=== PATIENT | male | born 1950 | race Caucasian/White ===

== ENCOUNTER 2017-09-23 20:06 | Emergency (ER) | payer MEDICARE, OTHER ==
[2017-09-23 20:38] VITALS: RESP 18
[2017-09-23] MEDS ORDERED: LORazepam 2 MG/ML INJ IV STA (20:49)
--- NOTE | 2017-09-23 21:05 | XR ---
EXAMINATION TYPE: XR chest 2V DATE OF EXAM: 09/23/2017 COMPARISON: 10/26/2012 INDICATION: Difficulty breathing short of breath TECHNIQUE: Frontal and lateral views of the chest are obtained. FINDINGS: The heart size is normal. The pulmonary vasculature is normal. The lungs are clear. Previous left lower lobe infiltrate has resolved. IMPRESSION: 1. No acute pulmonary process.
[2017-09-23 21:10] LABS: Basophils # (A) 0.1 k/uL (0-0.2); Basophils % (A) 1 %; Eosinophils # (A) 0.3 k/uL (0-0.7); Eosinophils % (A) 3 %; HCT 40.2 % (39.0-53.0); HGB 14.2 gm/dL (13.0-17.5); Hyperchromasia Slight; Lymphocytes # (A) 1.9 k/uL (1.0-4.8); Lymphocytes % (A) 21 %; MCH 30.5 pg (25.0-35.0); MCHC 35.5 g/dL (31.0-37.0); Mean Platelet Volume 8.4; Monocytes # (A) 0.6 k/uL (0-1.0); Monocytes % (A) 6 %; Neutrophils # (A) 6.2 k/uL (1.3-7.7); Neutrophils % (A) 68 %; Platelet Count 152 k/uL (150-450); Poikilocytosis Slight; RBC 4.67 m/uL (4.30-5.90); RDW 14.9 % (11.5-15.5)
[2017-09-23 21:21] LABS: ALT 35 U/L (21-72); AST 27 U/L (17-59); Albumin 4.1 g/dL (3.5-5.0); Alkaline Phosphatase 85 U/L (38-126); Anion Gap 12 mmol/L; Blood Urea Nitrogen 18 mg/dL (9-20); Carbon Dioxide 27 mmol/L (22-30); Chloride 105 mmol/L (98-107); Glucose 119 mg/dL (74-99); Magnesium 1.7 mg/dL (1.6-2.3); Potassium 4.2 mmol/L (3.5-5.1); Sodium 144 mmol/L (137-145); Total Bilirubin 0.5 mg/dL (0.2-1.3); Total Protein 6.3 g/dL (6.3-8.2)
--- NOTE | 2017-09-23 21:24 | ED ---
General Adult HPI - General Chief complaint: Dizziness Stated complaint: Lightheaded Time Seen by Provider: 09/23/17 20:44 Source: patient, family, RN notes reviewed Mode of arrival: wheelchair Limitations: no limitations - History of Present Illness Initial comments: Patient is a pleasant 67-year-old male presenting to the emergency department for not feeling well. Onset of symptoms was around noon. Patient denies having any chest discomfort despite being asked 4 times. He was even brought up to him that nursing had documented concerns for chest discomfort and he still denies this. Son is present who also denies patient never complained of chest discomfort. Patient states both of his arms feel tingly. Patient feels lightheaded. Patient does feel somewhat short of breath. Symptoms have been waxing and waning since onset. Symptoms are somewhat mild at this time. Patient does have a history of similar symptoms in the distant past related to anxiety. - Related Data Home Medications Medication Instructions Recorded Confirmed Aspirin EC [Ecotrin Low Dose] 81 mg PO DAILY 09/23/17 09/23/17 Atenolol [Tenormin] 25 mg PO DAILY 09/23/17 09/23/17 Atorvastatin Calcium [Lipitor] 80 mg PO HS 09/23/17 09/23/17 Lisinopril [Prinivil] 10 mg PO DAILY 09/23/17 09/23/17 Multivitamins, Thera [Multivitamin 1 tab PO DAILY 09/23/17 09/23/17 (formulary)] Sertraline HCl [Zoloft] 100 mg PO DAILY 09/23/17 09/23/17 Allergies Allergy/AdvReac Type Severity Reaction Status Date / Time No Known Allergies Allergy Verified 09/23/17 20:56 Review of Systems ROS Statement: Those systems with pertinent positive or pertinent negative responses have been documented in the HPI. ROS Other: All systems not noted in ROS Statement are negative. Constitutional: Denies: fever Eyes: Denies: eye pain ENT: Denies: ear pain Respiratory: Reports: dyspnea Cardiovascular: Denies: chest pain Endocrine: Reports: fatigue Gastrointestinal: Denies: abdominal pain Genitourinary: Denies: dysuria Musculoskeletal: Denies: back pain Skin: Denies: rash Neurological: Reports: paresthesias. Denies: weakness Past Medical History Past Medical History: Coronary Artery Disease (CAD), Hyperlipidemia, Hypertension History of Any Multi-Drug Resistant Organisms: None Reported Past Surgical History: Coronary Bypass/CABG Additional Past Surgical History / Comment(s): skin cancers Past Psychological History: Anxiety Smoking Status: Current some day smoker Past Alcohol Use History: None Reported Past Drug Use History: None Reported General Exam Limitations: no limitations General appearance: alert, in no apparent distress Head exam: Present: atraumatic Eye exam: Present: normal appearance, PERRL, EOMI. Absent: nystagmus ENT exam: Present: normal oropharynx Neck exam: Present: normal inspection Respiratory exam: Present: normal lung sounds bilaterally Cardiovascular Exam: Present: regular rate, normal rhythm GI/Abdominal exam: Present: soft. Absent: tenderness Extremities exam: Present: normal inspection. Absent: pedal edema, calf tenderness Neurological exam: Present: alert, CN II-XII intact. Absent: motor sensory deficit Expanded Neurological exam: Present: protecting the airway Speech: Present: fluid speech Cranial nerves: EOM's Intact: Normal, Facial Sensation: Normal Sensory exam: Upper Extremity Light Touch: Normal, Lower Extremity Light Touch: Normal Motor strength exam: RUE: 5, LUE: 5, RLE: 5, LLE: 5 Eye Response: (4) open spontaneously Motor Response: (6) obeys commands Verbal Response: (5) oriented Psychiatric exam: Present: normal affect, normal mood Skin exam: Present: normal color Course Vital Signs 09/23/17 09/23/17 09/23/17 20:09 20:37 21:07 Temperature 97.8 F Pulse Rate 85 71 Respiratory 20 18 18 Rate Blood Pressure 191/85 124/66 O2 Sat by Pulse 95 96 Oximetry 09/23/17 21:41 Temperature Pulse Rate 74 Respiratory 18 Rate Blood Pressure 117/61 O2 Sat by Pulse 95 Oximetry EKG Findings - EKG Comments: EKG Findings:: Normal sinus rhythm 80. [place] 158. QRS 100. QT 398. QTC 459. Normal axis. Right ventricular conduction delay. Normal QRS. No acute ST change. Medical Decision Making - Medical Decision Making Patient reevaluated and symptom-free following Ativan. Patient and family are updated on results. Patient is comfortable with discharge home. - Lab Data Result diagrams: 09/23/17 21:05 09/23/17 21:05 Lab Results 09/23/17 09/23/17 09/23/17 Range/Units 21:05 21:05 21:05 WBC 9.0 (3.8-10.6) k/uL RBC 4.67 (4.30-5.90) m/uL Hgb 14.2 (13.0-17.5) gm/dL Hct 40.2 (39.0-53.0) % MCV 86.0 (80.0-100.0) fL MCH 30.5 (25.0-35.0) pg MCHC 35.5 (31.0-37.0) g/dL RDW 14.9 (11.5-15.5) % Plt Count 152 (150-450) k/uL Neutrophils % 68 % Lymphocytes % 21 % Monocytes % 6 % Eosinophils % 3 % Basophils % 1 % Neutrophils # 6.2 (1.3-7.7) k/uL Lymphocytes # 1.9 (1.0-4.8) k/uL Monocytes # 0.6 (0-1.0) k/uL Eosinophils # 0.3 (0-0.7) k/uL Basophils # 0.1 (0-0.2) k/uL Hyperchromasia Slight Poikilocytosis Slight PT (9.0-12.0) sec INR (<1.2) APTT (22.0-30.0) sec D-Dimer (<0.60) mg/L FEU Sodium 144 (137-145) mmol/L Potassium 4.2 (3.5-5.1) mmol/L Chloride 105 (98-107) mmol/L Carbon Dioxide 27 (22-30) mmol/L Anion Gap 12 mmol/L BUN 18 (9-20) mg/dL Creatinine 0.77 (0.66-1.25) mg/dL Est GFR (CKD-EPI)AfAm >90 (>60 ml/min/1.73 sqM) Est GFR (CKD-EPI)NonAf >90 (>60 ml/min/1.73 sqM) Glucose 119 H (74-99) mg/dL Calcium 9.0 (8.4-10.2) mg/dL Magnesium 1.7 (1.6-2.3) mg/dL Total Bilirubin 0.5 (0.2-1.3) mg/dL AST 27 (17-59) U/L ALT 35 (21-72) U/L Alkaline Phosphatase 85 (38-126) U/L Total Creatine Kinase 94 (55-170) U/L CK-MB (CK-2) 2.1 (0.0-2.4) ng/mL CK-MB (CK-2) Rel Index 2.2 Troponin I <0.012 (0.000-0.034) ng/mL NT-Pro-B Natriuret Pep pg/mL Total Protein 6.3 (6.3-8.2) g/dL Albumin 4.1 (3.5-5.0) g/dL 09/23/17 09/23/17 Range/Units 21:05 21:05 WBC (3.8-10.6) k/uL RBC (4.30-5.90) m/uL Hgb (13.0-17.5) gm/dL Hct (39.0-53.0) % MCV (80.0-100.0) fL MCH (25.0-35.0) pg MCHC (31.0-37.0) g/dL RDW (11.5-15.5) % Plt Count (150-450) k/uL Neutrophils % % Lymphocytes % % Monocytes % % Eosinophils % % Basophils % % Neutrophils # (1.3-7.7) k/uL Lymphocytes # (1.0-4.8) k/uL Monocytes # (0-1.0) k/uL Eosinophils # (0-0.7) k/uL Basophils # (0-0.2) k/uL Hyperchromasia Poikilocytosis PT 9.6 (9.0-12.0) sec INR 1.0 (<1.2) APTT 22.9 (22.0-30.0) sec D-Dimer 0.66 H (<0.60) mg/L FEU Sodium (137-145) mmol/L Potassium (3.5-5.1) mmol/L Chloride (98-107) mmol/L Carbon Dioxide (22-30) mmol/L Anion Gap mmol/L BUN (9-20) mg/dL Creatinine (0.66-1.25) mg/dL Est GFR (CKD-EPI)AfAm (>60 ml/min/1.73 sqM) Est GFR (CKD-EPI)NonAf (>60 ml/min/1.73 sqM) Glucose (74-99) mg/dL Calcium (8.4-10.2) mg/dL Magnesium (1.6-2.3) mg/dL Total Bilirubin (0.2-1.3) mg/dL AST (17-59) U/L ALT (21-72) U/L Alkaline Phosphatase (38-126) U/L Total Creatine Kinase (55-170) U/L CK-MB (CK-2) (0.0-2.4) ng/mL CK-MB (CK-2) Rel Index Troponin I (0.000-0.034) ng/mL NT-Pro-B Natriuret Pep 189 pg/mL Total Protein (6.3-8.2) g/dL Albumin (3.5-5.0) g/dL - Radiology Data Radiology results: report reviewed (Computed tomography scan shows no evidence of pulmonary embolism. Nonspecific lymph nodes.), image reviewed (Chest x-ray shows postoperative change. No acute pulmonary process.) Disposition Clinical Impression: Dyspnea Disposition: HOME SELF-CARE Condition: Stable Instructions: Dyspnea (ED), Anxiety (ED), Lightheadedness (ED) Additional Instructions: Please follow-up to primary care physician in the next day or 2 for recheck. Return for chest pain, difficulty breathing, weakness, worsening or changing symptoms or other concerns. Is patient prescribed a controlled substance at d/c from ED?: No Referrals: Toño Martin MD [Primary Care Provider] - 1-2 days Time of Disposition: 23:46
[2017-09-23 21:26] LABS: Creatine Kinase 94 U/L (55-170)
[2017-09-23 21:39] LABS: Creatine Kinase MB 2.1 ng/mL (0.0-2.4); Troponin I <0.012 ng/mL (0.000-0.034)
[2017-09-23 22:26] LABS: Partial Thromboplastin Time 22.9 sec (22.0-30.0); Prothrombin Time 9.6 sec (9.0-12.0)
[2017-09-23 22:35] LABS: D-Dimer 0.66 mg/L FEU (<0.60)
[2017-09-23] MEDS ORDERED: RX INFO: IV CONTRAST WAS GIVEN 1 EACH MISC MISCELLANE PRN (22:50)
--- NOTE | 2017-09-23 23:39 | CT ---
EXAMINATION TYPE: CT angio chest DATE OF EXAM: 09/23/2017 11:28 PM COMPARISON: NONE HISTORY: dizziness, lightheaded and elevated D-dimer CT DLP: 721.10 mGycm Automated exposure control for dose reduction was used. CONTRAST: CTA scan of the thorax is performed with IV Contrast, patient injected with 80 mL of Isovue 370, pulm onary embolism protocol. There are 3-D post processed images.. FINDINGS: Breast aorta is atheromatous. There is no evidence of aneurysm or dissection. Heart is probably enlarged. There is no pericardial effusion. There is no pleural effusion. There is minimal subsegmental atelectasis at the lung bases. There is no evidence of a pulmonary mass. I see no filling defects in the pulmonary arteries. There are no hilar masses. There are a few medias tinal lymph nodes that measure up to 2 cm. There is spurring in the thoracic spine. I see no bony victor m tructive process. There are sternal wires. IMPRESSION: NO EVIDENCE OF PULMONARY EMBOLISM. MILD ATHEROSCLEROTIC VASCULAR DISEASE. MILD SUBSEGMENTAL ATELECTASIS AT THE LUNG BASES. NONSPECIFIC SCATTERED MEDIASTINAL LYMPH NODES.
[2017-09-23 23:58] VITALS: BP 113/60; PULSE 66; TEMP 97.3
== END 2017-09-24 00:03 | disposition home or self-care (01) ==
LOC: EC 20:06
DX: R06.02 Shortness of breath (principal); R20.2 Paresthesia of skin; R42 Dizziness and giddiness; E78.5 Hyperlipidemia, unspecified; I10 Essential (primary) hypertension; I25.10 Atherosclerotic heart disease of native coronary artery without angina pectoris; F41.9 Anxiety disorder, unspecified; F17.200 Nicotine dependence, unspecified, uncomplicated; Z79.82 Long term (current) use of aspirin; Z79.899 Other long term (current) drug therapy; Z95.1 Presence of aortocoronary bypass graft
CPT/HCPCS: 36415; 93005; 85379; 83880; 80053; 82550; 82553; 83735; 84484; 85025; 85610; 85730; 71046; 71275; 99284; 96374; J2060; Q9967

== ENCOUNTER → 2017-11-08 | Outpatient (CLI) | payer MEDICARE, OTHER ==
[2017-11-08 08:54] LABS: ALT 41 U/L (21-72); AST 29 U/L (17-59); Cholesterol 119 mg/dL (<200); HDL Cholesterol 30 mg/dL (40-60); LDL Cholesterol,Calculated 59 mg/dL (0-99); Triglycerides 149 mg/dL (<150)
== END | disposition home or self-care (01) ==
LOC: LABWHC1 07:07
PROVIDERS: ATTEND Internal Medicine Interventional Cardiology
DX: E78.2 Mixed hyperlipidemia (principal)
CPT/HCPCS: 80061; 84450; 84460

== ENCOUNTER → 2017-11-08 | Outpatient (CLI) | payer MEDICARE, OTHER ==
[2017-11-08 07:30] LABS: Anisocytosis Slight; HGB 13.9 gm/dL (13.0-17.5); Hyperchromasia Slight; MCHC 34.8 g/dL (31.0-37.0); MCV 89.1 fL (80.0-100.0); Mean Platelet Volume 7.9; Platelet Count 145 k/uL (150-450); Poikilocytosis Slight; RBC 4.49 m/uL (4.30-5.90); RDW 16.5 % (11.5-15.5); WBC 6.3 k/uL (3.8-10.6)
[2017-11-08 07:41] LABS: Anion Gap 13 mmol/L; Blood Urea Nitrogen 17 mg/dL (9-20); Carbon Dioxide 26 mmol/L (22-30); Chloride 106 mmol/L (98-107); Potassium 4.3 mmol/L (3.5-5.1); Sodium 145 mmol/L (137-145)
== END ==
LOC: LABPAT 07:04
PROVIDERS: ATTEND Internal Medicine Interventional Cardiology
DX: Z01.812 Encounter for preprocedural laboratory examination (principal); R07.9 Chest pain, unspecified
CPT/HCPCS: 36415; 80051; 82565; 84520; 85027

== ENCOUNTER 2017-11-11 06:16 | Day surgery (SDC) | payer MEDICARE, OTHER ==
[2017-11-04 12:01] VITALS: BMI 36.2
[~2017-11-11 06:16] MED LIST: ALPRAZolam 0.25 MG TAB PO PRN; ALPRAZolam 0.5 MG TAB PO PRN; ASPIRIN 325 MG TAB PO STA; ATORVASTATIN 80 MG TAB PO STA; NITROGLYCERIN SL TABS 0.4 MG TAB SUBLINGUAL PRN; SODIUM CHLORIDE 0.9% 1,000 ML in EMPTY BAG 1 BAG IV ONE
[2017-11-11 06:50] VITALS: TEMP 98.1
[2017-11-11] MEDS ORDERED: fentaNYL (PF) 50 MCG/ML 2 ML AMP IV ONE (07:35)
[2017-11-11] MEDS ORDERED: diphenhydrAMINE 50 MG/ML 1 ML VIAL IVP ONE (07:35)
[2017-11-11] MEDS ORDERED: LIDOCAINE 2% INJ 20 MG/ML SQ ONE (07:41)
[2017-11-11] MEDS ORDERED: IOPAMIDOL-370 125ML BTL INJ ONE ×2 (07:53→08:07)
[2017-11-11] MEDS ORDERED: IOPAMIDOL-370 50ML BTL INJ ONE (08:12)
[2017-11-11] MEDS ORDERED: RX INFO: IV CONTRAST WAS GIVEN 1 EACH MISC MISCELLANE PRN (08:31)
[2017-11-11 08:33] VITALS: RESP 16
[2017-11-11] MEDS ORDERED: SODIUM CHLORIDE 0.9% 1,000 ML IV SCH (08:45)
[2017-11-11] MEDS ORDERED: MULTIVITAMINS, THERA 1 EACH TAB PO SCH (09:00)
[2017-11-11] MEDS ORDERED: SERTRALINE 100 MG TAB PO SCH (09:00)
[2017-11-11] MEDS ORDERED: ATENOLOL 25 MG TAB PO SCH (09:00)
[2017-11-11] MEDS ORDERED: LISINOPRIL 10 MG TAB PO SCH (09:00)
[2017-11-11] MEDS ORDERED: NON-FORMULARY DRUG (Aspirin Ec 81 MG) PO SCH (09:00)
--- NOTE | 2017-11-11 09:41 | CC ---
CARDIAC CATHETERIZATION REPORT Mr. Shelley is a 67-year-old male with known history of coronary artery disease, status post coronary artery bypass grafting who has been complaining of episode of chest discomfort. He underwent a stress test that revealed evidence of lateral wall ischemia. In view of that, recommendation was made regarding cardiac catheterization. The procedure as well as the risks and complications were discussed with the patient who is in full understanding and agreement. PROCEDURE: Patient was brought to the clinical lab specialist in the fasting semi-sedated state after receiving fentanyl and Benadryl and achieving moderate conscious sedated state. Using Xylocaine anesthesia in the Seldinger technique, a 6-Sammarinese sheath was introduced in the right femoral artery. Selective right and left angiography performed with 6-Sammarinese 4 bend right and left Shavon catheter. Multiple views of the coronary artery including hemiaxial views obtained. Following that, the 6-Sammarinese FR4 catheter was used to cannulate the saphenous vein graft to the diagonal branch, saphenous vein graft to the right coronary artery as well as HERRERA to LAD. Images of the grafts were obtained. Following that, a 6-Sammarinese tight pigtail catheter was introduced in the left ventricle and a 30-degree CHAN view of the left ventricle was obtained. Following that, an [place] view of the ascending aorta was performed. Following that, the 6-Sammarinese left coronary bypass catheter was introduced and images of the grafts were obtained. Following that, catheter and sheaths were removed. Hemostasis was obtained with deployment of an Angio- Seal. There was no immediate complication. Patient is returned to his room in stable condition. FINDINGS: LEFT MAIN: This is a short size vessel bifurcating immediately to left anterior descending artery and left circumflex. The left main coronary artery has no evidence of obstructive coronary artery disease. LEFT ANTERIOR DESCENDING ARTERY: This vessel has an 80% stenosis proximally. Subsequently, it is totally occluded with no significant antegrade flow. LEFT CIRCUMFLEX: This vessel is totally occluded proximally with minimal antegrade flow. There is retrograde filling in the distal circumflex through the ipsilateral collaterals, they appear to be small in caliber. RIGHT CORONARY ARTERY: This vessel gives rise to a large acute marginal branch proximally. Beyond that, the vessel is totally occluded. SAPHENOUS VEIN GRAFT TO THE DIAGONAL BRANCH: The proximal and distal anastomotic sites are patent. The flow into the diagonal branch is brisk. The diagonal branch caliber is small. There is retrograde filling into obtuse marginal branch. SAPHENOUS VEIN GRAFT TO THE RIGHT CORONARY ARTERY: The proximal and distal anastomotic sites are patent. The saphenous vein graft in the body of the graft is diffusely diseased and ectatic. The PDA is small in caliber. HERRERA to LAD: The distal anastomotic site is patent. The flow into the LAD is brisk. There is retrograde filling into what appears to be a proximal diagonal branch. LEFT VENTRICULOGRAM: The left ventriculogram was performed 30-degree CHAN view and revealed normal left ventricular size and systolic function. There was arrhythmia induced mitral regurgitation. AORTOGRAM: Aortogram was performed in the [place] view and revealed a normal appearance of the right cuspid aortic valve with normal appearance of the ascending aorta. HEMODYNAMICS: There was no gradient across the aortic valve. The left ventricular end- diastolic pressure was 20 to 24 mmHg. CONCLUSION: 1. Severe triple-vessel coronary artery disease. 2. Patent HERRERA to LAD. 3. Patent saphenous vein graft to diagonal branch. 4. Patent saphenous vein graft to the right coronary artery. 5. Totally occluded saphenous vein graft to the OM. 6. Normal left ventricular size and systolic function. 7. Normal appearance of the ascending aorta. RECOMMENDATION: At this time, I will maximize his medical therapy and depending on his progress, attempt to proceed with angioplasty and stenting of a chronic total occlusion of the circumflex can be taken. Those findings and recommendation were discussed with the patient and his family and they are in full understanding and agreement. Duration of the procedure is 35 minutes. MMODL / IJN: [id number] /
--- NOTE | 2017-11-11 09:47 | LTR ---
November 11, 2017 Re: Felipe Shelley Dear Dr. Martin: I had the opportunity to perform cardiac catheterization on Mr. Shelley at [facility] on the 11 of November and a full copy of the procedure note will be forwarded to you. In brief, he was found to have severe triple-vessel coronary artery disease with patent saphenous vein graft to the diagonal branch, right coronary artery and patent HERRERA to LAD with chronic occluded left circumflex and occluded saphenous vein graft to the obtuse marginal branch. At this time, I will maximize his medical therapy and depending on his progress, further recommendation will be made. I will keep you updated on his progress and thank you again for allowing me the opportunity to participate in his care. Please feel free to call for any questions. Sincerely yours, MD PATEL Will / BOBBI: [id number] /
[2017-11-11 11:19] VITALS: BP 132/78; PULSE 75
[2017-11-11] MEDS ORDERED: ATORVASTATIN 80 MG TAB PO SCH (21:00)
== END 2017-11-11 14:53 | disposition home or self-care (01) ==
LOC: CATHCVL 06:16
PROVIDERS: ATTEND Internal Medicine Interventional Cardiology
DX: I25.10 Atherosclerotic heart disease of native coronary artery without angina pectoris (principal); I25.810 Atherosclerosis of coronary artery bypass graft(s) without angina pectoris; I10 Essential (primary) hypertension; E78.2 Mixed hyperlipidemia; E66.9 Obesity, unspecified; Z95.1 Presence of aortocoronary bypass graft; I25.82 Chronic total occlusion of coronary artery; Z79.899 Other long term (current) drug therapy; Z68.36 Body mass index [BMI] 36.0-36.9, adult; Z79.82 Long term (current) use of aspirin
CPT/HCPCS: 93459; C1760; C1894; C1769; J2001; J1200; J3010; Q9967 ×2

== ENCOUNTER 2019-05-19 18:08 | Emergency (ER) | payer MEDICARE, OTHER ==
[2019-05-19 18:16] VITALS: TEMP 97.7
--- NOTE | 2019-05-19 18:27 | ED ---
Abdominal Pain HPI - General Chief Complaint: Abdominal Pain Stated Complaint: Abd Pain Time Seen by Provider: 05/19/19 18:21 Source: patient, RN notes reviewed, old records reviewed Mode of arrival: ambulatory Limitations: no limitations - History of Present Illness Initial Comments: this is a 68-year-old male presented for evaluation regards to the bowel pain, suprapubic pain and periumbilical pain in nature. No prior history of similar complaints. No nausea no vomiting no diarrhea no fevers. No traumatic injury or known history patient is a colonoscopy which is normal.History of abdominal surgery. Symptoms for a few days now progressively worsening with decreased appetite. MD Complaint: abdominal pain -: days(s) Location: periumbilical, suprapubic Radiation: suprapubic Severity: moderate Severity scale (1-10): 6 Quality: cramping, aching Consistency: constant Improves With: nothing Worsens With: nothing Associated Symptoms: nausea - Related Data Home Medications Medication Instructions Recorded Confirmed Aspirin EC [Ecotrin Low Dose] 81 mg PO BID 09/23/17 11/11/17 Atenolol [Tenormin] 25 mg PO DAILY 09/23/17 11/11/17 Atorvastatin Calcium [Lipitor] 80 mg PO HS 09/23/17 11/11/17 Lisinopril [Prinivil] 10 mg PO DAILY 09/23/17 11/11/17 Multivitamins, Thera [Multivitamin 1 tab PO DAILY 09/23/17 11/11/17 (formulary)] Sertraline HCl [Zoloft] 150 mg PO DAILY 09/23/17 11/11/17 Allergies Allergy/AdvReac Type Severity Reaction Status Date / Time No Known Allergies Allergy Verified 05/19/19 18:13 Review of Systems ROS Statement: Those systems with pertinent positive or pertinent negative responses have been documented in the HPI. ROS Other: All systems not noted in ROS Statement are negative. Past Medical History Past Medical History: Coronary Artery Disease (CAD), Cancer, Hyperlipidemia, Hypertension, Sleep Apnea/CPAP/BIPAP Additional Past Medical History / Comment(s): hx:basal cell skin cancer, recent sleep apnea testing waiting for bipap machine History of Any Multi-Drug Resistant Organisms: None Reported Past Surgical History: Coronary Bypass/CABG, Heart Catheterization, Orthopedic Surgery Additional Past Surgical History / Comment(s): basal cell skin cancer removed, left wrist fx with repair Past Anesthesia/Blood Transfusion Reactions: No Reported Reaction Past Psychological History: Anxiety Smoking Status: Current every day smoker Past Alcohol Use History: None Reported Past Drug Use History: None Reported - Past Family History Sister(s) Family Medical History: Blood Disorder, Deep Vein Thrombosis (DVT) General Exam Limitations: no limitations General appearance: alert, in no apparent distress, obese Head exam: Present: atraumatic, normocephalic, normal inspection Eye exam: Present: normal appearance, PERRL, EOMI. Absent: scleral icterus, conjunctival injection, periorbital swelling ENT exam: Present: normal exam, mucous membranes moist Neck exam: Present: normal inspection. Absent: tenderness, meningismus, lymphadenopathy Respiratory exam: Present: normal lung sounds bilaterally. Absent: respiratory distress, wheezes, rales, rhonchi, stridor Cardiovascular Exam: Present: normal rhythm, tachycardia, normal heart sounds. Absent: systolic murmur, diastolic murmur, rubs, gallop, clicks GI/Abdominal exam: Present: soft, tenderness (periumbilical), normal bowel sounds. Absent: distended, guarding, rebound, rigid Extremities exam: Present: normal inspection, full ROM, normal capillary refill. Absent: tenderness, pedal edema, joint swelling, calf tenderness Back exam: Present: normal inspection Neurological exam: Present: alert, oriented X3, CN II-XII intact Psychiatric exam: Present: normal affect, normal mood Skin exam: Present: warm, dry, intact, normal color. Absent: rash Course Vital Signs 05/19/19 05/19/19 18:11 18:43 Temperature 97.7 F Pulse Rate 116 H 104 H Respiratory 18 16 Rate Blood Pressure 128/80 108/71 O2 Sat by Pulse 95 93 L Oximetry - Reevaluation(s) Reevaluation #1: 05/19/19 20:45 medical records reviewed in patient's pain is controlled Medical Decision Making - Lab Data Result diagrams: 05/19/19 18:39 05/19/19 18:39 Lab Results 05/19/19 05/19/19 05/19/19 Range/Units 18:39 18:39 18:39 WBC 11.1 H (3.8-10.6) k/uL RBC 4.68 (4.30-5.90) m/uL Hgb 14.5 (13.0-17.5) gm/dL Hct 41.0 (39.0-53.0) % MCV 87.5 (80.0-100.0) fL MCH 30.9 (25.0-35.0) pg MCHC 35.3 (31.0-37.0) g/dL RDW 15.1 (11.5-15.5) % Plt Count 164 (150-450) k/uL Neutrophils % 81 % Lymphocytes % 12 % Monocytes % 5 % Eosinophils % 1 % Basophils % 0 % Neutrophils # 8.9 H (1.3-7.7) k/uL Lymphocytes # 1.3 (1.0-4.8) k/uL Monocytes # 0.5 (0-1.0) k/uL Eosinophils # 0.1 (0-0.7) k/uL Basophils # 0.0 (0-0.2) k/uL Hyperchromasia Slight Poikilocytosis Slight Sodium 138 (137-145) mmol/L Potassium 4.2 (3.5-5.1) mmol/L Chloride 102 (98-107) mmol/L Carbon Dioxide 27 (22-30) mmol/L Anion Gap 9 mmol/L BUN 13 (9-20) mg/dL Creatinine 0.87 (0.66-1.25) mg/dL Est GFR (CKD-EPI)AfAm >90 (>60 ml/min/1.73 sqM) Est GFR (CKD-EPI)NonAf 88 (>60 ml/min/1.73 sqM) Glucose 115 H (74-99) mg/dL Plasma Lactic Acid Nicholas 1.4 (0.7-2.0) mmol/L Calcium 9.1 (8.4-10.2) mg/dL Total Bilirubin 1.6 H (0.2-1.3) mg/dL AST 21 (17-59) U/L ALT 17 (4-49) U/L Alkaline Phosphatase 80 (38-126) U/L Creatine Kinase 56 (55-170) U/L Troponin I (0.000-0.034) ng/mL Total Protein 6.9 (6.3-8.2) g/dL Albumin 4.2 (3.5-5.0) g/dL Amylase 39 (30-110) U/L Lipase 30 (23-300) U/L Urine Color Urine Appearance (Clear) Urine pH (5.0-8.0) Ur Specific [place] (1.001-1.035) Urine Protein (Negative) Urine Glucose (UA) (Negative) Urine Ketones (Negative) Urine Blood (Negative) Urine Nitrite (Negative) Urine Bilirubin (Negative) Urine Urobilinogen (<2.0) mg/dL Ur Leukocyte Esterase (Negative) Urine RBC (0-5) /hpf Urine WBC (0-5) /hpf Ur Squamous Epith Cells (0-4) /hpf Urine Bacteria (None) /hpf Urine Mucus (None) /hpf 05/19/19 05/19/19 Range/Units 18:39 19:00 WBC (3.8-10.6) k/uL RBC (4.30-5.90) m/uL Hgb (13.0-17.5) gm/dL Hct (39.0-53.0) % MCV (80.0-100.0) fL MCH (25.0-35.0) pg MCHC (31.0-37.0) g/dL RDW (11.5-15.5) % Plt Count (150-450) k/uL Neutrophils % % Lymphocytes % % Monocytes % % Eosinophils % % Basophils % % Neutrophils # (1.3-7.7) k/uL Lymphocytes # (1.0-4.8) k/uL Monocytes # (0-1.0) k/uL Eosinophils # (0-0.7) k/uL Basophils # (0-0.2) k/uL Hyperchromasia Poikilocytosis Sodium (137-145) mmol/L Potassium (3.5-5.1) mmol/L Chloride (98-107) mmol/L Carbon Dioxide (22-30) mmol/L Anion Gap mmol/L BUN (9-20) mg/dL Creatinine (0.66-1.25) mg/dL Est GFR (CKD-EPI)AfAm (>60 ml/min/1.73 sqM) Est GFR (CKD-EPI)NonAf (>60 ml/min/1.73 sqM) Glucose (74-99) mg/dL Plasma Lactic Acid Nicholas (0.7-2.0) mmol/L Calcium (8.4-10.2) mg/dL Total Bilirubin (0.2-1.3) mg/dL AST (17-59) U/L ALT (4-49) U/L Alkaline Phosphatase (38-126) U/L Creatine Kinase (55-170) U/L Troponin I 0.013 (0.000-0.034) ng/mL Total Protein (6.3-8.2) g/dL Albumin (3.5-5.0) g/dL Amylase (30-110) U/L Lipase (23-300) U/L Urine Color Yellow Urine Appearance Clear (Clear) Urine pH 5.5 (5.0-8.0) Ur Specific [place] 1.026 (1.001-1.035) Urine Protein Trace H (Negative) Urine Glucose (UA) Negative (Negative) Urine Ketones Negative (Negative) Urine Blood Small H (Negative) Urine Nitrite Negative (Negative) Urine Bilirubin Negative (Negative) Urine Urobilinogen 2.0 (<2.0) mg/dL Ur Leukocyte Esterase Negative (Negative) Urine RBC <1 (0-5) /hpf Urine WBC 1 (0-5) /hpf Ur Squamous Epith Cells <1 (0-4) /hpf Urine Bacteria Rare H (None) /hpf Urine Mucus Moderate H (None) /hpf Disposition Clinical Impression: Abdominal pain Disposition: HOME SELF-CARE Condition: Good Instructions (If sedation given, give patient instructions): Abdominal Pain ( ED) Is patient prescribed a controlled substance at d/c from ED?: No Referrals: Toño Martin MD [Primary Care Provider] - 1-2 days
[2019-05-19] MEDS ORDERED: ONDANSETRON 4 MG/2 ML VIAL IVP STA (18:45)
[2019-05-19] MEDS ORDERED: SODIUM CHLORIDE 0.9% 1,000 ML IV STA (18:45)
[2019-05-19] MEDS ORDERED: MORPHINE SULFATE 4 MG/ML SYRINGE IV STA (18:45)
[2019-05-19 19:35] LABS: Basophils % (A) 0 %; Eosinophils # (A) 0.1 k/uL (0-0.7); Eosinophils % (A) 1 %; HGB 14.5 gm/dL (13.0-17.5); Hyperchromasia Slight; Lymphocytes # (A) 1.3 k/uL (1.0-4.8); Lymphocytes % (A) 12 %; MCH 30.9 pg (25.0-35.0); MCHC 35.3 g/dL (31.0-37.0); MCV 87.5 fL (80.0-100.0); Mean Platelet Volume 8.6; Monocytes # (A) 0.5 k/uL (0-1.0); Monocytes % (A) 5 %; Neutrophils # (A) 8.9 k/uL (1.3-7.7); Neutrophils % (A) 81 %; Platelet Count 164 k/uL (150-450); Poikilocytosis Slight; RBC 4.68 m/uL (4.30-5.90); RDW 15.1 % (11.5-15.5); WBC 11.1 k/uL (3.8-10.6)
[2019-05-19 19:37] LABS: ALT 17 U/L (4-49); AST 21 U/L (17-59); African American GFR (CKD) >90 (>60 ml/min/1.73 sqM); Albumin 4.2 g/dL (3.5-5.0); Alkaline Phosphatase 80 U/L (38-126); Amylase 39 U/L (30-110); Anion Gap 9 mmol/L; Blood Urea Nitrogen 13 mg/dL (9-20); Calcium 9.1 mg/dL (8.4-10.2); Carbon Dioxide 27 mmol/L (22-30); Chloride 102 mmol/L (98-107); Creatine Kinase 56 U/L (55-170); Glucose 115 mg/dL (74-99); Non-African American GFR(CKD) 88 (>60 ml/min/1.73 sqM); Potassium 4.2 mmol/L (3.5-5.1); Sodium 138 mmol/L (137-145); Total Bilirubin 1.6 mg/dL (0.2-1.3); Total Protein 6.9 g/dL (6.3-8.2)
[2019-05-19 19:56] LABS: Appearance,Urine Clear (Clear); Bacteria,Urine Rare /hpf; Bilirubin,Urine Negative (Negative); Blood,Urine Small (Negative); Color,Urine Yellow; Glucose,Urine (UA) Negative (Negative); Ketones,Urine Negative (Negative); Leukocyte Esterase,Urine Negative (Negative); Mucus,Urine Moderate /hpf; Nitrite,Urine Negative (Negative); PH, Urine 5.5 (5.0-8.0); Protein,Urine Trace (Negative); RBC,Urine <1 /hpf (0-5); Specific Gravity,Urine 1.026 (1.001-1.035); Squamous Epithelial Cell,Urine <1 /hpf (0-4)
--- NOTE | 2019-05-19 20:49 | CT ---
EXAMINATION TYPE: CT abdomen pelvis w con DATE OF EXAM: 05/19/2019 COMPARISON: None HISTORY: lower anterior abdominal pain CT DLP: 2000.2 mGycm Automated exposure control for dose reduction was used. CONTRAST: Performed with IV Contrast, patient injected with 100 mL of Isovue 300. There is subsegmental atelectasis at the lung bases. Heart size is normal. There is no pericardial ef fusion. Liver and spleen appear normal. Bile ducts are not dilated. There is no pancreatic mass. Gall bladder appears normal. Stomach appears normal. There is no adrenal mass. Kidneys show satisfactory contrast opacification. There is no hydronephrosi s. There is no evidence of a renal mass. Ureters are not dilated. There is no retroperitoneal adenopa thy. There is mild free fluid in the pelvis. Bladder distends smoothly. There is 1 cm cortical cyst lateral right kidney. There is no inguinal hernia. There are multiple sigmoid diverticula. There is no sign of diverticulit is. There is anterior appendix which is thickened and fluid-filled. There is surrounding mild fat str anding. Appendix measures up to 12 mm. There is narrowing at L3-4 disc space. There is no lumbar compression fracture. I see no focal bone d estruction. Bony pelvis is intact. IMPRESSION: Thickened appendix with surrounding fat stranding consistent with acute appendicitis. No abscess. Mild sigmoid diverticulosis. Patchy atelectasis at the lung bases.
[2019-05-19 21:22] VITALS: BP 105/65; PULSE 105; RESP 18
== END 2019-05-19 21:21 | disposition home or self-care (01) ==
LOC: EC 18:08
DX: R10.33 Periumbilical pain (principal); R10.30 Lower abdominal pain, unspecified; R11.0 Nausea; I25.10 Atherosclerotic heart disease of native coronary artery without angina pectoris; I10 Essential (primary) hypertension; E78.5 Hyperlipidemia, unspecified; G47.30 Sleep apnea, unspecified; F41.9 Anxiety disorder, unspecified; F17.200 Nicotine dependence, unspecified, uncomplicated; Z79.82 Long term (current) use of aspirin; Z79.899 Other long term (current) drug therapy; Z95.1 Presence of aortocoronary bypass graft; Z99.89 Dependence on other enabling machines and devices; Z85.828 Personal history of other malignant neoplasm of skin
CPT/HCPCS: 36415; 80053; 82150; 82550; 83605; 83690; 84484; 85025; 81001; 74177; 99284; 96374; 96375; 96361; J2270; J2405; Q9967

== ENCOUNTER 2019-05-22 10:20 | Observation (INO) | payer OTHER, MEDICARE ==
[2019-05-22] MEDS ORDERED: SODIUM CHLORIDE 0.9% 1,000 ML IV STA (11:04)
--- NOTE | 2019-05-22 11:10 | ED ---
General Adult HPI - General Chief complaint: Abdominal Pain Stated complaint: Abdominal pain Time Seen by Provider: 05/22/19 10:24 Source: patient, RN notes reviewed Mode of arrival: ambulatory Limitations: no limitations - History of Present Illness Initial comments: patient is a pleasant 68-year-old male presenting to the emergency department with complaints of abdominal discomfort. Onset of symptoms was 5 days ago. Patient was in the emergency department 2-3 days ago. Patient did have computed tomography scan done. Patient states his discomfort is starting to improve however still has some mild symptoms. Patient has decreased appetite and slightly loose stools. No vomiting. No fevers. Discomfort is mild at the lower abdomen. Patient received a call from follow-up nurse who recommended patient come back to the emergency department. - Related Data Home Medications Medication Instructions Recorded Confirmed Aspirin EC [Ecotrin Low Dose] 81 mg PO DAILY 09/23/17 05/22/19 Atenolol [Tenormin] 25 mg PO DAILY 09/23/17 05/22/19 Atorvastatin Calcium [Lipitor] 80 mg PO HS 09/23/17 05/22/19 Lisinopril [Prinivil] 10 mg PO DAILY 09/23/17 05/22/19 Sertraline HCl [Zoloft] 150 mg PO DAILY 09/23/17 05/22/19 Allergies Allergy/AdvReac Type Severity Reaction Status Date / Time No Known Allergies Allergy Verified 05/22/19 11:33 Review of Systems ROS Statement: Those systems with pertinent positive or pertinent negative responses have been documented in the HPI. ROS Other: All systems not noted in ROS Statement are negative. Constitutional: Denies: fever Eyes: Denies: eye pain ENT: Denies: ear pain Respiratory: Denies: cough Cardiovascular: Denies: chest pain Endocrine: Denies: fatigue Gastrointestinal: Reports: abdominal pain. Denies: vomiting Genitourinary: Denies: dysuria, hematuria Musculoskeletal: Denies: back pain Skin: Denies: rash Neurological: Denies: weakness Past Medical History Past Medical History: Coronary Artery Disease (CAD), Cancer, Hyperlipidemia, H ypertension, Sleep Apnea/CPAP/BIPAP Additional Past Medical History / Comment(s): hx:basal cell skin cancer, recent sleep apnea testing waiting for bipap machine History of Any Multi-Drug Resistant Organisms: None Reported Past Surgical History: Coronary Bypass/CABG, Heart Catheterization, Orthopedic Surgery Additional Past Surgical History / Comment(s): basal cell skin cancer removed, left wrist fx with repair Past Anesthesia/Blood Transfusion Reactions: No Reported Reaction Past Psychological History: Anxiety Smoking Status: Current every day smoker Past Alcohol Use History: None Reported Past Drug Use History: None Reported - Past Family History Sister(s) Family Medical History: Blood Disorder, Deep Vein Thrombosis (DVT) General Exam Limitations: no limitations General appearance: alert, in no apparent distress Head exam: Present: normocephalic Eye exam: Present: normal appearance Neck exam: Present: normal inspection Respiratory exam: Present: normal lung sounds bilaterally Cardiovascular Exam: Present: regular rate, normal rhythm Expanded Peripheral pulses: 2+: Posterior Tibialis (R), Posterior Tibialis (L), Dorsalis Pedis (R), Dorsalis Pedis (L) GI/Abdominal exam: Present: soft, tenderness (mild tenderness lower abdomen), normal bowel sounds. Absent: distended, guarding, rebound, rigid, pulsatile mass Extremities exam: Present: normal inspection. Absent: calf tenderness Neurological exam: Present: alert Psychiatric exam: Present: normal affect, normal mood Skin exam: Present: normal color Course Vital Signs 05/22/19 10:24 Temperature 97.9 F Pulse Rate 56 L Respiratory 19 Rate Blood Pressure 118/73 O2 Sat by Pulse 99 Oximetry - Reevaluation(s) Reevaluation #1: 05/22/19 11:14 Case was discussed with Dr. Hughes who does recommend repeat computed tomography scan with 30 minute oral contrast. Medical Decision Making - Medical Decision Making patient reevaluated and updated. Case was again discussed with Dr. Hughes who will admit and requests IV antibiotics. - Lab Data Result diagrams: 05/22/19 11:23 05/22/19 11:23 Lab Results 05/22/19 05/22/19 05/22/19 Range/Units 11:23 11:23 11:23 WBC 5.5 (3.8-10.6) k/uL RBC 4.18 L (4.30-5.90) m/uL Hgb 13.2 (13.0-17.5) gm/dL Hct 36.6 L (39.0-53.0) % MCV 87.5 (80.0-100.0) fL MCH 31.5 (25.0-35.0) pg MCHC 36.0 (31.0-37.0) g/dL RDW 14.9 (11.5-15.5) % Plt Count 196 (150-450) k/uL Neutrophils % 67 % Lymphocytes % 21 % Monocytes % 5 % Eosinophils % 5 % Basophils % 0 % Neutrophils # 3.7 (1.3-7.7) k/uL Lymphocytes # 1.1 (1.0-4.8) k/uL Monocytes # 0.3 (0-1.0) k/uL Eosinophils # 0.3 (0-0.7) k/uL Basophils # 0.0 (0-0.2) k/uL Poikilocytosis Slight PT 10.0 (9.0-12.0) sec INR 0.9 (<1.2) APTT 23.7 (22.0-30.0) sec Sodium 142 (137-145) mmol/L Potassium 4.6 (3.5-5.1) mmol/L Chloride 109 H (98-107) mmol/L Carbon Dioxide 25 (22-30) mmol/L Anion Gap 8 mmol/L BUN 15 (9-20) mg/dL Creatinine 0.86 (0.66-1.25) mg/dL Est GFR (CKD-EPI)AfAm >90 (>60 ml/min/1.73 sqM) Est GFR (CKD-EPI)NonAf 89 (>60 ml/min/1.73 sqM) Glucose 110 H (74-99) mg/dL Calcium 8.9 (8.4-10.2) mg/dL Total Bilirubin 0.9 (0.2-1.3) mg/dL AST 27 (17-59) U/L ALT 26 (4-49) U/L Alkaline Phosphatase 72 (38-126) U/L Total Protein 6.4 (6.3-8.2) g/dL Albumin 3.8 (3.5-5.0) g/dL Amylase 41 (30-110) U/L Lipase 76 (23-300) U/L Urine Color Urine Appearance (Clear) Urine pH (5.0-8.0) Ur Specific [place] (1.001-1.035) Urine Protein (Negative) Urine Glucose (UA) (Negative) Urine Ketones (Negative) Urine Blood (Negative) Urine Nitrite (Negative) Urine Bilirubin (Negative) Urine Urobilinogen (<2.0) mg/dL Ur Leukocyte Esterase (Negative) 05/22/19 Range/Units 12:30 WBC (3.8-10.6) k/uL RBC (4.30-5.90) m/uL Hgb (13.0-17.5) gm/dL Hct (39.0-53.0) % MCV (80.0-100.0) fL MCH (25.0-35.0) pg MCHC (31.0-37.0) g/dL RDW (11.5-15.5) % Plt Count (150-450) k/uL Neutrophils % % Lymphocytes % % Monocytes % % Eosinophils % % Basophils % % Neutrophils # (1.3-7.7) k/uL Lymphocytes # (1.0-4.8) k/uL Monocytes # (0-1.0) k/uL Eosinophils # (0-0.7) k/uL Basophils # (0-0.2) k/uL Poikilocytosis PT (9.0-12.0) sec INR (<1.2) APTT (22.0-30.0) sec Sodium (137-145) mmol/L Potassium (3.5-5.1) mmol/L Chloride (98-107) mmol/L Carbon Dioxide (22-30) mmol/L Anion Gap mmol/L BUN (9-20) mg/dL Creatinine (0.66-1.25) mg/dL Est GFR (CKD-EPI)AfAm (>60 ml/min/1.73 sqM) Est GFR (CKD-EPI)NonAf (>60 ml/min/1.73 sqM) Glucose (74-99) mg/dL Calcium (8.4-10.2) mg/dL Total Bilirubin (0.2-1.3) mg/dL AST (17-59) U/L ALT (4-49) U/L Alkaline Phosphatase (38-126) U/L Total Protein (6.3-8.2) g/dL Albumin (3.5-5.0) g/dL Amylase (30-110) U/L Lipase (23-300) U/L Urine Color Yellow Urine Appearance Clear (Clear) Urine pH 5.5 (5.0-8.0) Ur Specific [place] 1.028 (1.001-1.035) Urine Protein Negative (Negative) Urine Glucose (UA) Negative (Negative) Urine Ketones Negative (Negative) Urine Blood Negative (Negative) Urine Nitrite Negative (Negative) Urine Bilirubin Negative (Negative) Urine Urobilinogen <2.0 (<2.0) mg/dL Ur Leukocyte Esterase Negative (Negative) - Radiology Data Radiology results: report reviewed (Computed tomography scan of the abdomen pelvis shows dilated appendix at 10 mm with some inflammation, improved from aaliyah or exam.) Disposition Clinical Impression: Acute appendicitis Disposition: ADMITTED IP TO THIS HOSP Is patient prescribed a controlled substance at d/c from ED?: No Referrals: Toño Martin MD [Primary Care Provider] - 1-2 days Decision Time: 14:22
[2019-05-22] MEDS ORDERED: IOPAMIDOL CONTRAST (ORAL USE) VIAL PO PRN (11:11)
[2019-05-22 11:45] LABS: Basophils % (A) 0 %; Eosinophils # (A) 0.3 k/uL (0-0.7); Eosinophils % (A) 5 %; HCT 36.6 % (39.0-53.0); HGB 13.2 gm/dL (13.0-17.5); Lymphocytes # (A) 1.1 k/uL (1.0-4.8); Lymphocytes % (A) 21 %; MCH 31.5 pg (25.0-35.0); MCV 87.5 fL (80.0-100.0); Mean Platelet Volume 9.6; Monocytes # (A) 0.3 k/uL (0-1.0); Monocytes % (A) 5 %; Neutrophils # (A) 3.7 k/uL (1.3-7.7); Neutrophils % (A) 67 %; Platelet Count 196 k/uL (150-450); Poikilocytosis Slight; RBC 4.18 m/uL (4.30-5.90); RDW 14.9 % (11.5-15.5); WBC 5.5 k/uL (3.8-10.6)
[2019-05-22 11:52] LABS: INR 0.9 (<1.2); Partial Thromboplastin Time 23.7 sec (22.0-30.0)
[2019-05-22 11:53] LABS: ALT 26 U/L (4-49); AST 27 U/L (17-59); African American GFR (CKD) >90 (>60 ml/min/1.73 sqM); Albumin 3.8 g/dL (3.5-5.0); Alkaline Phosphatase 72 U/L (38-126); Amylase 41 U/L (30-110); Anion Gap 8 mmol/L; Blood Urea Nitrogen 15 mg/dL (9-20); Calcium 8.9 mg/dL (8.4-10.2); Carbon Dioxide 25 mmol/L (22-30); Chloride 109 mmol/L (98-107); Glucose 110 mg/dL (74-99); Non-African American GFR(CKD) 89 (>60 ml/min/1.73 sqM); Potassium 4.6 mmol/L (3.5-5.1); Sodium 142 mmol/L (137-145); Total Bilirubin 0.9 mg/dL (0.2-1.3); Total Protein 6.4 g/dL (6.3-8.2)
[2019-05-22 12:51] LABS: Appearance,Urine Clear (Clear); Bilirubin,Urine Negative (Negative); Blood,Urine Negative (Negative); Color,Urine Yellow; Glucose,Urine (UA) Negative (Negative); Ketones,Urine Negative (Negative); Leukocyte Esterase,Urine Negative (Negative); Nitrite,Urine Negative (Negative); PH, Urine 5.5 (5.0-8.0); Protein,Urine Negative (Negative); Specific Gravity,Urine 1.028 (1.001-1.035); Urobilinogen,Urine <2.0 mg/dL (<2.0)
--- NOTE | 2019-05-22 12:51 | CT ---
EXAMINATION TYPE: CT abdomen pelvis w con DATE OF EXAM: 05/22/2019 COMPARISON: 05/19/2019 HISTORY: Abdominal pain, evaluate the appendix CT DLP: 1929.1 mGycm CONTRAST: CT scan of the abdomen and pelvis is performed with Oral Contrast and with IV Contrast, patient injec edna with 100 ml mL of Isovue 300. FINDINGS: LUNG BASES-: No visible nodule. No infiltrate. LIVER/GB: No calcified gallstones. No space occupying hepatic lesion. Biliary tree is of normal ca liber. PANCREAS: No inflammation. No distinct mass. SPLEEN: No splenic enlargement. No lesion seen. ADRENALS: No nodule. No thickening. KIDNEYS/BLADDER: No hydronephrosis. No nephrolithiasis simple cyst upper pole right kidneyUrinary b ladder grossly unremarkable. BOWEL: The appendix remains thickened at 10 mm versus 12 mm previously. Again the appendix is located anteriorly with only mild surrounding inflammatory change identified at this time which is improved relative to the prior study. There is evidence of perforation or abscess. Small and large bowel are o therwise unremarkable.. Sigmoid diverticulosis without diverticulitis. GENITAL ORGANS: No gross abnormality. LYMPH NODES: No greater than 1cm abdominal or pelvic lymph nodes are appreciated. AORTA: No significant abnormality. OSSEOUS STRUCTURES: No significant abnormality is seen. OTHER: No significant additional abnormality is seen. IMPRESSION: 1. Persistent but improved features of appendicitis. As noted there is continued thickening of the ap pendix at 10 mm versus 12 mm previously. In addition the amount of periappendiceal stranding noted pr eviously has improved as well. Again there is no evidence of perforation.
--- NOTE | 2019-05-22 13:25 | XR ---
KUB HISTORY: Abdomen pain Frontal KUB submitted on [address] to CT scan 05/22/2019 There is retained contrast material within the small and large bowel. Contrast is being excreted from the kidneys. Lung bases are clear. There is a spinal curvature. Patient is post median sternotomy. C ontrast present within the urinary bladder. Osteoarthritic change present within the right hip. No ev ident pneumoperitoneum or bowel obstruction. The spleen is enlarged. Probable phleboliths within the pelvis. IMPRESSION: Post CT findings. Splenomegaly. Additional findings above.
[2019-05-22] MEDS ORDERED: AMPICILLIN-SULBACTAM 3 GM in SODIUM CHLORIDE 0.9% 100 ML IVPB STA (14:21)
[2019-05-22] MEDS ORDERED: ONDANSETRON 4 MG/2 ML VIAL IVP PRN (14:44)
[2019-05-22] MEDS ORDERED: MORPHINE SULFATE 4 MG/ML SYRINGE IV PRN (14:44)
[2019-05-22] MEDS ORDERED: NALOXONE 0.4 MG/ML 1 ML VIAL IV PRN (14:44)
[2019-05-22] MEDS: SODIUM CHLORIDE 0.9% 1,000 ML IV SCH ×2 (15:03→21:08)
[2019-05-22 20:13] VITALS: RESP 18
[2019-05-22] MEDS ORDERED: ATORVASTATIN 80 MG TAB PO SCH (21:00)
--- NOTE | 2019-05-22 22:44 | CONS ---
CONSULTATION DATE OF SERVICE: 05/22/2019 REASON FOR CONSULTATION: Advice regarding history of coronary artery disease and other medical issues requested by Dr. Hughes. HISTORY OF PRESENT ILLNESS: This 68-year-old gentleman with past medical history of CAD, hypertension, hyperlipidemia, sleep apnea, history of basal cell skin cancer, CAD, CABG being followed by Dr. Martin in the outpatient setting is complaining of lower abdominal pain. The patient had abdominal pain since , which was initially located in the lower part of the abdomen which radiated into either side. Patient also had some diarrhea. The patient presented to the ER 2-[address] scan was done. Because of increased symptoms, patient came back and repeat CAT scan was done which showed persistent but some features of appendicitis. There was continued thickening of the appendix 10 mm versus 12 mm previously and the patient admitted to the hospital for further evaluation and treatment. There is no history of fever, rigors or chills. No history of headache, loss of consciousness, seizures at this time. PAST MEDICAL HISTORY: History of CAD, hypertension, hyperlipidemia, sleep apnea, history of CAD/CABG. MEDICATIONS: Prior to admission include: 1. Lipitor 80 mg q.h.s. 2. Zoloft 150 mg. 3. Prinivil 10 mg p.o. daily. 4. Tenormin 25 mg p.o. daily. 5. Ecotrin 81 mg p.o. daily. ALLERGIES: None. FAMILY HISTORY: History of blood disorder and DVT. SOCIAL HISTORY: History of smoking, continued ongoing. No history of alcohol intake. REVIEW OF SYSTEMS: ENT: No diminished vision. No diminished hearing. CARDIOVASCULAR: No angina or palpitations. RESPIRATION: As mentioned earlier. GASTROINTESTINAL: As mentioned earlier. no dysuria or hematuria. Nervous system: No numbness or weakness. ALLERGY/IMMUNOLOGY: No asthma or hay fever. MUSCULOSKELETAL as mentioned earlier. HEMATOLOGY/ONCOLOGY: No history of anemia. ENDOCRINE: No history of diabetes or hypothyroidism. CONSTITUTIONAL: As mentioned earlier. DERMATOLOGY: Negative. RHEUMATOLOGY: Negative. PSYCHIATRY: As mentioned earlier. PHYSICAL EXAMINATION: Alert and oriented times three. Pulse 55, blood pressure 102/58. Respirations 16, temperature 97.7, pulse ox 98% on room air. HEENT: Conjunctivae normal. Oral mucosa moist. NECK is no jugular venous distention. No carotid bruit. No lymph node enlargement. CARDIOVASCULAR system: S1, S2 muffled. No S3, no S4. RESPIRATORY: Breath sounds diminished in the bases. No rhonchi. No crackles. ABDOMEN: Soft, obese. Mild diffuse discomfort. No guarding. No rigidity. No mass palpable. Bowel sounds diminished. LEGS: No edema. No swelling. NERVOUS SYSTEM: Higher functions as mentioned earlier. Moves all 4 limbs. No focal motor or sensory deficits. LYMPHATICS: No lymph nodes palpable in the neck, axillae or groin. SKIN: No ulcer, no rashes and no bleeding. JOINTS: No active deforming arthropathy. LABS: Abdominal and pelvis scan reviewed which showed persistent but improved features of appendicitis as above with thickening of the appendix 10 mm versus 12 mm. ASSESSMENT: 1. Possible acute appendicitis. 2. Diarrhea possibly acute diarrheal disease. 3. Increased random blood sugar. 4. History of coronary artery disease, coronary artery bypass grafting. 5. Hypertension. 6. Hyperlipidemia. 7. History of sleep apnea. 8. History of basal cell carcinoma. 9. History of cardiac catheterization. 10.History of anxiety. 11.History of continued ongoing nicotine dependence. RECOMMENDATIONS AND DISCUSSION: This 68-year-old gentleman with a past medical history of multiple medical problems, at this time, I recommend to continue the current medications. Continue symptomatic treatment. Otherwise, the patient had a cardiac catheterization in 2018 just prior to the surgery apparently. Otherwise I would recommend resume the home medications and closely follow with empiric antibiotics and closely follow with surgery. Further recommendations to follow. See orders for details. The patient may be asked to follow with Dr. Martin closely after discharge. Discussed with the patient. Discussed with family. A copy of this dictation being forwarded to Dr. Martin who is the primary physician. MMODL / IJN: [id number] /
[2019-05-23] MEDS: AMPICILLIN-SULBACTAM 3 GM in SODIUM CHLORIDE 0.9% 100 ML IVPB SCH ×2 (00:13→09:18)
[2019-05-23 05:07] VITALS: BP 107/62; PULSE 79; TEMP 97.6
[2019-05-23 07:59] LABS: Basophils # (A) 0.1 k/uL (0-0.2); Basophils % (A) 1 %; Eosinophils # (A) 0.3 k/uL (0-0.7); Eosinophils % (A) 5 %; HCT 37.7 % (39.0-53.0); HGB 13.1 gm/dL (13.0-17.5); Lymphocytes % (A) 18 %; MCHC 34.7 g/dL (31.0-37.0); MCV 89.1 fL (80.0-100.0); Mean Platelet Volume 8.4; Monocytes # (A) 0.3 k/uL (0-1.0); Monocytes % (A) 5 %; Neutrophils # (A) 3.7 k/uL (1.3-7.7); Neutrophils % (A) 70 %; Platelet Count 193 k/uL (150-450); Poikilocytosis Slight; RBC 4.23 m/uL (4.30-5.90); WBC 5.3 k/uL (3.8-10.6)
[2019-05-23 08:13] LABS: African American GFR (CKD) >90 (>60 ml/min/1.73 sqM); Anion Gap 7 mmol/L; Blood Urea Nitrogen 13 mg/dL (9-20); Calcium 8.4 mg/dL (8.4-10.2); Carbon Dioxide 24 mmol/L (22-30); Chloride 111 mmol/L (98-107); Glucose 113 mg/dL (74-99); Non-African American GFR(CKD) >90 (>60 ml/min/1.73 sqM); Potassium 4.6 mmol/L (3.5-5.1); Sodium 142 mmol/L (137-145)
[2019-05-23] MEDS ORDERED: PANTOPRAZOLE 40 MG/10 ML VIAL IV SCH (09:00)
[2019-05-23] MEDS ORDERED: ATENOLOL 25 MG TAB PO SCH (09:00)
[2019-05-23] MEDS ORDERED: ASPIRIN 81 MG PO SCH (09:00)
[2019-05-23] MEDS ORDERED: SERTRALINE 100 MG TAB PO SCH (09:00)
[2019-05-23] MEDS ORDERED: LISINOPRIL 10 MG TAB PO SCH (09:00)
[2019-05-23] MEDS: SODIUM CHLORIDE 0.9% 1,000 ML IV SCH (09:18)
--- NOTE | 2019-05-23 13:26 | P.GSHP ---
History of Present Illness H&P Date: 05/23/19 This document serves as history and physical and also discharge summary CHIEF COMPLAINT: Abdominal pain HISTORY OF PRESENT ILLNESS: 68-year-old male who originally presented to the emergency room a chief complaint of abdominal pain. Patient was discharged home. Patient states he received a phone call from a hospital staff member directing him to come back to the emergency room due to an abnormal computed tomography scan. patient was found to have acute appendicitis. Thickening of the appendix is currently measuring 10 mm which is improved from 12 mm on previous scan. The amount of periappendiceal stranding noted previously has improved as well. No evidence of perforation. Patient was examined at the bedside Dr. Hughes. Patient denies any abdominal pain. Denies nausea or vomiting. He is tolerating diet. vital signs are stable. He is afebrile. WBC normal on admission at 5.5. PAST MEDICAL HISTORY: See list. PAST SURGICAL HISTORY: See list. SOCIAL HISTORY: No illicit drug use. REVIEW OF SYSTEMS: CONSTITUTIONAL: Denies fever or chills. HEENT: Denies blurred vision, vision changes, or eye pain. Denies hemoptysis CARDIOVASCULAR: Denies chest pain or pressure. RESPIRATORY: No shortness of breath. GASTROINTESTINAL: Refer to HPI for pertinent findings HEMATOLOGIC: Denies bleeding disorders. GENITOURINARY: Denies any blood in urine. SKIN: Denies pruitis. Denies rash. PHYSICAL EXAM: VITAL SIGNS: Reviewed. GENERAL: Well-developed in no acute distress. HEENT: No sclera icterus. Extraocular movements grossly intact. Moist buccal mucosa. Head is atraumatic, normocephalic. ABDOMEN: Soft. Nondistended. Nontender. NEUROLOGIC: Alert and oriented. Cranial nerves II through XII grossly intact. ASSESSMENT: 1. acute appendicitis, improving PLAN: Patient is stable for discharge home today per Dr. Hughes. Patient is to be discharged home on 7 days of oral Levaquin. Patient will follow-up with Dr. Hughes outpatient and will undergo interval appendectomy in the near future. Nurse practitioner note has been reviewed by physician. Signing provider agrees with the documented findings, assessment, and plan of care. Past Medical History Past Medical History: Coronary Artery Disease (CAD), Cancer, Hyperlipidemia, Hypertension, Sleep Apnea/CPAP/BIPAP Additional Past Medical History / Comment(s): hx:basal cell skin cancer, recent sleep apnea testing has bipap machine History of Any Multi-Drug Resistant Organisms: None Reported Past Surgical History: Coronary Bypass/CABG, Heart Catheterization, Orthopedic Surgery Additional Past Surgical History / Comment(s): basal cell skin cancer removed, left wrist fx with repair Past Anesthesia/Blood Transfusion Reactions: No Reported Reaction Past Psychological History: Anxiety Smoking Status: Current every day smoker Past Alcohol Use History: None Reported Additional Past Alcohol Use History / Comment(s): had smoked 40 years <1ppd quit for 3 years now smokes approx 10 cigaretts per day. Past Drug Use History: None Reported - Past Family History Sister(s) Family Medical History: Blood Disorder, Deep Vein Thrombosis (DVT) Medications and Allergies Home Medications Medication Instructions Recorded Confirmed Type Aspirin EC [Ecotrin Low Dose] 81 mg PO DAILY 09/23/17 05/22/19 History Atenolol [Tenormin] 25 mg PO DAILY 09/23/17 05/22/19 History Atorvastatin Calcium [Lipitor] 80 mg PO HS 09/23/17 05/22/19 History Lisinopril [Prinivil] 10 mg PO DAILY 09/23/17 05/22/19 History Sertraline HCl [Zoloft] 150 mg PO DAILY 09/23/17 05/22/19 History Levofloxacin [Levaquin] 750 mg PO DAILY #7 tab 05/23/19 Rx Allergies Allergy/AdvReac Type Severity Reaction Status Date / Time No Known Allergies Allergy Verified 05/22/19 11:33 Surgical - Exam Vital Signs Temp Pulse Resp BP Pulse Ox 97.9 F 56 L 19 118/73 99 05/22/19 10:24 05/22/19 10:24 05/22/19 10:24 05/22/19 10:24 05/22/19 10:24 Results - Labs 05/23/19 07:44 05/23/19 07:44 Abnormal Lab Results - Last 24 Hours (Table) 05/23/19 05/23/19 Range/Units 07:44 07:44 RBC 4.23 L (4.30-5.90) m/uL Hct 37.7 L (39.0-53.0) % Chloride 111 H (98-107) mmol/L Glucose 113 H (74-99) mg/dL Diabetes panel 05/23/19 Range/Units 07:44 Sodium 142 (137-145) mmol/L Potassium 4.6 (3.5-5.1) mmol/L Chloride 111 H (98-107) mmol/L Carbon Dioxide 24 (22-30) mmol/L BUN 13 (9-20) mg/dL Creatinine 0.77 (0.66-1.25) mg/dL Glucose 113 H (74-99) mg/dL Calcium 8.4 (8.4-10.2) mg/dL Calcium panel 05/23/19 Range/Units 07:44 Calcium 8.4 (8.4-10.2) mg/dL Pituitary panel 05/23/19 Range/Units 07:44 Sodium 142 (137-145) mmol/L Potassium 4.6 (3.5-5.1) mmol/L Chloride 111 H (98-107) mmol/L Carbon Dioxide 24 (22-30) mmol/L BUN 13 (9-20) mg/dL Creatinine 0.77 (0.66-1.25) mg/dL Glucose 113 H (74-99) mg/dL Calcium 8.4 (8.4-10.2) mg/dL Adrenal panel 05/23/19 Range/Units 07:44 Sodium 142 (137-145) mmol/L Potassium 4.6 (3.5-5.1) mmol/L Chloride 111 H (98-107) mmol/L Carbon Dioxide 24 (22-30) mmol/L BUN 13 (9-20) mg/dL Creatinine 0.77 (0.66-1.25) mg/dL Glucose 113 H (74-99) mg/dL Calcium 8.4 (8.4-10.2) mg/dL
--- NOTE | 2019-05-23 18:10 | PN ---
PROGRESS NOTE DATE OF SERVICE: 05/23/2019 This 68-year-old gentleman who was admitted with features of appendicitis is being closely monitored. Dr. Hughes has seen the patient and recommended a course of antibiotic treatment and possible surgery as an outpatient. No chest pain. No palpitations. No fever. PHYSICAL EXAMINATION: Alert and oriented x3. Pulse 79, blood pressure 101/62, respiration 18, temperature 97.6, pulse ox 96% on room air. HEENT: Conjunctivae normal. NECK: No jugular venous distention. CARDIOVASCULAR SYSTEM: S1, S2 muffled. RESPIRATORY SYSTEM: Breath sounds diminished at the bases. No rhonchi. No crackles. ABDOMEN: Soft, non-tender. No mass palpable. LEGS: No edema. No swelling. NERVOUS SYSTEM: No focal deficit. LABS: WBC 5.3, hemoglobin 13.1. ASSESSMENT: 1. Possible acute appendicitis. 2. Diarrhea, possibly secondary to appendicitis or diarrheal disease. 3. Increased random blood sugar. 4. History of coronary artery disease, coronary artery bypass grafting. 5. Hypertension. 6. Hyperlipidemia. 7. Sleep apnea. 8. History of basal cell carcinoma. 9. History of cardiac catheterization. 10.History of anxiety. 11.History of continued ongoing nicotine dependence. RECOMMENDATIONS AND DISCUSSION: I recommend to continue current medications, continue with the monitoring, symptomatic treatment. Otherwise, antibiotics. Closely follow. Rest of the recommendations per Surgery. Further recommendations to follow. Recommend close followup with primary physician in the outpatient setting, also. MMODL / IJN: [id number] /
== END 2019-05-23 12:45 | disposition home or self-care (01) ==
LOC: EC 10:20 → 5NMEDONC 14:44
PROVIDERS: ADMIT Surgery; ATTEND Surgery
DX: R10.9 Unspecified abdominal pain (principal); R19.7 Diarrhea, unspecified; R73.09 Other abnormal glucose; E78.5 Hyperlipidemia, unspecified; F17.200 Nicotine dependence, unspecified, uncomplicated; F41.9 Anxiety disorder, unspecified; G47.30 Sleep apnea, unspecified; Z99.89 Dependence on other enabling machines and devices; I10 Essential (primary) hypertension; I25.10 Atherosclerotic heart disease of native coronary artery without angina pectoris; Z79.82 Long term (current) use of aspirin; Z79.899 Other long term (current) drug therapy; Z85.828 Personal history of other malignant neoplasm of skin; Z95.1 Presence of aortocoronary bypass graft; Z87.81 Personal history of (healed) traumatic fracture; Z84.89 Family history of other specified conditions
CPT/HCPCS: 96361 ×3; 96366; 96375; 96365; 99285; 36415; 80053; 80048; 82150; 83690; 85025 ×2; 85610; 85730; 81003; 87040; 74018; 74177; G0378 ×2; J0295 ×2; C9113; Q9967

== ENCOUNTER 2019-06-12 11:01 | Day surgery (SDC) | payer MEDICARE, OTHER ==
[2019-06-02 10:45] VITALS: BMI 34.8
[~2019-06-12 11:01] MED LIST changes: -ALPRAZolam 0.25 MG TAB PO PRN; -ALPRAZolam 0.5 MG TAB PO PRN; -ASPIRIN 325 MG TAB PO STA; -ATORVASTATIN 80 MG TAB PO STA; +DEXAMETHASONE SOD PHOSPHATE 10 MG/ML 1 ML VIAL IV ONE; +HEPARIN SODIUM,PORCINE 5,000 UNIT/ML 1 ML VIAL SQ ONE; +LACTATED RINGERS 1,000 ML IV SCH; +LIDOCAINE 1% 20 ML VIAL (10MG/ML) FOR IV START INTRADERMA PRN; +MIDAZOLAM 2 MG/2 ML VIAL IV PRN; -NITROGLYCERIN SL TABS 0.4 MG TAB SUBLINGUAL PRN; -SODIUM CHLORIDE 0.9% 1,000 ML in EMPTY BAG 1 BAG IV ONE; +fentaNYL (PF) 50 MCG/ML 2 ML AMP IV PRN
[2019-06-12] MEDS ORDERED: DEXAMETHASONE SOD PHOSPHATE 10 MG/ML 1 ML VIAL IV ONE (12:02)
[2019-06-12] MEDS ORDERED: ONDANSETRON 4 MG/2 ML VIAL IVP ONE (12:13)
--- NOTE | 2019-06-12 12:13 | P.GSHP ---
History of Present Illness H&P Date: 06/12/19 Chief Complaint: Chronic Appendicitis This a 69-year-old male who was diagnosed with appendicitis approximately 1 month ago. Patient presents today for interval appendectomy. Patient aware the risks of surgery including conversion to the open procedure Past Medical History Past Medical History: Coronary Artery Disease (CAD), Cancer, Hyperlipidemia, Hypertension, Sleep Apnea/CPAP/BIPAP Additional Past Medical History / Comment(s): basal cell skin cancer, History of Any Multi-Drug Resistant Organisms: None Reported Past Surgical History: Coronary Bypass/CABG, Heart Catheterization, Orthopedic Surgery Additional Past Surgical History / Comment(s): basal cell skin cancer removed, left wrist fx with repair Past Anesthesia/Blood Transfusion Reactions: No Reported Reaction Smoking Status: Current every day smoker - Past Family History Sister(s) Family Medical History: Blood Disorder, Deep Vein Thrombosis (DVT) Medications and Allergies Home Medications Medication Instructions Recorded Confirmed Type Aspirin EC [Ecotrin Low Dose] 81 mg PO DAILY 09/23/17 06/12/19 History Atenolol [Tenormin] 25 mg PO QAM 09/23/17 06/02/19 History Atorvastatin Calcium [Lipitor] 80 mg PO HS 09/23/17 06/12/19 History Lisinopril [Prinivil] 10 mg PO QAM 09/23/17 06/02/19 History Sertraline HCl [Zoloft] 150 mg PO QAM 09/23/17 06/12/19 History Allergies Allergy/AdvReac Type Severity Reaction Status Date / Time No Known Allergies Allergy Verified 06/02/19 10:37 Surgical - Exam Vital Signs Temp Pulse Resp BP Pulse Ox 97.2 F L 71 16 136/74 94 L 06/12/19 11:29 06/12/19 11:29 06/12/19 11:29 06/12/19 11:29 06/12/19 11:29 - General well developed, well nourished, no distress - Eyes PERRL - ENT normal pinna - Neck no masses - Respiratory normal expansion - Cardiovascular Rhythm: regular - Abdomen Abdomen: soft, non tender Assessment and Plan Assessment: History of appendicitis. We'll perform laparoscopic appendectomy
[2019-06-12] MEDS ORDERED: NEOSTIGMINE 1 MG/ML 10 ML VIAL ONE (12:31)
[2019-06-12] MEDS ORDERED: GLYCOPYRROLATE 0.2 MG/ML 2 ML VIAL ONE (12:31)
[2019-06-12] MEDS ORDERED: ePHEDrine SULFATE/0.9% NACL/PF 50 MG/5 ML SYRINGE IV ONE (12:31)
[2019-06-12] MEDS ORDERED: fentaNYL (PF) 50 MCG/ML 2 ML AMP ONE (12:31)
[2019-06-12] MEDS ORDERED: PROPOFOL 10 MG/ML 20 ML VIAL IV ONE (12:31)
[2019-06-12] MEDS ORDERED: ROCURONIUM BROMIDE 10 MG/ML 10 ML VIAL IV ONE (12:31)
[2019-06-12] MEDS ORDERED: MIDAZOLAM 2 MG/2 ML VIAL ONE (12:31)
[2019-06-12] MEDS ORDERED: SUCCINYLCHOLINE CHLORIDE 100 MG/5 ML SYR IV ONE (12:31)
[2019-06-12] MEDS ORDERED: LIDOCAINE 1% INJ 10MG/ML (20 ML MDV) ONE (12:31)
[2019-06-12] MEDS: metroNIDAZOLE-NS PMX 500 MG in SALINE 1 100ML.BAG IVPB ONE ×2 (12:39→12:56)
[2019-06-12] MEDS ORDERED: BUPIVACAIN-EPI 0.25%-1:200,000 30 ML VIAL SQ ONE (12:55)
--- NOTE | 2019-06-12 13:08 | P.OP ---
Date of Procedure: 06/12/19 Preoperative Diagnosis: Chronic appendicitis Postoperative Diagnosis: Chronic appendicitis Procedure(s) Performed: Laparoscopic appendectomy Anesthesia: CESARA Surgeon: Virgilio Hughes Estimated Blood Loss (ml): 5 Pathology: other (Appendix) Condition: stable Disposition: PACU Description of Procedure: Harmonic appendectomy
[2019-06-12 13:29] VITALS: TEMP 96.9
[2019-06-12] MEDS ORDERED: LACTATED RINGERS 1,000 ML IV ONE ×2 (13:44)
[2019-06-12 14:42] VITALS: BP 110/64; PULSE 63; RESP 19
== END 2019-06-12 15:11 | disposition home or self-care (01) ==
LOC: OR 11:01
PROVIDERS: ATTEND Surgery
DX: K36 Other appendicitis (principal); I10 Essential (primary) hypertension; I25.10 Atherosclerotic heart disease of native coronary artery without angina pectoris; E78.5 Hyperlipidemia, unspecified; G47.30 Sleep apnea, unspecified; F17.210 Nicotine dependence, cigarettes, uncomplicated; Z99.89 Dependence on other enabling machines and devices; Z85.828 Personal history of other malignant neoplasm of skin; Z95.1 Presence of aortocoronary bypass graft; Z98.890 Other specified postprocedural states; Z82.49 Family history of ischemic heart disease and other diseases of the circulatory system; Z79.82 Long term (current) use of aspirin; Z79.899 Other long term (current) drug therapy
CPT/HCPCS: 88304; 44970; J2250; J1644; J1100; J2710; J0690; J2405; J2001; J3010; J0330; J2704

== ENCOUNTER 2020-09-10 08:44 | Inpatient (IN) | payer MEDICARE, OTHER ==
--- NOTE | 2020-09-10 10:25 | ED ---
General Adult HPI - General Chief complaint: Shortness of Breath Stated complaint: Covid+, worsening symptoms Time Seen by Provider: 09/10/20 09:50 Source: patient Mode of arrival: wheelchair Limitations: no limitations - History of Present Illness Initial comments: Dictation was produced using [employer] dictation software. please excuse any grammatical, word or spelling errors. This patient was cared for during a federal and state declared state of emergency secondary to Covid 19 Chief Complaint: 70-year-old male with past medical history of sleep apnea, coronary artery disease, dyslipidemia hypertension presents today with worsening shortness of breath. He has been Covid 19 positive for approximately 8 days History of Present Illness: She is a 70-year-old male presents to the emergency department for worsening shortness of breath. Patient tested positive for Covid 19 6 or 7 days ago. He states he got it from a friend who he normally brought to [facility]. Patient states that he has multiple comorbidities. States that his dyspnea is worsening. Does complain of some chills, fever and diarrhea. The ROS documented in this emergency department record has been reviewed and confirmed by me. Those systems with pertinent positive or negative responses have been documented in the HPI. All other systems are other negative and/or noncontributory. PHYSICAL EXAM: General Impression: Alert and oriented x3, not in acute distress HEENT: Normocephalic atraumatic, extra-ocular movements intact, pupils equal and reactive to light bilaterally, mucous membranes moist. Cardiovascular: Heart regular rate and rhythm Chest: Able to complete full sentences, no retractions, no tachypnea Abdomen: abdomen soft, non-tender, non-distended, no organomegaly Musculoskeletal: Pulses present and equal in all extremities, no peripheral edema Motor: no focal deficits noted Neurological: CN II-XII grossly intact, no focal motor or sensory deficits noted Skin: Intact with no visualized rashes Psych: Normal affect and mood ED course: 70-year-old male presents to the emergency department for worsening dyspnea. Patient has been Covid positive for approximately 8 days. Vital signs upon arrival are within acceptable limits. Ambulatory pulse ox was obtained. Patient oxygen saturation dropped to 84% after walking approximately 50 yards. Laboratory evaluation obtained. CBC unremarkable. Coag panel is unremarkable. D-dimer is slightly elevated 0.97. Metabolic panel is unremarkable. Patient does however have elevated inflammatory markers. Chest x-ray shows interstitial pneumonitis and patchy left infiltrate. Case is discussed with [facility] Dr. Shelley. There is concern of superimposed bacterial pneumonia. Patient given ceftriaxone and azithromycin along with Decadron. Patient's d-dimer is slightly elevated. Patient symptoms likely secondary covid 19 he is requiring supplemental oxygen. Patient given Tylenol. PE is unlikely given patient's clinical features and more likely diagnosis. Patient be admitted. - Related Data Home Medications Medication Instructions Recorded Confirmed Aspirin EC [Ecotrin Low Dose] 81 mg PO DAILY 09/23/17 09/10/20 Atorvastatin Calcium [Lipitor] 80 mg PO HS 09/23/17 09/10/20 Lisinopril [Prinivil] 10 mg PO DAILY 09/23/17 09/10/20 Sertraline HCl [Zoloft] 150 mg PO DAILY 09/23/17 09/10/20 atenoloL [Tenormin] 25 mg PO DAILY 09/23/17 09/10/20 Allergies Allergy/AdvReac Type Severity Reaction Status Date / Time No Known Allergies Allergy Verified 09/10/20 10:52 Review of Systems ROS Statement: Those systems with pertinent positive or pertinent negative responses have been documented in the HPI. ROS Other: All systems not noted in ROS Statement are negative. Past Medical History Past Medical History: Coronary Artery Disease (CAD), Cancer, Hyperlipidemia, Hypertension, Sleep Apnea/CPAP/BIPAP Additional Past Medical History / Comment(s): basal cell skin cancer, History of Any Multi-Drug Resistant Organisms: None Reported Past Surgical History: Coronary Bypass/CABG, Heart Catheterization, Orthopedic Surgery Additional Past Surgical History / Comment(s): basal cell skin cancer removed, left wrist fx with repair Past Anesthesia/Blood Transfusion Reactions: No Reported Reaction Past Psychological History: Anxiety Smoking Status: Never smoker Past Alcohol Use History: Rare Past Drug Use History: None Reported - Past Family History Sister(s) Family Medical History: Blood Disorder, Deep Vein Thrombosis (DVT) General Exam Limitations: no limitations Course Vital Signs 09/10/20 09/10/20 09/10/20 09:01 10:09 10:10 Temperature 100.8 F H Pulse Rate 91 Respiratory 18 Rate Blood Pressure 104/66 O2 Sat by Pulse 93 L 85 L 98 Oximetry 09/10/20 10:32 Temperature 103.1 F H Pulse Rate 87 Respiratory 20 Rate Blood Pressure 136/70 O2 Sat by Pulse 95 Oximetry Medical Decision Making - Lab Data Result diagrams: 09/10/20 10:23 09/10/20 10:23 Lab Results 09/10/20 09/10/20 09/10/20 Range/Units 10:23 10:23 10:23 WBC 6.7 (3.8-10.6) k/uL RBC 4.29 L (4.30-5.90) m/uL Hgb 12.9 L (13.0-17.5) gm/dL Hct 35.6 L (39.0-53.0) % MCV 82.9 (80.0-100.0) fL MCH 30.2 (25.0-35.0) pg MCHC 36.4 (31.0-37.0) g/dL RDW 16.1 H (11.5-15.5) % Plt Count 134 L (150-450) k/uL MPV 9.0 Neutrophils % 83 % Lymphocytes % 11 % Monocytes % 4 % Eosinophils % 1 % Basophils % 0 % Neutrophils # 5.6 (1.3-7.7) k/uL Lymphocytes # 0.7 L (1.0-4.8) k/uL Monocytes # 0.3 (0-1.0) k/uL Eosinophils # 0.1 (0-0.7) k/uL Basophils # 0.0 (0-0.2) k/uL Hyperchromasia Marked Poikilocytosis Moderate Anisocytosis Slight PT 10.2 (9.0-12.0) sec INR 0.9 (<1.2) APTT 25.3 (22.0-30.0) sec D-Dimer 0.97 H (<0.60) mg/L FEU Sodium 138 (137-145) mmol/L Potassium 4.4 (3.5-5.1) mmol/L Chloride 105 (98-107) mmol/L Carbon Dioxide 26 (22-30) mmol/L Anion Gap 7 mmol/L BUN 20 (9-20) mg/dL Creatinine 0.94 (0.66-1.25) mg/dL Est GFR (CKD-EPI)AfAm >90 (>60 ml/min/1.73 sqM) Est GFR (CKD-EPI)NonAf 82 (>60 ml/min/1.73 sqM) Glucose 120 H (74-99) mg/dL Plasma Lactic Acid Nicholas (0.7-2.0) mmol/L Calcium 8.2 L (8.4-10.2) mg/dL C-Reactive Protein 66.9 H (<10.0) mg/L 09/10/20 Range/Units 10:23 WBC (3.8-10.6) k/uL RBC (4.30-5.90) m/uL Hgb (13.0-17.5) gm/dL Hct (39.0-53.0) % MCV (80.0-100.0) fL MCH (25.0-35.0) pg MCHC (31.0-37.0) g/dL RDW (11.5-15.5) % Plt Count (150-450) k/uL MPV Neutrophils % % Lymphocytes % % Monocytes % % Eosinophils % % Basophils % % Neutrophils # (1.3-7.7) k/uL Lymphocytes # (1.0-4.8) k/uL Monocytes # (0-1.0) k/uL Eosinophils # (0-0.7) k/uL Basophils # (0-0.2) k/uL Hyperchromasia Poikilocytosis Anisocytosis PT (9.0-12.0) sec INR (<1.2) APTT (22.0-30.0) sec D-Dimer (<0.60) mg/L FEU Sodium (137-145) mmol/L Potassium (3.5-5.1) mmol/L Chloride (98-107) mmol/L Carbon Dioxide (22-30) mmol/L Anion Gap mmol/L BUN (9-20) mg/dL Creatinine (0.66-1.25) mg/dL Est GFR (CKD-EPI)AfAm (>60 ml/min/1.73 sqM) Est GFR (CKD-EPI)NonAf (>60 ml/min/1.73 sqM) Glucose (74-99) mg/dL Plasma Lactic Acid Nicholas 1.1 (0.7-2.0) mmol/L Calcium (8.4-10.2) mg/dL C-Reactive Protein (<10.0) mg/L Disposition Clinical Impression: COVID-19 Disposition: ADMITTED IP TO THIS HOSP Condition: Serious Referrals: Toño Martin MD [Primary Care Provider] - 1-2 days Decision Time: 11:28
[2020-09-10] MEDS ORDERED: DEXAMETHASONE SOD PHOSPHATE 10 MG/ML 1 ML VIAL IV STA (10:26)
[2020-09-10] MEDS ORDERED: ACETAMINOPHEN TAB 500 MG TAB PO STA (10:33)
[2020-09-10 10:36] LABS: Anisocytosis Slight; Basophils % (A) 0 %; Eosinophils # (A) 0.1 k/uL (0-0.7); Eosinophils % (A) 1 %; HCT 35.6 % (39.0-53.0); HGB 12.9 gm/dL (13.0-17.5); Hyperchromasia Marked; Lymphocytes # (A) 0.7 k/uL (1.0-4.8); Lymphocytes % (A) 11 %; MCH 30.2 pg (25.0-35.0); MCHC 36.4 g/dL (31.0-37.0); MCV 82.9 fL (80.0-100.0); Monocytes # (A) 0.3 k/uL (0-1.0); Monocytes % (A) 4 %; Neutrophils # (A) 5.6 k/uL (1.3-7.7); Neutrophils % (A) 83 %; Platelet Count 134 k/uL (150-450); Poikilocytosis Moderate; RBC 4.29 m/uL (4.30-5.90); RDW 16.1 % (11.5-15.5); WBC 6.7 k/uL (3.8-10.6)
--- NOTE | 2020-09-10 10:50 | XR ---
EXAMINATION TYPE: XR chest 1V portable DATE OF EXAM: 09/10/2020 COMPARISON: 09/23/2017 HISTORY: Cough TECHNIQUE: Single frontal view of the chest is obtained. FINDINGS: A coarsened interstitium with patchy left perihilar infiltrate. There is enlarged. Postope rative changes with no pneumothorax or pleural effusion. Biapical pleural thickening. Hyperinflation suggests COPD. IMPRESSION: Coarse coarsened interstitium correlate for interstitial pneumonitis chronic interstitia l lung disease. Patchy left perihilar infiltrate also noted.
[2020-09-10 10:55] LABS: African American GFR (CKD) >90 (>60 ml/min/1.73 sqM); Anion Gap 7 mmol/L; Blood Urea Nitrogen 20 mg/dL (9-20); C Reactive Protein 66.9 mg/L (<10.0); Calcium 8.2 mg/dL (8.4-10.2); Carbon Dioxide 26 mmol/L (22-30); Chloride 105 mmol/L (98-107); Glucose 120 mg/dL (74-99); Non-African American GFR(CKD) 82 (>60 ml/min/1.73 sqM); Potassium 4.4 mmol/L (3.5-5.1); Sodium 138 mmol/L (137-145)
[2020-09-10 11:00] LABS: INR 0.9 (<1.2); Partial Thromboplastin Time 25.3 sec (22.0-30.0); Prothrombin Time 10.2 sec (9.0-12.0)
[2020-09-10] MEDS ORDERED: AZITHROMYCIN 500 MG in SODIUM CHLORIDE 0.9% 250 ML IVPB STA (11:26)
[2020-09-10] MEDS ORDERED: cefTRIAXone IN SWFI 1,000 MG/10 ML SYRINGE IVP STA (11:26)
[2020-09-10] MEDS ORDERED: NALOXONE 0.4 MG/ML 1 ML VIAL IV PRN (11:28)
[2020-09-10] MEDS ORDERED: ONDANSETRON 4 MG/2 ML VIAL IVP PRN (11:28)
[2020-09-10] MEDS ORDERED: SODIUM CHLORIDE 0.9% 1,000 ML IV SCH (11:30)
[2020-09-10] MEDS ORDERED: ASPIRIN 81 MG PO STA (11:50)
[2020-09-10] MEDS ORDERED: ALBUTEROL HFA INHALER INHALATION PRN (12:43)
--- NOTE | 2020-09-10 12:45 | CT ---
EXAMINATION TYPE: CT angio chest DATE OF EXAM: 09/10/2020 COMPARISON: 09/23/2017 HISTORY: elevated d dimer, positive covid CT DLP: 563.8 mGycm CONTRAST: CT chest with contrast and 3D reconstruction with MIP imaging is performed with IV Contrast, patient injected with 100 mL of Isovue 370. Contrast-enhanced CT of the chest was performed through the course of the pulmonary arteries with chema g and mediastinal window settings submitted. 3D reconstruction with MIP imaging was also performed. PULMONARY ARTERIES: There is poor timing of the contrast bolus resulting in exam limitation. While I do not see a large central embolus I cannot exclude a smaller more distal emboli. LUNGS: Scattered groundglass infiltrates seen throughout both lung johnson. Correlate for pneumonia. N o evidence for atelectasis. No pulmonary nodule or mass is detected. No pleural effusion. MEDIASTINUM: Thoracic aorta is of normal caliber,however, evaluation is limited given timing of the contrast bolus. If there is concern for thoracic aortic pathology consider CATHERINE. Correlate clinicall y . The heart is enlarged. No evidence for mediastinal mass. No mediastinal lymph nodes greater peyton n 1cm. HILAR STRUCTURES: No evidence for mass. No hilar lymph nodes greater than 1 cm. UPPER ABDOMEN: No significant abnormality is seen. IMPRESSION: 1. There is poor timing of the contrast bolus resulting in exam limitation. While I do not see a lar ge central embolus I cannot exclude a smaller more distal emboli. 2. Correlate for Covid 19 pneumonia.
--- NOTE | 2020-09-10 12:58 | P.HPIM ---
History of Present Illness 70-year-old male was diagnosed with covid 19 on 04 of September as per the patient patient didn't have symptoms at that time patient progressively got short of breath with a few episodes of diarrhea body aches. Patient is Tested for Covid because he goes to [employer] and most of the denominational members have awaited. Patient is bit hypoxic and requiring oxygen because of which the was asked to admit the patient to care. Patient height is high risk for worsening symptoms because of which patient is being admitted at this time. CT of the chest was done because of mildly elevated d-dimer of around 0.9. Patient doesn't have any PE but did show some scattered groundglass opacities. Patient does have a high-grade fever Review of Systems PHYSICAL EXAMINATION: GENERAL: The patient is alert and oriented x3, not in any acute distress. Well developed, well nourished. HEENT: Pupils are round and equally reacting to light. EOMI. No scleral icterus. No conjunctival pallor. Normocephalic, atraumatic. No pharyngeal erythema. No thyromegaly. CARDIOVASCULAR: S1 and S2 present. No murmurs, rubs, or gallops. PULMONARY: Chest is clear to auscultation, no wheezing or crackles. ABDOMEN: Soft, nontender, nondistended, normoactive bowel sounds. No palpable organomegaly. MUSCULOSKELETAL: No joint swelling or deformity. EXTREMITIES: No cyanosis, clubbing, or pedal edema. NEUROLOGICAL: Gross neurological examination did not reveal any focal deficits. SKIN: No rashes. Past Medical History Past Medical History: Coronary Artery Disease (CAD), Cancer, Hyperlipidemia, Hypertension, Sleep Apnea/CPAP/BIPAP Additional Past Medical History / Comment(s): basal cell skin cancer, History of Any Multi-Drug Resistant Organisms: None Reported Past Surgical History: Coronary Bypass/CABG, Heart Catheterization, Orthopedic Surgery Additional Past Surgical History / Comment(s): basal cell skin cancer removed, left wrist fx with repair Past Anesthesia/Blood Transfusion Reactions: No Reported Reaction Past Psychological History: Anxiety Smoking Status: Never smoker Past Alcohol Use History: Rare Past Drug Use History: None Reported - Past Family History Sister(s) Family Medical History: Blood Disorder, Deep Vein Thrombosis (DVT) Medications and Allergies Home Medications Medication Instructions Recorded Confirmed Type Aspirin EC [Ecotrin Low Dose] 81 mg PO DAILY 09/23/17 09/10/20 History Atorvastatin Calcium [Lipitor] 80 mg PO HS 09/23/17 09/10/20 History Lisinopril [Prinivil] 10 mg PO DAILY 09/23/17 09/10/20 History Sertraline HCl [Zoloft] 150 mg PO DAILY 09/23/17 09/10/20 History atenoloL [Tenormin] 25 mg PO DAILY 09/23/17 09/10/20 History Allergies Allergy/AdvReac Type Severity Reaction Status Date / Time No Known Allergies Allergy Verified 09/10/20 10:52 Physical Exam Vitals: Vital Signs Temp Pulse Resp BP Pulse Ox 09/10/20 11:27 81 20 129/67 96 09/10/20 10:32 103.1 F H 87 20 136/70 95 09/10/20 10:10 98 09/10/20 10:09 85 L 09/10/20 09:01 100.8 F H 91 18 104/66 93 L Intake and Output 09/09/20 09/10/20 09/10/20 22:59 06:59 14:59 Other: Weight 117.934 kg PHYSICAL EXAMINATION: GENERAL: The patient is alert and oriented x3, not in any acute distress. Well developed, well nourished. HEENT: Pupils are round and equally reacting to light. EOMI. No scleral icterus. No conjunctival pallor. Normocephalic, atraumatic. No pharyngeal erythema. No thyromegaly. CARDIOVASCULAR: S1 and S2 present. No murmurs, rubs, or gallops. PULMONARY: Chest is clear to auscultation, no wheezing or crackles. ABDOMEN: Soft, nontender, nondistended, normoactive bowel sounds. No palpable organomegaly. MUSCULOSKELETAL: No joint swelling or deformity. EXTREMITIES: No cyanosis, clubbing, or pedal edema. NEUROLOGICAL: Gross neurological examination did not reveal any focal deficits. SKIN: No rashes. Results CBC & Chem 7: 09/10/20 10:23 09/10/20 10:23 Labs: Abnormal Lab Results - Last 24 Hours (Table) 09/10/20 09/10/20 09/10/20 Range/Units 10:23 10:23 10:23 RBC 4.29 L (4.30-5.90) m/uL Hgb 12.9 L (13.0-17.5) gm/dL Hct 35.6 L (39.0-53.0) % RDW 16.1 H (11.5-15.5) % Plt Count 134 L (150-450) k/uL Lymphocytes # 0.7 L (1.0-4.8) k/uL D-Dimer 0.97 H (<0.60) mg/L FEU Glucose 120 H (74-99) mg/dL Calcium 8.2 L (8.4-10.2) mg/dL Troponin I (0.000-0.034) ng/mL C-Reactive Protein 66.9 H (<10.0) mg/L 09/10/20 Range/Units 10:23 RBC (4.30-5.90) m/uL Hgb (13.0-17.5) gm/dL Hct (39.0-53.0) % RDW (11.5-15.5) % Plt Count (150-450) k/uL Lymphocytes # (1.0-4.8) k/uL D-Dimer (<0.60) mg/L FEU Glucose (74-99) mg/dL Calcium (8.4-10.2) mg/dL Troponin I 0.041 H* (0.000-0.034) ng/mL C-Reactive Protein (<10.0) mg/L Assessment and Plan Plan: -Acute hypoxic respiratory failure secondary to Covid 19. Patient will be started on steroids Covid vitamins. -Mild elevation of troponin secondary to hypoxemia we'll repeat the tumor sets of troponins -Hypertension and patient will be resumed on atenolol hold off on the lisinopril will be started pending on the blood pressure during this hospitalization -Depression -Hyperlipidemia DVT prophylaxis Lovenox, GI prophylaxis Protonix
--- NOTE | 2020-09-10 20:14 | P.CNPUL ---
History of Present Illness Consult date: 09/10/20 Reason for consult: dyspnea, cough, hypoxemia, pneumonia Chief complaint: Progressive increased shortness of breath cough History of present illness: This is a pleasant 77-year-old morbidly obese male with prior medical history of ongoing significant smoking patient has history of hypertension and hypertensive cardiovascular disease obstructive sleep apnea, patient has multiple family members tested positive however initially he was asymptomatic but in the last 4 days and let increase cough shortness of breath and breathing difficulty came into the hospital for further evaluation, patient currently on 2 L nasal cannula oxygen saturation are in low to mid 90s, get short of breath cannot complete sentences, chest x-ray significant for bilateral coarse interstitial infiltrate, computed tomography scan of the chest is suboptimal however no large pulmonary embolism is seen bilateral groundglass attenuation interstitial infiltrate however identified, patient also have elevated d-dimer with elevated LDH consistent with ongoing inflammatory response Review of Systems All systems: negative Past Medical History Past Medical History: Coronary Artery Disease (CAD), Cancer, Hyperlipidemia, Hypertension, Sleep Apnea/CPAP/BIPAP Additional Past Medical History / Comment(s): basal cell skin cancer cpap at night History of Any Multi-Drug Resistant Organisms: None Reported Past Surgical History: Coronary Bypass/CABG, Heart Catheterization, Orthopedic Surgery Additional Past Surgical History / Comment(s): basal cell skin cancer removed, left wrist fx with repair Past Anesthesia/Blood Transfusion Reactions: No Reported Reaction Past Psychological History: Anxiety Smoking Status: Former smoker Past Alcohol Use History: Rare Additional Past Alcohol Use History / Comment(s): had smoked 40 years <1ppd quit for 3 years now smokes approx 10 cigaretts per day. Past Drug Use History: None Reported - Past Family History Sister(s) Family Medical History: Blood Disorder, Deep Vein Thrombosis (DVT) Medications and Allergies Home Medications Medication Instructions Recorded Confirmed Type Aspirin EC [Ecotrin Low Dose] 81 mg PO DAILY 09/23/17 09/10/20 History Atorvastatin Calcium [Lipitor] 80 mg PO HS 09/23/17 09/10/20 History Lisinopril [Prinivil] 10 mg PO DAILY 09/23/17 09/10/20 History Sertraline HCl [Zoloft] 150 mg PO DAILY 09/23/17 09/10/20 History atenoloL [Tenormin] 25 mg PO DAILY 09/23/17 09/10/20 History Allergies Allergy/AdvReac Type Severity Reaction Status Date / Time No Known Allergies Allergy Verified 09/10/20 10:52 Physical Exam Vitals: Vital Signs Temp Pulse Pulse Resp BP BP Pulse Ox 09/10/20 17:48 97.6 F 53 L 18 107/68 98 09/10/20 15:13 78 20 112/61 97 09/10/20 14:33 73 18 116/64 96 09/10/20 13:38 98.2 F 69 18 127/66 96 09/10/20 11:27 81 20 129/67 96 09/10/20 10:32 103.1 F H 87 20 136/70 95 09/10/20 10:10 98 09/10/20 10:09 85 L 09/10/20 09:01 100.8 F H 91 18 104/66 93 L Intake and Output 09/10/20 09/10/20 09/10/20 06:59 14:59 22:59 Other: Weight 117.934 kg 117.934 kg - Constitutional General appearance: disheveled, mild distress, morbidly obese - EENT Eyes: EOMI, PERRLA Ears: bilateral: normal - Neck Neck: normal ROM Carotids: bilateral: upstroke normal Thyroid: bilateral: normal size - Respiratory Respiratory: bilateral: diminished - Cardiovascular Rhythm: regular Heart sounds: normal: S1, S2 - Gastrointestinal General gastrointestinal: distended, normal bowel sounds - Integumentary Integumentary: normal turgor - Neurologic Neurologic: CNII-XII intact - Musculoskeletal Musculoskeletal: gait normal, generalized weakness, strength equal bilaterally - Psychiatric Psychiatric: A&O x's 3, appropriate affect, intact judgment & insight Results - Laboratory Findings CBC and BMP: 09/10/20 10:23 09/10/20 10:23 PT/INR, D-dimer PT 10.2 sec (9.0-12.0) 09/10/20 10:23 INR 0.9 (<1.2) 09/10/20 10:23 D-Dimer 0.97 mg/L FEU (<0.60) H 09/10/20 10:23 Abnormal lab findings: Abnormal Labs 09/10/20 09/10/20 09/10/20 10:23 10:23 10:23 RBC 4.29 L Hgb 12.9 L Hct 35.6 L RDW 16.1 H Plt Count 134 L Lymphocytes # 0.7 L D-Dimer 0.97 H Glucose 120 H Calcium 8.2 L Lactate Dehydrogenase Troponin I C-Reactive Protein 66.9 H 09/10/20 09/10/20 09/10/20 10:23 10:23 13:35 RBC Hgb Hct RDW Plt Count Lymphocytes # D-Dimer Glucose Calcium Lactate Dehydrogenase 1048 H Troponin I 0.041 H* 0.045 H* C-Reactive Protein - Diagnostic Findings Chest x-ray: report reviewed, image reviewed CT scan - chest: report reviewed, image reviewed (Finding as noted above) Assessment and Plan Assessment: Acute hypoxic respiratory failure Bilateral acute covid 19 pneumonia Obstructive sleep apnea Hypertension hypertensive cardiovascular disease Depression Dyslipidemia Morbid obesity Plan: IV REMdesivir Steroids in the form of Decadron Deep breathing exercise incentive spirometry Supplemental oxygen Monitor clinical course closely further recommendations pending plan of care as per clinical response of the patient Time with Patient: Greater than 30
[2020-09-10] MEDS: ASCORBIC ACID 500 MG TAB PO SCH (20:54)
[2020-09-10] MEDS ORDERED: ATORVASTATIN 80 MG TAB PO SCH (21:00)
[2020-09-10] MEDS ORDERED: REMDESIVIR 200 MG in SODIUM CHLORIDE 0.9% 250 ML IVPB ONE (21:00)
[2020-09-11 01:35] LABS: Ferritin 513.9 ng/mL (22.0-322.0)
[2020-09-11] MEDS ORDERED: atenoloL 25 MG TAB PO SCH (09:00)
[2020-09-11] MEDS ORDERED: ENOXAPARIN 40 MG/0.4 ML SYRINGE SQ SCH (09:00)
[2020-09-11] MEDS ORDERED: PANTOPRAZOLE 40 MG/10 ML VIAL IV SCH (09:00)
[2020-09-11] MEDS ORDERED: ZINC SULFATE 220 MG CAP PO SCH (09:00)
[2020-09-11] MEDS ORDERED: dexAMETHasone 2 MG TAB PO SCH (09:00)
[2020-09-11] MEDS ORDERED: ASPIRIN 81 MG PO SCH (09:00)
[2020-09-11] MEDS ORDERED: SERTRALINE 50 MG TAB PO SCH (09:00)
[2020-09-11] MEDS: ASCORBIC ACID 500 MG TAB PO SCH (09:06)
[2020-09-11 09:14] VITALS: RESP 16; TEMP 97.8
[2020-09-11 12:08] VITALS: BP 94/56; PULSE 75
--- NOTE | 2020-09-11 14:23 | P.DS ---
Providers Date of admission: 09/10/20 11:28 Attending physician: Alma Shelley Consults: 09/10/20 12:45 Consult Physician Routine Consulting Provider: Trever Johnston Consult Reason/Comments: Hypoxia and covid Do you want consulting provider notified?: Yes Primary care physician: Mario Schmitz [facility] Course: 70-year-old male was diagnosed with covid 19 on 04 of September as per the patient patient didn't have symptoms at that time patient progressively got short of breath with a few episodes of diarrhea body aches. Patient is Tested for Covid because he goes to [employer] and most of the [employer] members have awaited. Patient is bit hypoxic and requiring oxygen because of which the was asked to admit the patient to care. Patient height is high risk for worsening symptoms because of which patient is being admitted at this time. CT of the chest was done because of mildly elevated d-dimer of around 0.9. Patient doesn't have any PE but did show some scattered groundglass opacities. Patient does have a high-grade fever. 09/11/2020 Patient did receive Remdesivir, clinically doing well still be tired not requiring any oxygen. Although there is a chance it can get worse because of which I instructed the patient to come back to the hospital if needed if he gets short of breath. Patient is being discharged today. Patient doesn't have any fever since yesterday afternoon. Patient will be discharged on Decadron, multivitamins. PHYSICAL EXAMINATION: GENERAL: The patient is alert and oriented x3, not in any acute distress. Well developed, well nourished. HEENT: Pupils are round and equally reacting to light. EOMI. No scleral icterus. No conjunctival pallor. Normocephalic, atraumatic. No pharyngeal erythema. No thyromegaly. CARDIOVASCULAR: S1 and S2 present. No murmurs, rubs, or gallops. PULMONARY: Chest is clear to auscultation, no wheezing or crackles. ABDOMEN: Soft, nontender, nondistended, normoactive bowel sounds. No palpable organomegaly. MUSCULOSKELETAL: No joint swelling or deformity. EXTREMITIES: No cyanosis, clubbing, or pedal edema. NEUROLOGICAL: Gross neurological examination did not reveal any focal deficits. SKIN: No rashes. Assessment and Plan Plan: -Acute hypoxic respiratory failure secondary to Covid 19, improved not requiring oxygen today. Patient will be discharged on steroids Covid vitamins. -Mild elevation of troponin secondary to hypoxemia repeat troponins are stable at 100 down the troponins are 0.04, followed by 0.045 followed by 0.020 and is not consistent with acute myocardial infarction -Hypertension and patient will be resumed on atenolol hold off on the lisinopril will be started pending on the blood pressure during this hospitalization -Depression -Hyperlipidemia DVT prophylaxis Lovenox, GI prophylaxis Protonix Patient Condition at Discharge: Serious Plan - Discharge Summary Discharge Rx Participant: Yes New Discharge Prescriptions: New dexAMETHasone [Hexadrol] 6 mg PO DAILY #7 tab Zinc Sulfate [Orazinc] 220 mg PO DAILY #20 cap Albuterol Inhaler [Ventolin Hfa Inhaler] 2 puff INHALATION RT-Q6H PRN #1 inhaler PRN Reason: Shortness Of Breath Or Wheezing Ascorbic Acid [Vitamin C] 500 mg PO BID #30 tab Continue Atorvastatin Calcium [Lipitor] 80 mg PO HS Sertraline HCl [Zoloft] 150 mg PO DAILY atenoloL [Tenormin] 25 mg PO DAILY Aspirin EC [Ecotrin Low Dose] 81 mg PO DAILY Discontinued Lisinopril [Prinivil] 10 mg PO DAILY Discharge Medication List Aspirin EC [Ecotrin Low Dose] 81 mg PO DAILY 09/23/17 [History] Atorvastatin Calcium [Lipitor] 80 mg PO HS 09/23/17 [History] Sertraline HCl [Zoloft] 150 mg PO DAILY 09/23/17 [History] atenoloL [Tenormin] 25 mg PO DAILY 09/23/17 [History] Albuterol Inhaler [Ventolin Hfa Inhaler] 2 puff INHALATION RT-Q6H PRN #1 inhaler 09/11/20 [Rx] Ascorbic Acid [Vitamin C] 500 mg PO BID #30 tab 09/11/20 [Rx] Zinc Sulfate [Orazinc] 220 mg PO DAILY #20 cap 09/11/20 [Rx] dexAMETHasone [Hexadrol] 6 mg PO DAILY #7 tab 09/11/20 [Rx] Follow up Appointment(s)/Referral(s): Toño Martin MD [Primary Care Provider] - 3 Days (pt to call office ) Discharge Disposition: HOME SELF-CARE
--- NOTE | 2020-09-11 17:06 | P.PN ---
Subjective Progress Note Date: 09/11/20 Principal diagnosis: Acute hypoxic respiratory failure Bilateral acute covid 19 pneumonia Obstructive sleep apnea Hypertension hypertensive cardiovascular disease Depression Dyslipidemia Morbid obesity 09/11/2020, patient seen eval examined sitting upright in chair patient has been dressed up and ready to go home, patient has been discharged by the primary service, remains afebrile symptomatically slightly improved now Ammann cultures are negative, oxygen saturation 91% on room air, patient has received 2 doses of IV REMdesivir, will follow-up in next 24-48 hours on telemetry medicine This is a pleasant 77-year-old morbidly obese male with prior medical history of ongoing significant smoking patient has history of hypertension and hypertensive cardiovascular disease obstructive sleep apnea, patient has multiple family members tested positive however initially he was asymptomatic but in the last 4 days and let increase cough shortness of breath and breathing difficulty came into the hospital for further evaluation, patient currently on 2 L nasal cannula oxygen saturation are in low to mid 90s, get short of breath cannot complete sentences, chest x-ray significant for bilateral coarse interstitial infiltrate, computed tomography scan of the chest is suboptimal however no large pulmonary embolism is seen bilateral groundglass attenuation interstitial infiltrate however identified, patient also have elevated d-dimer with elevated LDH consistent with ongoing inflammatory response Objective - Vital Signs Vital signs: Vital Signs Temp 97.8 F 09/11/20 08:00 Pulse 75 09/11/20 12:00 Resp 16 09/11/20 12:00 BP 94/56 09/11/20 12:00 Pulse Ox 91 L 09/11/20 12:00 Intake & Output 09/10/20 09/11/20 09/11/20 18:59 06:59 18:59 Intake Total 250 418 Output Total 250 300 Balance 0 118 Weight 117.934 kg 118.2 kg Intake: Intake, IV Titration 250 Amount Remdesivir 200 mg In 250 Sodium Chloride 0.9% 250 ml @ 250 mls/hr IVPB ONCE ONE Rx#:[id number] Oral 418 Output: Urine 250 300 Other: Voiding Method Urinal Urinal # Voids 2 - Exam - Constitutional General appearance: disheveled, mild distress, morbidly obese - EENT Eyes: EOMI, PERRLA Ears: bilateral: normal - Neck Neck: normal ROM Carotids: bilateral: upstroke normal Thyroid: bilateral: normal size - Respiratory Respiratory: bilateral: diminished - Cardiovascular Rhythm: regular Heart sounds: normal: S1, S2 - Gastrointestinal General gastrointestinal: distended, normal bowel sounds - Integumentary Integumentary: normal turgor - Neurologic Neurologic: CNII-XII intact - Musculoskeletal Musculoskeletal: gait normal, generalized weakness, strength equal bilaterally - Psychiatric Psychiatric: A&O x's 3, appropriate affect, intact judgment & insight - Labs CBC & Chem 7: 09/10/20 10:23 09/10/20 10:23 Labs: Abnormal Lab Results - Last 24 Hours (Table) 09/10/20 Range/Units 10:23 Ferritin 513.9 H (22.0-322.0) ng/mL Microbiology - Last 24 Hours (Table) 09/10/20 13:05 Blood Culture - Preliminary Blood No Growth after 24 hours 09/10/20 13:05 Blood Culture - Preliminary Blood No Growth after 24 hours Assessment and Plan Assessment: Acute hypoxic respiratory failure Bilateral acute covid 19 pneumonia Obstructive sleep apnea Hypertension hypertensive cardiovascular disease Depression Dyslipidemia Morbid obesity Plan: Follow-up wire telemetry medicine in office Continue Steroids in the form of oral Decadron Deep breathing exercise incentive spirometry Monitor clinical course closely further recommendations pending plan of care as per clinical response of the patient Time with Patient: Greater than 30
[2020-09-11] MEDS ORDERED: REMDESIVIR 100 MG in SODIUM CHLORIDE 0.9% 250 ML IVPB SCH (21:00)
--- NOTE | 2020-09-24 08:54 | CDI ---
Documentation Clarification Form Date: 09/24/20 From: Traci Jacob Phone: Admit Date: 09/10/20 Discharge Date: 09/11/20 Patient Name: Felipe Shelley Visit Number: [id number] ATTENTION: The Clinical Documentation Specialists (CDI) and [facility] Coding Staff appreciate your assistance in clarifying documentation. Please respond to the clarification below the line at the bottom and electronically sign. The CDI & [facility] Coding staff will review the response and follow-up if needed. Please note: Queries are made part of the Legal Health Record. If you have any questions, please contact the author of this message via ITS. Dear Signs and symptoms of, as documented in: ___ Cough ___ Respiratory distress X Diarrhea ___ Respiratory failure ___ Fever ___ Sore throat ___ Lethargy ___ Vomiting ___ Loss of taste ___ Weight loss ___ Loss of smell ___ Other: Clinical findings and/or treatments: Risk factors as documented in: ___ Asthma ___ Immunocompromised due to: ___ COPD ___ Recent travel to: ___ Diabetes ___ Tobacco use X Hypertension ___ Other: COVID-19 is documented in the medical record. Can this diagnosis be further specified and/or can any associated diagnosis(es) be documented, such as COVID- 19 with: ___ GI manifestations (please specify): ___ Other (please specify) ___ Unable to determine Diarrhea is due to coivd 19 and this query is not necessary MTDD
== END 2020-09-11 16:55 | disposition home or self-care (01) | DRG 177 ==
LOC: EC 08:44 → 4SSUR 11:28 → 3SCARD 12:50
PROVIDERS: ADMIT Internal Medicine; ATTEND Internal Medicine
PROC: XW033E5 Introduction of Remdesivir Anti-infective into Peripheral Vein, Percutaneous Approach, New Technology Group 5 (ICD-10-PCS; principal; 2020-09-10)
DX: U07.1 COVID-19 (principal); J12.82 Pneumonia due to coronavirus disease 2019; J96.01 Acute respiratory failure with hypoxia; A08.39 Other viral enteritis; E66.01 Morbid (severe) obesity due to excess calories; I11.9 Hypertensive heart disease without heart failure; I25.10 Atherosclerotic heart disease of native coronary artery without angina pectoris; G47.33 Obstructive sleep apnea (adult) (pediatric); Z68.36 Body mass index [BMI] 36.0-36.9, adult; E78.5 Hyperlipidemia, unspecified; F41.9 Anxiety disorder, unspecified; F32.9 Major depressive disorder, single episode, unspecified; R77.8 Other specified abnormalities of plasma proteins; Z79.82 Long term (current) use of aspirin; Z79.899 Other long term (current) drug therapy; Z85.828 Personal history of other malignant neoplasm of skin; Z98.890 Other specified postprocedural states; Z95.1 Presence of aortocoronary bypass graft; Z87.81 Personal history of (healed) traumatic fracture; Z87.891 Personal history of nicotine dependence; Z83.2 Family history of diseases of the blood and blood-forming organs and certain disorders involving the immune mechanism
CPT/HCPCS: 36415; 71045; 71275; 80048; 82728; 83605; 83615; 84145; 84484; 85025; 85379; 85610; 85730; 86140; 87040; 93005; 96365; 99285

== ENCOUNTER 2020-09-17 07:33 | Inpatient (IN) | payer MEDICARE, OTHER ==
[2020-09-17] MEDS ORDERED: IPRATROPIUM 0.5 MG/2.5 ML NEBU INHALATION STA (07:39)
[2020-09-17] MEDS ORDERED: ALBUTEROL NEBULIZED 2.5 MG/3 ML INHALATION STA (07:39)
[2020-09-17 07:52] LABS: Glucose,Whole Blood 322 mg/dL (75-99)
[2020-09-17] MEDS ORDERED: TIOTROPIUM 2.5 MCG INHALER INHALATION ONE (08:00)
[2020-09-17] MEDS ORDERED: ALBUTEROL HFA INHALER INHALATION ONE (08:00)
--- NOTE | 2020-09-17 08:07 | XR ---
EXAMINATION TYPE: XR chest 1V portable DATE OF EXAM: 09/17/2020 Comparison: 09/10/2020 Clinical History: 70-year-old male Short of breath Findings: Median sternotomy wires are present. Heart borderline enlarged. Aeration of the right base is improve d. Some patchy density remains at the left midlung. No pleural effusion. Impression: Aeration is improved on the right. Some mild patchy infiltrate remains at the left midlung.
--- NOTE | 2020-09-17 08:11 | ED ---
General Adult HPI - General Chief complaint: Shortness of Breath Stated complaint: respiratory distress Time Seen by Provider: 09/17/20 07:33 Source: patient, EMS, RN notes reviewed, old records reviewed Mode of arrival: EMS Limitations: no limitations - History of Present Illness Initial comments: This is a 70-year-old male with past medical history significant for cardiac disease but specifically what was not indicated by EMS. Patient was recently admitted for the COVID 19 infection and released. Patient this morning call the [place] room and told the hospital because he couldn't breathe. When paramedics arrived they eventually placed him on CPAP and his oxygenation was still in the low 80s. Patient was breathing some 35 times a minute. Patient is unable to give any further history at this time because he is having such a hard time breathing. - Related Data Home Medications Medication Instructions Recorded Confirmed Aspirin EC [Ecotrin Low Dose] 81 mg PO DAILY 09/23/17 09/17/20 Atorvastatin Calcium [Lipitor] 80 mg PO HS 09/23/17 09/17/20 Sertraline HCl [Zoloft] 150 mg PO DAILY 09/23/17 09/17/20 atenoloL [Tenormin] 25 mg PO DAILY 09/23/17 09/17/20 Previous Rx's Medication Instructions Recorded Albuterol Inhaler [Ventolin Hfa 2 puff INHALATION RT-Q6H PRN #1 09/11/20 Inhaler] inhaler Ascorbic Acid [Vitamin C] 500 mg PO BID #30 tab 09/11/20 Zinc Sulfate [Orazinc] 220 mg PO DAILY #20 cap 09/11/20 dexAMETHasone ORAL [Hexadrol] 6 mg PO DAILY #7 tab 09/11/20 Allergies Allergy/AdvReac Type Severity Reaction Status Date / Time No Known Allergies Allergy Verified 09/17/20 08:53 Review of Systems ROS Statement: Those systems with pertinent positive or pertinent negative responses have been documented in the HPI. ROS Other: All systems not noted in ROS Statement are negative. Past Medical History Past Medical History: Coronary Artery Disease (CAD), Cancer, Hyperlipidemia, Hypertension, Sleep Apnea/CPAP/BIPAP Additional Past Medical History / Comment(s): basal cell skin cancer cpap at night History of Any Multi-Drug Resistant Organisms: None Reported Past Surgical History: Coronary Bypass/CABG, Heart Catheterization, Orthopedic Surgery Additional Past Surgical History / Comment(s): basal cell skin cancer removed, left wrist fx with repair Past Anesthesia/Blood Transfusion Reactions: No Reported Reaction Past Psychological History: Anxiety Smoking Status: Former smoker Past Alcohol Use History: Rare Past Drug Use History: None Reported - Past Family History Sister(s) Family Medical History: Blood Disorder, Deep Vein Thrombosis (DVT) General Exam - General Exam Comments Initial Comments: GENERAL: Patient is well-developed and well-nourished. Patient is nontoxic and well- hydrated and is in severe distress. ENT: Neck is soft and supple. No significant lymphadenopathy is noted. Oropharynx is clear. Moist mucous membranes. Neck has full range of motion without eliciting any pain. EYES: The sclera were anicteric and conjunctiva were pink and moist. Extraocular movements were intact and pupils were equal round and reactive to light. Eyelids were unremarkable. PULMONARY: Patient is moving good air however he has a respiratory rate of 36. CARDIOVASCULAR: Patient is tachycardic at 130 beats a minute. ABDOMEN: Soft and nontender with normal bowel sounds. SKIN: Skin is clear with no lesions or rashes and otherwise unremarkable. NEUROLOGIC: Patient is alert and oriented x3. Cranial nerves II through XII are grossly intact. Motor and sensory are also intact. Normal speech, volume and content. Symmetrical smile. MUSCULOSKELETAL: Normal extremities with adequate strength and full range of motion. No lower extremity swelling or edema. No calf tenderness. LYMPHATICS: No significant lymphadenopathy is noted PSYCHIATRIC: Normal psychiatric evaluation. Limitations: no limitations Course Vital Signs 09/17/20 09/17/20 09/17/20 07:35 07:43 07:50 Temperature 97.4 F L Pulse Rate 125 H 110 H Respiratory 30 H 32 H 30 H Rate Blood Pressure 113/85 O2 Sat by Pulse 99 Oximetry 09/17/20 09/17/20 09/17/20 07:55 08:23 09:21 Temperature Pulse Rate 105 H 89 90 Respiratory 18 27 H 25 H Rate Blood Pressure 111/83 111/71 105/69 O2 Sat by Pulse 100 100 100 Oximetry 09/17/20 09/17/20 09/17/20 10:03 11:00 12:00 Temperature Pulse Rate 89 73 77 Respiratory 24 23 21 Rate Blood Pressure 99/72 99/72 88/67 O2 Sat by Pulse 100 100 100 Oximetry 09/17/20 12:22 Temperature Pulse Rate 74 Respiratory 24 Rate Blood Pressure 102/64 O2 Sat by Pulse 99 Oximetry Medical Decision Making - Medical Decision Making EKG shows sinus tachycardia at 130 bpm NC interval is 142 QRS is 148 QTC is 348 QTC is 512 per patient has a right bundle rik block. Patient's EKG shows significant ST segment depression in precordial leads V4 through V6 and T-wave inversion in inferior leads. Once the patient was placed on BiPAP and his oxygenation was 100% was feeling considerably better. A repeat EKG was done at this time. EKG showed normal sinus rhythm at 97 bpm NC interval 158 QRSs on a 42 QT intervals 406 QTC is 5:15. Patient has a right bundle branch block the ST segment depression in precordial leads V3 through V6 is improved but still apparent Chest x-ray shows an infiltrate but much improved from the previous chest x-ray. Patient on BiPAP remains of 100% oxygenation. Patient's lactic is elevated secondary to hypoxia CAT scan shows bilateral pulmonary embolisms with some slight right heart strain I started the patient on high-dose heparin and I continued on the floor. [facility] I admitted the patient I wrote admitting orders I consult the pulmonary and consulted vascular. - Lab Data Result diagrams: 09/17/20 09:50 09/17/20 07:45 Lab Results 09/17/20 09/17/20 09/17/20 Range/Units 07:45 07:45 07:45 WBC (3.8-10.6) k/uL RBC (4.30-5.90) m/uL Hgb (13.0-17.5) gm/dL Hct (39.0-53.0) % MCV (80.0-100.0) fL MCH (25.0-35.0) pg MCHC (31.0-37.0) g/dL RDW (11.5-15.5) % Plt Count (150-450) k/uL MPV Neutrophils % (Manual) % Band Neuts % (Manual) % Lymphocytes % (Manual) % Monocytes % (Manual) % Eosinophils % (Manual) % Metamyelocytes % % Myelocytes % % Neutrophils # (Manual) (1.3-7.7) k/uL Lymphocytes # (Manual) (1.0-4.8) k/uL Monocytes # (Manual) (0-1.0) k/uL Eosinophils # (Manual) (0-0.7) k/uL Metamyelocytes # (Man) (0) k/uL Myelocytes # (Manual) (0) k/uL Nucleated RBCs (0-0) /100 WBC Manual Slide Review Hyperchromasia Poikilocytosis Anisocytosis Spherocytes PT (9.0-12.0) sec INR (<1.2) APTT (22.0-30.0) sec D-Dimer (<0.60) mg/L FEU Sodium 137 (137-145) mmol/L Potassium 4.9 (3.5-5.1) mmol/L Chloride 107 (98-107) mmol/L Carbon Dioxide 14 L (22-30) mmol/L Anion Gap 16 mmol/L BUN 24 H (9-20) mg/dL Creatinine 1.10 (0.66-1.25) mg/dL Est GFR (CKD-EPI)AfAm 78 (>60 ml/min/1.73 sqM) Est GFR (CKD-EPI)NonAf 67 (>60 ml/min/1.73 sqM) Glucose 292 H (74-99) mg/dL POC Glucose (mg/dL) (75-99) mg/dL POC Glu Photo Studio Assistant ID Lactic Ac Sepsis Rflx Plasma Lactic Acid Nicholas 8.6 H* (0.7-2.0) mmol/L Calcium 8.1 L (8.4-10.2) mg/dL Magnesium 2.4 H (1.6-2.3) mg/dL Total Bilirubin 1.2 (0.2-1.3) mg/dL AST 49 (17-59) U/L ALT 54 H (4-49) U/L Alkaline Phosphatase 82 (38-126) U/L Troponin I <0.012 (0.000-0.034) ng/mL Total Protein 5.8 L (6.3-8.2) g/dL Albumin 3.2 L (3.5-5.0) g/dL 09/17/20 09/17/20 09/17/20 Range/Units 07:51 08:52 09:50 WBC 20.9 H (3.8-10.6) k/uL RBC 4.96 (4.30-5.90) m/uL Hgb 14.4 (13.0-17.5) gm/dL Hct 41.4 (39.0-53.0) % MCV 83.3 (80.0-100.0) fL MCH 28.9 (25.0-35.0) pg MCHC 34.7 (31.0-37.0) g/dL RDW 17.3 H (11.5-15.5) % Plt Count 253 (150-450) k/uL MPV 8.7 Neutrophils % (Manual) 83 % Band Neuts % (Manual) 2 % Lymphocytes % (Manual) 6 % Monocytes % (Manual) 7 % Eosinophils % (Manual) 1 % Metamyelocytes % 2 % Myelocytes % 1 % Neutrophils # (Manual) 17.70 H (1.3-7.7) k/uL Lymphocytes # (Manual) 1.25 (1.0-4.8) k/uL Monocytes # (Manual) 1.46 H (0-1.0) k/uL Eosinophils # (Manual) 0.21 (0-0.7) k/uL Metamyelocytes # (Man) 0.42 H (0) k/uL Myelocytes # (Manual) 0.21 H (0) k/uL Nucleated RBCs 0 (0-0) /100 WBC Manual Slide Review Performed Hyperchromasia Slight Poikilocytosis Moderate Anisocytosis Slight Spherocytes Present PT (9.0-12.0) sec INR (<1.2) APTT (22.0-30.0) sec D-Dimer (<0.60) mg/L FEU Sodium (137-145) mmol/L Potassium (3.5-5.1) mmol/L Chloride (98-107) mmol/L Carbon Dioxide (22-30) mmol/L Anion Gap mmol/L BUN (9-20) mg/dL Creatinine (0.66-1.25) mg/dL Est GFR (CKD-EPI)AfAm (>60 ml/min/1.73 sqM) Est GFR (CKD-EPI)NonAf (>60 ml/min/1.73 sqM) Glucose (74-99) mg/dL POC Glucose (mg/dL) 322 H (75-99) mg/dL POC Glu Photo Studio Assistant ID Paige Chou Lactic Ac Sepsis Rflx Y Plasma Lactic Acid Nicholas (0.7-2.0) mmol/L Calcium (8.4-10.2) mg/dL Magnesium (1.6-2.3) mg/dL Total Bilirubin (0.2-1.3) mg/dL AST (17-59) U/L ALT (4-49) U/L Alkaline Phosphatase (38-126) U/L Troponin I (0.000-0.034) ng/mL Total Protein (6.3-8.2) g/dL Albumin (3.5-5.0) g/dL 09/17/20 Range/Units 09:50 WBC (3.8-10.6) k/uL RBC (4.30-5.90) m/uL Hgb (13.0-17.5) gm/dL Hct (39.0-53.0) % MCV (80.0-100.0) fL MCH (25.0-35.0) pg MCHC (31.0-37.0) g/dL RDW (11.5-15.5) % Plt Count (150-450) k/uL MPV Neutrophils % (Manual) % Band Neuts % (Manual) % Lymphocytes % (Manual) % Monocytes % (Manual) % Eosinophils % (Manual) % Metamyelocytes % % Myelocytes % % Neutrophils # (Manual) (1.3-7.7) k/uL Lymphocytes # (Manual) (1.0-4.8) k/uL Monocytes # (Manual) (0-1.0) k/uL Eosinophils # (Manual) (0-0.7) k/uL Metamyelocytes # (Man) (0) k/uL Myelocytes # (Manual) (0) k/uL Nucleated RBCs (0-0) /100 WBC Manual Slide Review Hyperchromasia Poikilocytosis Anisocytosis Spherocytes PT 10.7 (9.0-12.0) sec INR 1.0 (<1.2) APTT 22.6 (22.0-30.0) sec D-Dimer 23.28 H (<0.60) mg/L FEU Sodium (137-145) mmol/L Potassium (3.5-5.1) mmol/L Chloride (98-107) mmol/L Carbon Dioxide (22-30) mmol/L Anion Gap mmol/L BUN (9-20) mg/dL Creatinine (0.66-1.25) mg/dL Est GFR (CKD-EPI)AfAm (>60 ml/min/1.73 sqM) Est GFR (CKD-EPI)NonAf (>60 ml/min/1.73 sqM) Glucose (74-99) mg/dL POC Glucose (mg/dL) (75-99) mg/dL POC Glu Photo Studio Assistant ID Lactic Ac Sepsis Rflx Plasma Lactic Acid Nicholas (0.7-2.0) mmol/L Calcium (8.4-10.2) mg/dL Magnesium (1.6-2.3) mg/dL Total Bilirubin (0.2-1.3) mg/dL AST (17-59) U/L ALT (4-49) U/L Alkaline Phosphatase (38-126) U/L Troponin I (0.000-0.034) ng/mL Total Protein (6.3-8.2) g/dL Albumin (3.5-5.0) g/dL Critical Care Time Critical Care Time: Yes Total Critical Care Time: 35 Disposition Clinical Impression: Pneumonia due to COVID-19 virus, Hypoxia, Pulmonary embolism Disposition: ADMITTED IP TO THIS HOSP Referrals: Toño Martin MD [Primary Care Provider] - 1-2 days Time of Disposition: 12:33
[2020-09-17 08:41] LABS: Albumin 3.2 g/dL (3.5-5.0); Calcium 8.1 mg/dL (8.4-10.2); Magnesium 2.4 mg/dL (1.6-2.3); Potassium 4.9 mmol/L (3.5-5.1); Total Bilirubin 1.2 mg/dL (0.2-1.3); Total Protein 5.8 g/dL (6.3-8.2)
[2020-09-17 10:11] LABS: Anisocytosis Slight; HCT 41.4 % (39.0-53.0); HGB 14.4 gm/dL (13.0-17.5); Hyperchromasia Slight; MCH 28.9 pg (25.0-35.0); MCHC 34.7 g/dL (31.0-37.0); MCV 83.3 fL (80.0-100.0); Mean Platelet Volume 8.7; Platelet Count 253 k/uL (150-450); Poikilocytosis Moderate; RBC 4.96 m/uL (4.30-5.90); RDW 17.3 % (11.5-15.5); WBC 20.9 k/uL (3.8-10.6)
[2020-09-17 10:33] LABS: Partial Thromboplastin Time 22.6 sec (22.0-30.0); Prothrombin Time 10.7 sec (9.0-12.0)
[2020-09-17 10:53] LABS: D-Dimer 23.28 mg/L FEU (<0.60)
[2020-09-17 11:04] LABS: Band Neutrophils % 2 %; Eosinophils # (M) 0.21 k/uL (0-0.7); Lymphocytes # (M) 1.25 k/uL (1.0-4.8); Metamyelocytes # (M) 0.42 k/uL (0); Metamyelocytes % 2 %; Monocytes # (M) 1.46 k/uL (0-1.0); Myelocytes # (M) 0.21 k/uL (0); Myelocytes % 1 %; Neutrophils % (M) 83 %; Nucleated Red Blood Cells 0 /100 WBC (0-0); Total Cells Counted 200
[2020-09-17 11:07] LABS: Spherocytes Present
[2020-09-17] MEDS ORDERED: HEPARIN SODIUM 1,000 UN/ML (10ML VL) IV STA (12:29)
--- NOTE | 2020-09-17 12:34 | CT ---
EXAMINATION TYPE: CT chest angio for PE DATE OF EXAM: 09/17/2020 COMPARISON: 09/10/2020 HISTORY: Increase SOB, JAIRO CT DLP: 868.8 mGycm Automated exposure control for dose reduction was used. CONTRAST: CT Chest for pulmonary embolism performed with with IV Contrast, patient injected with 100 mL of Isov ue 370. FINDINGS: LUNGS: Scattered areas of groundglass consolidation changes are seen bilaterally correlate for a pneu monitis or developing pneumonia. More localized subsegmental consolidation in the left lower lobe. No sizable pneumothorax. Correlate for underlying COPD. MEDIASTINUM: There is extensive bilateral acute pulmonary emboli originating in the right and left ma in pulmonary arteries extending into the secondary and distal branches bilaterally comparable widespr ead acute pulmonary embolism. Report called to the ER physician 12:27 PM 09/17/2020. The right ventric ular to left ventricular mag ratio measures 1.1 compatible with mild RV strain. OTHER: Hypertrophic and degenerative changes of the spine. Sternotomy wires are seen. Indeterminate exophytic upper pole right renal lesion measuring 1.2 cm but finding was noted on the CT scan dating back to 09/23/2017. IMPRESSION: 1. Bilateral diffuse pulmonary acute embolism beginning at the level of the main pulmonary artery robert aterally and extending into the secondary and distal branches. Slightly elevated right ventricular le ft ventricular ratio suggest mild RV strain correlate clinically. 2. Widespread scattered groundglass changes bilaterally correlate for pneumonitis including viral pne umonitis.
[2020-09-17] MEDS ORDERED: SODIUM CHLORIDE 0.9% 1,000 ML IV ONE (12:37)
[2020-09-17] MEDS: HEPARIN SOD,PORK IN 0.45% NACL 25,000 UNIT in 0.45% NACL 1 250ML.BAG IV SCH (13:03)
--- NOTE | 2020-09-17 13:41 | P.GSCN ---
History of Present Illness Consult date: 09/17/20 Reason for Consult: Bilateral pulmonary emboli Requesting physician: Handy Maldonado History of present illness: This is a pleasant 70-year-old white male patient with past medical history significant for cardiac disease status post CABG, basal cell skin cancer, hyperlipidemia, hypertension, sleep apnea on CPAP, and obesity who presented to emergency department for increased shortness of breath. The patient was re cently admitted for a Cobra 19 infection and discharged home. This morning he he had increased shortness of breath and called paramedics, who placed him on CPAP and still was in the low 80s. Part of this workup is in the emergency department he had a CTA of the chest that showed bilateral diffuse pulmonary acute embolism beginning at the level of the main pulmonary artery bilaterally and extending into the secondary and distal branches. Slightly elevated right ventricular left ventricular ratio suggests mild RV strain correlate clinically. There is widespread scattered groundglass changes bilaterally correlate for pneumonitis including viral pneumonitis. The patient is seen and evaluated lying in bed with BiPAP, he states that shortness of breath seems to be better. He denies any acute chest pain. He denies any pain in bilateral lower extremities. His oxygen saturation is 100 sent on BiPAP with a respiratory rate between 20 and 24, FiO2 70. Review of Systems A 14 point review of systems was completed, all pertinent positives and negatives per HPI Past Medical History Past Medical History: Coronary Artery Disease (CAD), Cancer, Hyperlipidemia, Hypertension, Sleep Apnea/CPAP/BIPAP Additional Past Medical History / Comment(s): basal cell skin cancer cpap at night History of Any Multi-Drug Resistant Organisms: None Reported Past Surgical History: Coronary Bypass/CABG, Heart Catheterization, Orthopedic Surgery Additional Past Surgical History / Comment(s): basal cell skin cancer removed, left wrist fx with repair Past Anesthesia/Blood Transfusion Reactions: No Reported Reaction Past Psychological History: Anxiety Smoking Status: Former smoker Past Alcohol Use History: Rare Past Drug Use History: None Reported - Past Family History Sister(s) Family Medical History: Blood Disorder, Deep Vein Thrombosis (DVT) Medications and Allergies Home Medications Medication Instructions Recorded Confirmed Type Aspirin EC [Ecotrin Low Dose] 81 mg PO DAILY 09/23/17 09/17/20 History Atorvastatin Calcium [Lipitor] 80 mg PO HS 09/23/17 09/17/20 History Sertraline HCl [Zoloft] 150 mg PO DAILY 09/23/17 09/17/20 History atenoloL [Tenormin] 25 mg PO DAILY 09/23/17 09/17/20 History Albuterol Inhaler [Ventolin Hfa 2 puff INHALATION RT-Q6H PRN #1 09/11/20 09/17/20 Rx Inhaler] inhaler Ascorbic Acid [Vitamin C] 500 mg PO BID #30 tab 09/11/20 09/17/20 Rx Zinc Sulfate [Orazinc] 220 mg PO DAILY #20 cap 09/11/20 09/17/20 Rx dexAMETHasone ORAL [Hexadrol] 6 mg PO DAILY #7 tab 09/11/20 09/17/20 Rx Allergies Allergy/AdvReac Type Severity Reaction Status Date / Time No Known Allergies Allergy Verified 09/17/20 08:53 Surgical - Exam Vital Signs Temp Pulse Resp BP Pulse Ox 97.4 F L 125 H 30 H 113/85 99 09/17/20 07:35 09/17/20 07:35 09/17/20 07:35 09/17/20 07:35 09/17/20 07:35 General appearance: The patient is alert, oriented, appears in no acute distress at this time, on BiPaP. Obese. HET: Head is normocephalic and atraumatic. Neck: Supple without lymphadenopathy. Trachea midline. Heart: S1 S2. Regular rate and rhythm. Lungs: Normal expansion with equal air entry. Clear to auscultation Abdomen: Soft, obese, nontender, nondistended. Extremities: Normal skin color and turgor. No cyanosis, rash, ulceration, clubbing, or edema. Radial and pedal pulses are 2/4 bilaterally. Neurological: No focal deficits. Alert and oriented 3. Results - Labs 09/17/20 09:50 09/17/20 07:45 Abnormal Lab Results - Last 24 Hours (Table) 09/17/20 09/17/20 09/17/20 Range/Units 07:45 07:45 07:51 WBC (3.8-10.6) k/uL RDW (11.5-15.5) % Neutrophils # (Manual) (1.3-7.7) k/uL Monocytes # (Manual) (0-1.0) k/uL Metamyelocytes # (Man) (0) k/uL Myelocytes # (Manual) (0) k/uL D-Dimer (<0.60) mg/L FEU Carbon Dioxide 14 L (22-30) mmol/L BUN 24 H (9-20) mg/dL Glucose 292 H (74-99) mg/dL POC Glucose (mg/dL) 322 H (75-99) mg/dL Plasma Lactic Acid Nicholas 8.6 H* (0.7-2.0) mmol/L Calcium 8.1 L (8.4-10.2) mg/dL Magnesium 2.4 H (1.6-2.3) mg/dL ALT 54 H (4-49) U/L Total Protein 5.8 L (6.3-8.2) g/dL Albumin 3.2 L (3.5-5.0) g/dL 09/17/20 09/17/20 09/17/20 Range/Units 09:50 09:50 11:38 WBC 20.9 H (3.8-10.6) k/uL RDW 17.3 H (11.5-15.5) % Neutrophils # (Manual) 17.70 H (1.3-7.7) k/uL Monocytes # (Manual) 1.46 H (0-1.0) k/uL Metamyelocytes # (Man) 0.42 H (0) k/uL Myelocytes # (Manual) 0.21 H (0) k/uL D-Dimer 23.28 H (<0.60) mg/L FEU Carbon Dioxide (22-30) mmol/L BUN (9-20) mg/dL Glucose (74-99) mg/dL POC Glucose (mg/dL) (75-99) mg/dL Plasma Lactic Acid Nicholas 2.4 H* (0.7-2.0) mmol/L Calcium (8.4-10.2) mg/dL Magnesium (1.6-2.3) mg/dL ALT (4-49) U/L Total Protein (6.3-8.2) g/dL Albumin (3.5-5.0) g/dL Diabetes panel 09/17/20 Range/Units 07:45 Sodium 137 (137-145) mmol/L Potassium 4.9 (3.5-5.1) mmol/L Chloride 107 (98-107) mmol/L Carbon Dioxide 14 L (22-30) mmol/L BUN 24 H (9-20) mg/dL Creatinine 1.10 (0.66-1.25) mg/dL Glucose 292 H (74-99) mg/dL Calcium 8.1 L (8.4-10.2) mg/dL AST 49 (17-59) U/L ALT 54 H (4-49) U/L Alkaline Phosphatase 82 (38-126) U/L Total Protein 5.8 L (6.3-8.2) g/dL Albumin 3.2 L (3.5-5.0) g/dL Calcium panel 09/17/20 Range/Units 07:45 Calcium 8.1 L (8.4-10.2) mg/dL Albumin 3.2 L (3.5-5.0) g/dL Pituitary panel 09/17/20 Range/Units 07:45 Sodium 137 (137-145) mmol/L Potassium 4.9 (3.5-5.1) mmol/L Chloride 107 (98-107) mmol/L Carbon Dioxide 14 L (22-30) mmol/L BUN 24 H (9-20) mg/dL Creatinine 1.10 (0.66-1.25) mg/dL Glucose 292 H (74-99) mg/dL Calcium 8.1 L (8.4-10.2) mg/dL Adrenal panel 09/17/20 Range/Units 07:45 Sodium 137 (137-145) mmol/L Potassium 4.9 (3.5-5.1) mmol/L Chloride 107 (98-107) mmol/L Carbon Dioxide 14 L (22-30) mmol/L BUN 24 H (9-20) mg/dL Creatinine 1.10 (0.66-1.25) mg/dL Glucose 292 H (74-99) mg/dL Calcium 8.1 L (8.4-10.2) mg/dL Total Bilirubin 1.2 (0.2-1.3) mg/dL AST 49 (17-59) U/L ALT 54 H (4-49) U/L Alkaline Phosphatase 82 (38-126) U/L Total Protein 5.8 L (6.3-8.2) g/dL Albumin 3.2 L (3.5-5.0) g/dL - Imaging CT scan - chest: report reviewed (CTA of the chest that showed bilateral diffuse pulmonary acute embolism beginning at the level of the main pulmonary artery bilaterally and extending into the secondary and distal branches. Slightly elevated right ventricular left ventricular ratio suggests mild RV strain correlate clinically. The) Assessment and Plan Assessment: 1. Bilateral pulmonary embolism 2. Covid-19 pneumonitis 3. Obesity 4. History hypertension 5. History hyperlipidemia 6. History of coronary artery disease, status post CABG Plan: 1. Symptomatic and supportive care 2. Start heparin drip 3. Stat Echocardiogram ordered 4. Venous Doppler ultrasound bilateral lower extremities ordered 5. Pulmonology on consultation, appreciate their recommendations Thank you for this consultation, further recommendations to follow The impression and plan of care has been dictated as directed. Dr. Alan I performed a history and examination of this patient, discussed the same with the dictator. I agree with the dictator's note ,documented as a scribe. Any additional findings or plans will be noted.
--- NOTE | 2020-09-17 14:06 | US ---
EXAMINATION TYPE: US venous doppler duplex LE DATE OF EXAM: 09/17/2020 12:54 PM COMPARISON: NONE CLINICAL HISTORY: bilateral pulmonary emboli. PE, Covid SIDE PERFORMED: Bilateral TECHNIQUE: The lower extremity deep venous system is examined utilizing real time linear array sonog karma with graded compression, doppler sonography and color-flow sonography. VESSELS IMAGED: Common Femoral Vein Deep Femoral Vein Greater Saphenous Vein * Femoral Vein Popliteal Vein Small Saphenous Vein * Proximal Calf Veins (* superficial vessels) Right Leg: Negative for DVT Left Leg: Negative for DVT IMPRESSION: 1. No diagnostic evidence of DVT as visualized.
--- NOTE | 2020-09-17 15:49 | P.CNPUL ---
History of Present Illness Consult date: 09/17/20 Reason for consult: dyspnea, pneumonia, pulmonary embolism History of present illness: 70-year-old male patient, presented to the hospital because of shortness of breath. The patient was recently admitted for COVID 19 related pneumonia/infection and the patient was discharged home. The patient was hospitalized between 09/10/2020 and 09/11/2020 and the patient was not requiring oxygen and the patient was discharged home on Decadron. The patient this morning had some increased shortness of breath. He was found to be hypoxic by the EMS. He was brought into the emergency room with a CT angios gram of the chest was done and it shows diffuse bilateral pulmonary embolism with clots beginning at the level of the main pulmonary artery bilaterally and extending into the secondary and distal branches. The patient also had elevated RV/LV ratio consistent with right ventricular strain pattern. There was also bilateral ground glass pulmonary infiltrates consistent with Covid 19 related pneumonia. The patient also had a Doppler of the lower extremity that showed no evidence of any DVT. The patient is currently on IV heparin. The patient's d- dimer was at 23.2. Initial lactic acid level was 8.6 and subsequently dropped down to 2.4, and the patient a component of anion gap metabolic acidosis with a serum bicarb of 14 and a gap of 16. Creatinine is at 1.1, liver function tests were normal, troponin was less than 0.01, and the white cell count was 20.9 with a hemoglobin of 14.4 and a platelet count of 253. Was found to be quite short of breath and patient was placed on a BiPAP at a pressure of 14/7 cm of water with an FiO2 of 70%. His heart rate is around mid 70s in the most recent BP is 98/68. EKG showing a right bundle branch block pattern. Patient is currently on IV heparin. Review of Systems Constitutional: Denies chills, Denies fever Eyes: denies as per HPI, denies blurred vision, denies bulging eye, denies decreased vision, denies diplopia, denies discharge, denies dry eye, denies irritation, denies itching, denies pain, denies photophobia, denies loss of peripheral vision, denies loss of vision, denies tunnel vision/blind spots Ears: deny: decreased hearing, ear discharge, earache, tinnitus Ears, nose, mouth and throat: Reports as per HPI Breasts: absent: as per HPI, gynecomastia Cardiovascular: Reports decreased exercise tolerance, Reports dyspnea on exertion Respiratory: Reports dyspnea Gastrointestinal: Reports as per HPI Genitourinary: Reports as per HPI Musculoskeletal: Reports as per HPI Musculoskeletal: absent: ankle pain, ankle stiffness, ankle swelling Integumentary: Reports as per HPI Neurological: Reports as per HPI Psychiatric: Reports as per HPI Endocrine: Reports as per HPI Hematologic/Lymphatic: Reports as per HPI Allergic/Immunologic: Reports as per HPI Past Medical History Past Medical History: Coronary Artery Disease (CAD), Cancer, Hearing Disorder / Deafness, Hyperlipidemia, Hypertension, Sleep Apnea/CPAP/BIPAP Additional Past Medical History / Comment(s): Pt tested covid + on 09/04/20 at [facility] in [place]. [facility] with acute hypoxic respiratory failuer 2ndary to covid 19. Other hx: Basal cell skin cancer removald, SHEYLA with Cpap use, MAKAH bilaterally with L ear worse, occasional bilateral knee and low back pain. History of Any Multi-Drug Resistant Organisms: None Reported Past Surgical History: Appendectomy, Coronary Bypass/CABG, Heart Catheterization, Orthopedic Surgery Additional Past Surgical History / Comment(s): Basal cell skin cancer removals, left wrist fx with repair, 2012 CABG 4 vessel, lipoma removed r side neck, colonoscopies. Past Anesthesia/Blood Transfusion Reactions: No Reported Reaction Smoking Status: Former smoker - Past Family History Sister(s) Family Medical History: Blood Disorder, Deep Vein Thrombosis (DVT) Mother Family Medical History: Dementia Father History Unknown: Yes Medications and Allergies Home Medications Medication Instructions Recorded Confirmed Type Aspirin EC [Ecotrin Low Dose] 81 mg PO DAILY 09/23/17 09/17/20 History Atorvastatin Calcium [Lipitor] 80 mg PO HS 09/23/17 09/17/20 History Sertraline HCl [Zoloft] 150 mg PO DAILY 09/23/17 09/17/20 History atenoloL [Tenormin] 25 mg PO DAILY 09/23/17 09/17/20 History Albuterol Inhaler [Ventolin Hfa 2 puff INHALATION RT-Q6H PRN #1 09/11/20 09/17/20 Rx Inhaler] inhaler Ascorbic Acid [Vitamin C] 500 mg PO BID #30 tab 09/11/20 09/17/20 Rx Zinc Sulfate [Orazinc] 220 mg PO DAILY #20 cap 09/11/20 09/17/20 Rx dexAMETHasone ORAL [Hexadrol] 6 mg PO DAILY #7 tab 09/11/20 09/17/20 Rx Allergies Allergy/AdvReac Type Severity Reaction Status Date / Time No Known Allergies Allergy Verified 09/17/20 08:53 Physical Exam Vitals: Vital Signs Temp Pulse Resp BP Pulse Ox 09/17/20 14:00 79 21 98/68 97 09/17/20 13:06 75 20 98/68 100 09/17/20 13:00 72 20 102/64 98 09/17/20 12:22 74 24 102/64 99 09/17/20 12:00 77 21 88/67 100 09/17/20 11:00 73 23 99/72 100 09/17/20 10:03 89 24 99/72 100 09/17/20 09:21 90 25 H 105/69 100 09/17/20 08:23 89 27 H 111/71 100 09/17/20 07:55 105 H 18 111/83 100 09/17/20 07:50 110 H 30 H 09/17/20 07:43 32 H 09/17/20 07:35 97.4 F L 125 H 30 H 113/85 99 Intake and Output 09/17/20 09/17/20 09/17/20 06:59 14:59 22:59 Other: Weight 108 kg General appearance: The patient is alert, oriented, appears in no acute distress at this time, on BiPaP. Obese. And the patient carries a BMI of 34.2 Head exam was generally normal. There was no scleral icterus or corneal arcus. Mucous membranes were moist. Neck was supple and without jugular venous distension, thyromegaly, or carotid bruits. Carotids were easily palpable bilaterally. There was no adenopathy. Cardiac exam revealed the PMI to be normally situated and sized. The rhythm was regular and no extrasystoles were noted during several minutes of auscultation. The first and second heart sounds were normal and physiologic splitting of the second heart sound was noted. There were no murmurs, rubs, clicks, or gallops. Lungs: Normal expansion with equal air entry. Clear to auscultation Abdomen: Soft, obese, nontender, nondistended. Extremities: Normal skin color and turgor. No cyanosis, rash, ulceration, clubbing, or edema. Radial and pedal pulses are 2/4 bilaterally. Neurologically, the patient is awake and alert and the patient does not have any focal neurological deficit. Cranial nerves are essentially intact. Examination of the skin revealed no evidence of significant rashes, suspicious appearing nevi or other concerning lesions. Results - Laboratory Findings CBC and BMP: 09/17/20 09:50 09/17/20 07:45 PT/INR, D-dimer PT 10.7 sec (9.0-12.0) 09/17/20 09:50 INR 1.0 (<1.2) 09/17/20 09:50 D-Dimer 23.28 mg/L FEU (<0.60) H 09/17/20 09:50 Abnormal lab findings: Abnormal Labs 09/17/20 09/17/20 09/17/20 07:45 07:45 07:51 WBC RDW Neutrophils # (Manual) Monocytes # (Manual) Metamyelocytes # (Man) Myelocytes # (Manual) D-Dimer Carbon Dioxide 14 L BUN 24 H Glucose 292 H POC Glucose (mg/dL) 322 H Plasma Lactic Acid Nicholas 8.6 H* Calcium 8.1 L Magnesium 2.4 H ALT 54 H Total Protein 5.8 L Albumin 3.2 L 09/17/20 09/17/20 09/17/20 09:50 09:50 11:38 WBC 20.9 H RDW 17.3 H Neutrophils # (Manual) 17.70 H Monocytes # (Manual) 1.46 H Metamyelocytes # (Man) 0.42 H Myelocytes # (Manual) 0.21 H D-Dimer 23.28 H Carbon Dioxide BUN Glucose POC Glucose (mg/dL) Plasma Lactic Acid Nicholas 2.4 H* Calcium Magnesium ALT Total Protein Albumin - Diagnostic Findings Chest x-ray: image reviewed CT scan - chest: image reviewed Assessment and Plan Plan: 1 acute hypoxic respiratory failure and the patient is currently on a BiPAP at a pressure of 14/7 cm of water with an FiO2 of 100%. The patient's respiratory failure is multifactorial. The patient has Covid 19 related pneumonia and bilateral pulmonary embolism both contributing to this acute hypoxic respiratory failure 2 acute bilateral pulmonary embolism and a previous refer to the CT angios and the patient has a RV strain pattern. 3 acute bilateral Covid 19 related pneumonia with minimal groundglass changes bilaterally 4 obstructive sleep apnea maintained on CPAP on outpatient basis 5 coronary artery disease 6 hypertension 7 hyperlipidemia 8 previous history of skin cancer of a basal cell carcinoma type 9 acute lactic acidosis, improved and the patient also had anion gap metabolic acidosis 10 leukocytosis Plan We'll admit the patient to the intensive care unit IV heparin 2-D echocardiogram to evaluate pulmonary hypertension and RV dysfunction and strain pattern Consulted vascular surgery for possibility of intra-arterial thrombolytics Continue BiPAP therapy for now Keep same BiPAP settings Obtain a blood gas Check a pro-calcitonin level Complete a course of Decadron 6 mg by mouth daily , extend to a ten-day course We'll continue to follow. Doppler of the lower extremities are negative for now. IV fluids with normal saline at the rate of 100 mL an hour
[2020-09-17 16:35] LABS: ABG Base Excess -3.7 mmol/L; ABG HCO3 21 mmol/L (21-25); ABG Oxygen Saturation 98.3 % (94-97); ABG PCO2 31 mmHg (35-45); ABG PH 7.43 (7.35-7.45); ABG PO2 113 mmHg (83-108); ABG TCO2 22 mmol/L (19-24); Allen Test Performed? Yes
[2020-09-17] MEDS: SODIUM CHLORIDE 0.9% 1,000 ML IV SCH (16:56)
[2020-09-17] MEDS: dexAMETHasone 2 MG TAB PO SCH (16:56)
--- NOTE | 2020-09-17 17:38 | ECHOF ---
Referral Reason:bilateral pumonary emboli MEASUREMENTS -------- HEIGHT: 180.3 cm WEIGHT: 108.0 kg BP: RVIDd: 3.8 cm (< 3.3) IVSd: 1.7 cm (0.6 - 1.1) LVIDd: 2.9 cm (3.9 - 5.3) LVPWd: 1.5 cm (0.6 - 1.1) IVSs: 1.9 cm LVIDs: 2.3 cm LVPWs: 1.8 cm Ao Diam: 3.7 cm (2.0 - 3.7) AV Cusp: 1.5 cm (1.5 - 2.6) LA Diam: 3.6 cm (2.7 - 3.8) MV EXCURSION: 13.536 mm (> 18.000) MV EF SLOPE: 56 mm/s (70 - 150) EPSS: 1.5 cm MV E Brian: 0.59 m/s MV DecT: 227 ms MV A Brian: 0.82 m/s MV E/A Ratio: 0.71 AR PHT: 436 ms RAP: 5.00 mmHg RVSP: 47.48 mmHg TAPSE: 9.54 mm FINDINGS -------- This was a technically difficult study with suboptimal views. The left ventricular size is normal. There is moderate concentric left ventricular hypertrophy. O verall left ventricular systolic function is mild-moderately impaired with, an EF between 40 - 45 %. Basal inferoseptal LV wall motion is hypokinetic. Mid inferoseptal LV wall motion is hypokinetic . The right ventricle is moderately enlarged. The right ventricular systolic function is moderately i mpaired. The left atrial size is normal. The right atrial size is normal. Lumason used The aortic valve is trileaflet and appears structurally normal. Trace amount of aortic regurgitatio n. The mitral valve is normal. There is trace mitral regurgitation. Cannot exclude mitral valve prol apse. The tricuspid valve appears structurally normal. Mild tricuspid regurgitation present. There is m ild pulmonary hypertension. The right ventricular systolic pressure, as measured by Doppler, is 47. 48mmHg. There is no pulmonic regurgitation present. The aortic root size is normal. IVC Not well visulized. There is a small, generalized pericardial effusion present. CONCLUSIONS -------- 1. The left ventricular size is normal. 2. There is moderate concentric left ventricular hypertrophy. 3. Overall left ventricular systolic function is mild-moderately impaired with, an EF between 40 - 45 %. 4. Basal inferoseptal LV wall motion is hypokinetic. 5. Mid inferoseptal LV wall motion is hypokinetic. 6. The right ventricle is moderately enlarged. 7. The right ventricular systolic function is moderately impaired. 8. Trace amount of aortic regurgitation. 9. There is trace mitral regurgitation. 10. Cannot exclude mitral valve prolapse. 11. Mild tricuspid regurgitation present. 12. There is mild pulmonary hypertension. 13. The right ventricular systolic pressure, as measured by Doppler, is 47.48mmHg. 14. There is a small, generalized pericardial effusion present. CMM INSPECTOR: Bhavani Reyes RDCS
[2020-09-17 18:30] LABS: Glucose,Whole Blood 139 mg/dL (75-99)
[2020-09-17] MEDS: INSULIN ASPART (NovoLOG) 100 UNIT/ML VIAL SQ SCH ×2 (18:30→23:01)
--- NOTE | 2020-09-17 20:26 | P.HPIM ---
History of Present Illness H&P Date: 09/17/20 Chief Complaint: JAIRO Patient is a 70-year-old male with a known history of coronary artery disease remote, CABG, basal cell cancer, hypertension, hyperlipidemia, obstructive sleep apnea presents to ER due to worsening shortness of breath. Patient denies any complaints of chest pain. Generalized weakness and no complaints of dizziness or lightheadedness. No fever no chills. No nausea vomiting or abdominal pain or diarrhea. Patient is hard of hearing and is also on BiPAP. Patient was tested positive for COVID-19 infection on 09/04/2020 at [facility] in [place]. Patient was recently admitted to the hospital from 09/10/2020 to 09/11/2020 due to hypoxic respiratory failure and was not requiring oxygen upon discharge. Patient was discharged home on Decadron 6 mg daily. Patient has been having increased shortness of breath this morning. Patient was brought to the hospital by EMS. In the ER patient was found to be in hypoxic respiratory failure and was placed on BiPAP. Patient was found to have elevated D-dimer level 23.28. CT angio of the chest was done which showed bilateral diffuse pulmonary acute emboli beginning at the level of main pulmonary artery bilaterally and extending into the secondary and distal branches. Slightly elevated right ventricular left-ventricular ratio suggest mild RV strain. Widespread scattered abdominal gassiness bilaterally correlate for pneumonitis including viral pneumonitis. Laboratory data showed WBC 20.9 hemoglobin 14.4 lymphocytes 1.25 and lactic acid level was 8.6 on admission and blood sugar 292 troponin less than 0.012 ABG showed pH of 7.43, PCO2 31 PO2 133 EKG showed right bundle branch block. Review of Systems Constitutional: Patient denies any fever or chills . + generalized weakness or weight loss. Abdomen: Patient denied nausea vomiting and diarrhea and abdominal pain. Cardiovascular: Patient denies any chest pain or short of breath no palpitations. Respiratory: patient denied any cough or sputum production. + shortness of breath Neurologic: Patient denied any numbness or tingling headache. Musculoskeletal: Patient denies any complaints of joint swelling or deformity. Skin: Negative Psychiatric: Negative Endocrine: No heat or cold intolerance. No recent weight gain. Genitourinary: No dysuria or hematuria. All other 14 point ROS negative except the above Past Medical History Past Medical History: Coronary Artery Disease (CAD), Cancer, Hearing Disorder / Deafness, Hyperlipidemia, Hypertension, Sleep Apnea/CPAP/BIPAP Additional Past Medical History / Comment(s): Pt tested covid + on 09/04/20 at [facility] in [place]. Pt recently admitted to [facility] on 09/10/20 with acute hypoxic respiratory failuer 2ndary to covid 19. Other hx: Basal cell skin cancer removald, SHEYLA with Cpap use, GULKANA bilaterally with L ear worse, occasional bilateral knee and low back pain. History of Any Multi-Drug Resistant Organisms: None Reported Past Surgical History: Appendectomy, Coronary Bypass/CABG, Heart Catheterization, Orthopedic Surgery Additional Past Surgical History / Comment(s): Basal cell skin cancer removals, left wrist fx with repair, 2012 CABG 4 vessel, lipoma removed r side neck, colonoscopies. Past Anesthesia/Blood Transfusion Reactions: No Reported Reaction Smoking Status: Former smoker - Past Family History Sister(s) Family Medical History: Blood Disorder, Deep Vein Thrombosis (DVT) Mother Family Medical History: Dementia Father History Unknown: Yes Medications and Allergies Home Medications Medication Instructions Recorded Confirmed Type Aspirin EC [Ecotrin Low Dose] 81 mg PO DAILY 09/23/17 09/17/20 History Atorvastatin Calcium [Lipitor] 80 mg PO HS 09/23/17 09/17/20 History Sertraline HCl [Zoloft] 150 mg PO DAILY 09/23/17 09/17/20 History atenoloL [Tenormin] 25 mg PO DAILY 09/23/17 09/17/20 History Albuterol Inhaler [Ventolin Hfa 2 puff INHALATION RT-Q6H PRN #1 09/11/20 1 Rx Inhaler] inhaler Ascorbic Acid [Vitamin C] 500 mg PO BID #30 tab 09/11/20 09/17/20 Rx Zinc Sulfate [Orazinc] 220 mg PO DAILY #20 cap 09/11/20 09/17/20 Rx dexAMETHasone ORAL [Hexadrol] 6 mg PO DAILY #7 tab 09/11/20 09/17/20 Rx Allergies Allergy/AdvReac Type Severity Reaction Status Date / Time No Known Allergies Allergy Verified 09/17/20 08:53 Physical Exam Vitals: Vital Signs Temp Pulse Resp BP Pulse Ox 09/17/20 14:00 79 21 98/68 97 09/17/20 13:06 75 20 98/68 100 09/17/20 13:00 72 20 102/64 98 09/17/20 12:22 74 24 102/64 99 09/17/20 12:00 77 21 88/67 100 09/17/20 11:00 73 23 99/72 100 09/17/20 10:03 89 24 99/72 100 09/17/20 09:21 90 25 H 105/69 100 09/17/20 08:23 89 27 H 111/71 100 09/17/20 07:55 105 H 18 111/83 100 09/17/20 07:50 110 H 30 H 09/17/20 07:43 32 H 09/17/20 07:35 97.4 F L 125 H 30 H 113/85 99 Intake and Output 09/17/20 09/17/20 09/17/20 06:59 14:59 22:59 Other: Weight 108 kg PHYSICAL EXAMINATION: Patient is lying in the bed comfortably, no acute distress, awake alert and oriented.. HEENT: Normocephalic. Neck is supple. Pupils reactive. Nostrils clear. Oral cavity is moist. Ears reveal no drainage. Neck reveals no JVD, carotid bruits, or thyromegaly. CHEST EXAMINATION: Trachea is central. Symmetrical expansion. Lung johnson clear to auscultation and percussion. CARDIAC: Normal S1, S2 with no gallops. No murmurs ABDOMEN: Soft. Bowel sounds normal. No organomegaly. No abdominal bruits. Extremities: reveal no edema. No clubbing or cyanosis Neurologically awake, alert, oriented x3 with well-coordinated movements. No focal deficits noted Skin: No rash or skin lesions. Psychiatric: Coperative. Nonsuicidal Musculoskeletal: No joint swelling or deformity. Normal range of motion. Results CBC & Chem 7: 09/17/20 09:50 09/17/20 07:45 Labs: Abnormal Lab Results - Last 24 Hours (Table) 09/17/20 09/17/20 09/17/20 Range/Units 07:45 07:45 07:51 WBC (3.8-10.6) k/uL RDW (11.5-15.5) % Neutrophils # (Manual) (1.3-7.7) k/uL Monocytes # (Manual) (0-1.0) k/uL Metamyelocytes # (Man) (0) k/uL Myelocytes # (Manual) (0) k/uL D-Dimer (<0.60) mg/L FEU Carbon Dioxide 14 L (22-30) mmol/L BUN 24 H (9-20) mg/dL Glucose 292 H (74-99) mg/dL POC Glucose (mg/dL) 322 H (75-99) mg/dL Plasma Lactic Acid Nicholas 8.6 H* (0.7-2.0) mmol/L Calcium 8.1 L (8.4-10.2) mg/dL Magnesium 2.4 H (1.6-2.3) mg/dL ALT 54 H (4-49) U/L Total Protein 5.8 L (6.3-8.2) g/dL Albumin 3.2 L (3.5-5.0) g/dL 09/17/20 09/17/20 09/17/20 Range/Units 09:50 09:50 11:38 WBC 20.9 H (3.8-10.6) k/uL RDW 17.3 H (11.5-15.5) % Neutrophils # (Manual) 17.70 H (1.3-7.7) k/uL Monocytes # (Manual) 1.46 H (0-1.0) k/uL Metamyelocytes # (Man) 0.42 H (0) k/uL Myelocytes # (Manual) 0.21 H (0) k/uL D-Dimer 23.28 H (<0.60) mg/L FEU Carbon Dioxide (22-30) mmol/L BUN (9-20) mg/dL Glucose (74-99) mg/dL POC Glucose (mg/dL) (75-99) mg/dL Plasma Lactic Acid Nicholas 2.4 H* (0.7-2.0) mmol/L Calcium (8.4-10.2) mg/dL Magnesium (1.6-2.3) mg/dL ALT (4-49) U/L Total Protein (6.3-8.2) g/dL Albumin (3.5-5.0) g/dL Thrombosis Risk Factor Assmnt - DVT/VTE Prophylaxis DVT/VTE Prophylaxis: Pharmacologic Prophylaxis ordered - Choose All That Apply Any of the Below Risk Factors Present?: Yes Each Factor Represents 1 point: Obesity (BMI >25), Serious lung disease incl. pneumonia (< 1month) Other Risk Factors: Yes Each Risk Factor Represents 2 Points: Age 61-74 years, Malignancy Each Risk Factor Represents 3 Points: Family history of DVT/PE, History of DVT/PE Other congenital or acquired thrombophilia - If yes, enter type in comment: No Thrombosis Risk Factor Assessment Total Risk Factor Score: 12 Thrombosis Risk Factor Assessment Level: High Risk Assessment and Plan Assessment: Acute hypoxic respiratory failure requiring BiPAP secondary to acute bilateral diffuse pulmonary emboli. Acute bilateral PE with mild RV strain Severe lactic acidosis 8.6 due to hypoxia improving now Acute bilateral Covid 19 pneumonia with groundglass opacities bilaterally. COVID-19 diagnosed, 09/04/2020 Obstructive sleep apnea on CPAP at home Coronary disease history of CABG Basal cell carcinoma of the skin s/p removal Hypertension Hyperlipidemia Leukocytosis likely due to steroid use. Rule out infection Hyperglycemia likely due to steroids. A1c level was ordered DVT prophylaxis patient is already on heparin drip. Plan: Patient was placed on BiPAP and started on heparin drip currently. Vascular surgery was consulted for possible intervention including EKOS. Continue with IV hydration and follow-up lactic acid level. Patient will be continued on dexamethasone and multivitamins and oxygen supplementation. Insulin sliding scale and follow-up A1c level 2D echocardiogram and lower extremity duplex scan was ordered. Pulmonary is on board and further recommendations based on clinical course. Prognosis guarded at this time. Time with Patient: Greater than 30
[2020-09-17 22:54] LABS: Glucose,Whole Blood 182 mg/dL (75-99)
[2020-09-17] MEDS: ASCORBIC ACID 500 MG TAB PO SCH (23:01)
[2020-09-17] MEDS: ATORVASTATIN 80 MG TAB PO SCH (23:01)
[2020-09-18] MEDS: SODIUM CHLORIDE 0.9% 1,000 ML IV SCH ×3 (01:22→20:06)
[2020-09-18] MEDS: HEPARIN SOD,PORK IN 0.45% NACL 25,000 UNIT in 0.45% NACL 1 250ML.BAG IV SCH ×2 (01:22→20:10)
[2020-09-18 04:02] LABS: Anisocytosis Slight; Basophils # (A) 0.1 k/uL (0-0.2); Basophils % (A) 1 %; Eosinophils # (A) 0.1 k/uL (0-0.7); Eosinophils % (A) 1 %; HCT 35.6 % (39.0-53.0); HGB 12.4 gm/dL (13.0-17.5); Hyperchromasia Slight; Lymphocytes # (A) 0.7 k/uL (1.0-4.8); Lymphocytes % (A) 5 %; MCH 29.2 pg (25.0-35.0); MCHC 34.9 g/dL (31.0-37.0); MCV 83.7 fL (80.0-100.0); Mean Platelet Volume 8.9; Monocytes # (A) 0.8 k/uL (0-1.0); Monocytes % (A) 5 %; Neutrophils # (A) 13.5 k/uL (1.3-7.7); Neutrophils % (A) 89 %; Platelet Count 213 k/uL (150-450); Poikilocytosis Moderate; RBC 4.26 m/uL (4.30-5.90); RDW 17.5 % (11.5-15.5); WBC 15.2 k/uL (3.8-10.6)
[2020-09-18 04:48] LABS: African American GFR (CKD) >90 (>60 ml/min/1.73 sqM); Anion Gap 6 mmol/L; Blood Urea Nitrogen 24 mg/dL (9-20); Calcium 8.2 mg/dL (8.4-10.2); Carbon Dioxide 23 mmol/L (22-30); Chloride 108 mmol/L (98-107); Glucose 131 mg/dL (74-99); Non-African American GFR(CKD) 88 (>60 ml/min/1.73 sqM); Potassium 5.1 mmol/L (3.5-5.1); Sodium 137 mmol/L (137-145)
[2020-09-18 06:14] LABS: Glucose,Whole Blood 139 mg/dL (75-99)
[2020-09-18] MEDS: INSULIN ASPART (NovoLOG) 100 UNIT/ML VIAL SQ SCH ×4 (06:55→20:32)
[2020-09-18] MEDS: ALBUTEROL HFA INHALER INHALATION PRN ×4 (07:11→20:56)
[2020-09-18] MEDS: dexAMETHasone 2 MG TAB PO SCH (08:52)
[2020-09-18] MEDS: SERTRALINE 100 MG TAB PO SCH (08:52)
[2020-09-18] MEDS: ASCORBIC ACID 500 MG TAB PO SCH ×2 (08:52→20:04)
[2020-09-18] MEDS: ASPIRIN 81 MG PO SCH (08:52)
[2020-09-18] MEDS: ZINC SULFATE 220 MG CAP PO SCH (08:52)
--- NOTE | 2020-09-18 11:27 | P.PN ---
Subjective Progress Note Date: 09/18/20 Principal diagnosis: Pulmonary embolism She is seen and examined lying in bed. His respiratory status is improved, he is no longer on BiPAP and is on 15 L high flow nasal cannula. He states his breathing is better and shortness of breath has improved. He is denying any chest pain. Objective - Vital Signs Vital signs: Vital Signs Temp 97.4 F L 09/18/20 08:00 Pulse 57 L 09/18/20 08:00 Resp 20 09/18/20 08:00 BP 127/87 09/18/20 08:00 Pulse Ox 100 09/18/20 08:00 Intake & Output 09/17/20 09/18/20 09/18/20 18:59 06:59 18:59 Intake Total 270.614 Output Total 350 Balance -79.386 Weight 108 kg Intake: IV 20 Invasive Line 1 10 Invasive Line 2 10 Intake, IV Titration 250.614 Amount Heparin Sod,Pork in 0.45% 250.614 NaCl 25,000 unit In 0.45 % NaCl 1 250ml.bag @ 18 UNITS/KG/HR 19.44 mls/hr IV .[id number] [facility] Rx#: [id number] Output: Urine 350 Other: Voiding Method Urinal # Voids 1 # Bowel Movements 0 - Exam General appearance: The patient is alert, oriented, appears in no acute distress. HET: Head is normocephalic and atraumatic. Neck: Supple without lymphadenopathy. Trachea midline. Heart: S1 S2. Regular rate and rhythm. Lungs: Clear to auscultation. Abdomen: Soft, nontender, nondistended. Extremities: Normal skin color and turgor. No cyanosis, rash, ulceration, clubbing, or edema. Radial and pedal pulses are 2/4 bilaterally. Neurological: No focal deficits. Alert and oriented 3.. - Labs CBC & Chem 7: 09/18/20 03:44 09/18/20 03:44 Labs: Abnormal Lab Results - Last 24 Hours (Table) 09/17/20 09/17/20 09/17/20 Range/Units 07:45 07:45 09:50 WBC 20.9 H (3.8-10.6) k/uL RBC (4.30-5.90) m/uL Hgb (13.0-17.5) gm/dL Hct (39.0-53.0) % RDW 17.3 H (11.5-15.5) % Neutrophils # (1.3-7.7) k/uL Neutrophils # (Manual) 17.70 H (1.3-7.7) k/uL Lymphocytes # (1.0-4.8) k/uL Monocytes # (Manual) 1.46 H (0-1.0) k/uL Metamyelocytes # (Man) 0.42 H (0) k/uL Myelocytes # (Manual) 0.21 H (0) k/uL APTT (22.0-30.0) sec D-Dimer (<0.60) mg/L FEU ABG pCO2 (35-45) mmHg ABG pO2 (83-108) mmHg ABG O2 Saturation (94-97) % Chloride (98-107) mmol/L Carbon Dioxide 14 L (22-30) mmol/L BUN 24 H (9-20) mg/dL Glucose 292 H (74-99) mg/dL POC Glucose (mg/dL) (75-99) mg/dL Plasma Lactic Acid Nicholas 8.6 H* (0.7-2.0) mmol/L Calcium 8.1 L (8.4-10.2) mg/dL Magnesium 2.4 H (1.6-2.3) mg/dL ALT 54 H (4-49) U/L Total Protein 5.8 L (6.3-8.2) g/dL Albumin 3.2 L (3.5-5.0) g/dL Procalcitonin (0.02-0.09) ng/mL 09/17/20 09/17/20 09/17/20 Range/Units 09:50 11:38 16:12 WBC (3.8-10.6) k/uL RBC (4.30-5.90) m/uL Hgb (13.0-17.5) gm/dL Hct (39.0-53.0) % RDW (11.5-15.5) % Neutrophils # (1.3-7.7) k/uL Neutrophils # (Manual) (1.3-7.7) k/uL Lymphocytes # (1.0-4.8) k/uL Monocytes # (Manual) (0-1.0) k/uL Metamyelocytes # (Man) (0) k/uL Myelocytes # (Manual) (0) k/uL APTT (22.0-30.0) sec D-Dimer 23.28 H (<0.60) mg/L FEU ABG pCO2 (35-45) mmHg ABG pO2 (83-108) mmHg ABG O2 Saturation (94-97) % Chloride (98-107) mmol/L Carbon Dioxide (22-30) mmol/L BUN (9-20) mg/dL Glucose (74-99) mg/dL POC Glucose (mg/dL) (75-99) mg/dL Plasma Lactic Acid Nicholas 2.4 H* (0.7-2.0) mmol/L Calcium (8.4-10.2) mg/dL Magnesium (1.6-2.3) mg/dL ALT (4-49) U/L Total Protein (6.3-8.2) g/dL Albumin (3.5-5.0) g/dL Procalcitonin 0.16 H (0.02-0.09) ng/mL 09/17/20 09/17/20 09/17/20 Range/Units 16:30 18:29 18:59 WBC (3.8-10.6) k/uL RBC (4.30-5.90) m/uL Hgb (13.0-17.5) gm/dL Hct (39.0-53.0) % RDW (11.5-15.5) % Neutrophils # (1.3-7.7) k/uL Neutrophils # (Manual) (1.3-7.7) k/uL Lymphocytes # (1.0-4.8) k/uL Monocytes # (Manual) (0-1.0) k/uL Metamyelocytes # (Man) (0) k/uL Myelocytes # (Manual) (0) k/uL APTT >200.0 H* (22.0-30.0) sec D-Dimer (<0.60) mg/L FEU ABG pCO2 31 L (35-45) mmHg ABG pO2 113 H (83-108) mmHg ABG O2 Saturation 98.3 H (94-97) % Chloride (98-107) mmol/L Carbon Dioxide (22-30) mmol/L BUN (9-20) mg/dL Glucose (74-99) mg/dL POC Glucose (mg/dL) 139 H (75-99) mg/dL Plasma Lactic Acid Nicholas (0.7-2.0) mmol/L Calcium (8.4-10.2) mg/dL Magnesium (1.6-2.3) mg/dL ALT (4-49) U/L Total Protein (6.3-8.2) g/dL Albumin (3.5-5.0) g/dL Procalcitonin (0.02-0.09) ng/mL 09/17/20 09/18/20 09/18/20 Range/Units 22:52 03:44 03:44 WBC 15.2 H (3.8-10.6) k/uL RBC 4.26 L (4.30-5.90) m/uL Hgb 12.4 L (13.0-17.5) gm/dL Hct 35.6 L (39.0-53.0) % RDW 17.5 H (11.5-15.5) % Neutrophils # 13.5 H (1.3-7.7) k/uL Neutrophils # (Manual) (1.3-7.7) k/uL Lymphocytes # 0.7 L (1.0-4.8) k/uL Monocytes # (Manual) (0-1.0) k/uL Metamyelocytes # (Man) (0) k/uL Myelocytes # (Manual) (0) k/uL APTT (22.0-30.0) sec D-Dimer (<0.60) mg/L FEU ABG pCO2 (35-45) mmHg ABG pO2 (83-108) mmHg ABG O2 Saturation (94-97) % Chloride 108 H (98-107) mmol/L Carbon Dioxide (22-30) mmol/L BUN 24 H (9-20) mg/dL Glucose 131 H (74-99) mg/dL POC Glucose (mg/dL) 182 H (75-99) mg/dL Plasma Lactic Acid Nicholas (0.7-2.0) mmol/L Calcium 8.2 L (8.4-10.2) mg/dL Magnesium (1.6-2.3) mg/dL ALT (4-49) U/L Total Protein (6.3-8.2) g/dL Albumin (3.5-5.0) g/dL Procalcitonin (0.02-0.09) ng/mL 09/18/20 09/18/20 Range/Units 03:44 06:13 WBC (3.8-10.6) k/uL RBC (4.30-5.90) m/uL Hgb (13.0-17.5) gm/dL Hct (39.0-53.0) % RDW (11.5-15.5) % Neutrophils # (1.3-7.7) k/uL Neutrophils # (Manual) (1.3-7.7) k/uL Lymphocytes # (1.0-4.8) k/uL Monocytes # (Manual) (0-1.0) k/uL Metamyelocytes # (Man) (0) k/uL Myelocytes # (Manual) (0) k/uL APTT 125.6 H* (22.0-30.0) sec D-Dimer (<0.60) mg/L FEU ABG pCO2 (35-45) mmHg ABG pO2 (83-108) mmHg ABG O2 Saturation (94-97) % Chloride (98-107) mmol/L Carbon Dioxide (22-30) mmol/L BUN (9-20) mg/dL Glucose (74-99) mg/dL POC Glucose (mg/dL) 139 H (75-99) mg/dL Plasma Lactic Acid Nicholas (0.7-2.0) mmol/L Calcium (8.4-10.2) mg/dL Magnesium (1.6-2.3) mg/dL ALT (4-49) U/L Total Protein (6.3-8.2) g/dL Albumin (3.5-5.0) g/dL Procalcitonin (0.02-0.09) ng/mL Assessment and Plan Assessment: 1. Bilateral pulmonary embolism 2. Covid-19 pneumonitis 3. Obesity 4. History hypertension 5. History hyperlipidemia 6. History of coronary artery disease, status post CABG Plan: 1. Symptomatic and supportive care 2. Continue heparin drip 3. Echocardiogram ordered and reviewed 4. Venous Doppler ultrasound bilateral lower extremities ordered and reviewed 5. Pulmonology on consultation, appreciate their recommendations 6. Long discusssion had with patient regarding EKOS procedure versus medical managment. Risks and benefits discussed with patient. Discussed EKOS procedure is non-emergent. Plan of care discussed with both cardiology and pulmonology, at this time due to improvement in respiratory status and mild right heart strain likely multifactorial from Covid-19 pneumonitis as well as pulmonary embolism will hold off on EKOS and continue heparin drip. Thank you for this consultation, will continue to follow The impression and plan of care has been dictated as directed. Dr. Villafana I performed a history and examination of this patient, discussed the same with the dictator. I agree with the dictator's note ,documented as a scribe. Any additional findings or plans will be noted.
[2020-09-18 12:06] LABS: Glucose,Whole Blood 139 mg/dL (75-99)
[2020-09-18 12:26] VITALS: BMI 34.1
--- NOTE | 2020-09-18 12:37 | P.PN ---
Subjective Progress Note Date: 09/18/20 70-year-old male patient, presented to the hospital because of shortness of breath. The patient was recently admitted for COVID 19 related pneumonia/infection and the patient was discharged home. The patient was hospitalized between 09/10/2020 and 09/11/2020 and the patient was not requiring oxygen and the patient was discharged home on Decadron. The patient this morning had some increased shortness of breath. He was found to be hypoxic by the EMS. He was brought into the emergency room with a CT angios gram of the chest was done and it shows diffuse bilateral pulmonary embolism with clots be ginning at the level of the main pulmonary artery bilaterally and extending into the secondary and distal branches. The patient also had elevated RV/LV ratio consistent with right ventricular strain pattern. There was also bilateral ground glass pulmonary infiltrates consistent with Covid 19 related pneumonia. The patient also had a Doppler of the lower extremity that showed no evidence of any DVT. The patient is currently on IV heparin. The patient's d-dimer was at 23.2. Initial lactic acid level was 8.6 and subsequently dropped down to 2.4, and the patient a component of anion gap metabolic acidosis with a serum bicarb of 14 and a gap of 16. Creatinine is at 1.1, liver function tests were normal, troponin was less than 0.01, and the white cell count was 20.9 with a hemoglobin of 14.4 and a platelet count of 253. Was found to be quite short of breath and patient was placed on a BiPAP at a pressure of 14/7 cm of water with an FiO2 of 70%. His heart rate is around mid 70s in the most recent BP is 98/68. EKG showing a right bundle branch block pattern. Patient is currently on IV heparin. On today's evaluation of 09/18/2020, the patient was taken off the BiPAP and he was weaned off the apices of oxygen by nasal cannula. His resting comfortably in bed. Has no new complaints. No chest pain. No shortness of breath. Remains on IV heparin. Atelectatic discussion with the vascular surgeon and we opted not to use the intra-arterial thrombolytic system as the patient's condition was stable and the clot burden was not great and the patient was clinically improving. He is hemodynamically stable. His current blood pressure is 105/62. No tachycardia. Echocardiogram was also done and the patient had preserved LV with some mild dysfunction and ejection fraction of 40-45%, there was segmental wall motion abnormalities on the left, RV was moderately dilated and the pulmonary artery pressure was 47. There was evidence of some moderate impairment of the RV function. In any rate, the patient is doing well now Objective - Vital Signs Vital signs: Vital Signs Temp 97.9 F 09/18/20 11:49 Pulse 58 L 09/18/20 11:49 Resp 20 09/18/20 11:49 BP 105/62 09/18/20 11:49 Pulse Ox 100 09/18/20 11:49 Intake & Output 09/17/20 09/18/20 09/18/20 18:59 06:59 18:59 Intake Total 270.614 118 Output Total 350 350 Balance -79.386 -232 Weight 108 kg 108 kg Intake: IV 20 Invasive Line 1 10 Invasive Line 2 10 Intake, IV Titration 250.614 Amount Heparin Sod,Pork in 0.45% 250.614 NaCl 25,000 unit In 0.45 % NaCl 1 250ml.bag @ 18 UNITS/KG/HR 19.44 mls/hr IV .[id number] [facility] Rx#: [id number] Oral 118 Output: Urine 350 350 Other: Voiding Method Urinal # Voids 1 # Bowel Movements 0 - Exam General appearance: The patient is alert, oriented, appears in no acute distress at this time, on BiPaP. Obese. And the patient carries a BMI of 34.2 Head exam was generally normal. There was no scleral icterus or corneal arcus. Mucous membranes were moist. Neck was supple and without jugular venous distension, thyromegaly, or carotid bruits. Carotids were easily palpable bilaterally. There was no adenopathy. Cardiac exam revealed the PMI to be normally situated and sized. The rhythm was regular and no extrasystoles were noted during several minutes of auscultation. The first and second heart sounds were normal and physiologic splitting of the second heart sound was noted. There were no murmurs, rubs, clicks, or gallops. Lungs: Normal expansion with equal air entry. Clear to auscultation Abdomen: Soft, obese, nontender, nondistended. Extremities: Normal skin color and turgor. No cyanosis, rash, ulceration, clubb ing, or edema. Radial and pedal pulses are 2/4 bilaterally. Neurologically, the patient is awake and alert and the patient does not have any focal neurological deficit. Cranial nerves are essentially intact. Examination of the skin revealed no evidence of significant rashes, suspicious appearing nevi or other concerning lesions. - Labs CBC & Chem 7: 09/18/20 03:44 09/18/20 03:44 Labs: Abnormal Lab Results - Last 24 Hours (Table) 09/17/20 09/17/20 09/17/20 Range/Units 11:38 16:12 16:30 WBC (3.8-10.6) k/uL RBC (4.30-5.90) m/uL Hgb (13.0-17.5) gm/dL Hct (39.0-53.0) % RDW (11.5-15.5) % Neutrophils # (1.3-7.7) k/uL Lymphocytes # (1.0-4.8) k/uL APTT (22.0-30.0) sec ABG pCO2 31 L (35-45) mmHg ABG pO2 113 H (83-108) mmHg ABG O2 Saturation 98.3 H (94-97) % Chloride (98-107) mmol/L BUN (9-20) mg/dL Glucose (74-99) mg/dL POC Glucose (mg/dL) (75-99) mg/dL Plasma Lactic Acid Nicholas 2.4 H* (0.7-2.0) mmol/L Calcium (8.4-10.2) mg/dL Procalcitonin 0.16 H (0.02-0.09) ng/mL 09/17/20 09/17/20 09/17/20 Range/Units 18:29 18:59 22:52 WBC (3.8-10.6) k/uL RBC (4.30-5.90) m/uL Hgb (13.0-17.5) gm/dL Hct (39.0-53.0) % RDW (11.5-15.5) % Neutrophils # (1.3-7.7) k/uL Lymphocytes # (1.0-4.8) k/uL APTT >200.0 H* (22.0-30.0) sec ABG pCO2 (35-45) mmHg ABG pO2 (83-108) mmHg ABG O2 Saturation (94-97) % Chloride (98-107) mmol/L BUN (9-20) mg/dL Glucose (74-99) mg/dL POC Glucose (mg/dL) 139 H 182 H (75-99) mg/dL Plasma Lactic Acid Nicholas (0.7-2.0) mmol/L Calcium (8.4-10.2) mg/dL Procalcitonin (0.02-0.09) ng/mL 09/18/20 09/18/20 09/18/20 Range/Units 03:44 03:44 03:44 WBC 15.2 H (3.8-10.6) k/uL RBC 4.26 L (4.30-5.90) m/uL Hgb 12.4 L (13.0-17.5) gm/dL Hct 35.6 L (39.0-53.0) % RDW 17.5 H (11.5-15.5) % Neutrophils # 13.5 H (1.3-7.7) k/uL Lymphocytes # 0.7 L (1.0-4.8) k/uL APTT 125.6 H* (22.0-30.0) sec ABG pCO2 (35-45) mmHg ABG pO2 (83-108) mmHg ABG O2 Saturation (94-97) % Chloride 108 H (98-107) mmol/L BUN 24 H (9-20) mg/dL Glucose 131 H (74-99) mg/dL POC Glucose (mg/dL) (75-99) mg/dL Plasma Lactic Acid Nicholas (0.7-2.0) mmol/L Calcium 8.2 L (8.4-10.2) mg/dL Procalcitonin (0.02-0.09) ng/mL 09/18/20 09/18/20 09/18/20 Range/Units 06:13 11:33 12:05 WBC (3.8-10.6) k/uL RBC (4.30-5.90) m/uL Hgb (13.0-17.5) gm/dL Hct (39.0-53.0) % RDW (11.5-15.5) % Neutrophils # (1.3-7.7) k/uL Lymphocytes # (1.0-4.8) k/uL APTT 40.2 H (22.0-30.0) sec ABG pCO2 (35-45) mmHg ABG pO2 (83-108) mmHg ABG O2 Saturation (94-97) % Chloride (98-107) mmol/L BUN (9-20) mg/dL Glucose (74-99) mg/dL POC Glucose (mg/dL) 139 H 139 H (75-99) mg/dL Plasma Lactic Acid Nicholas (0.7-2.0) mmol/L Calcium (8.4-10.2) mg/dL Procalcitonin (0.02-0.09) ng/mL Microbiology - Last 24 Hours (Table) 09/17/20 09:47 Blood Culture - Preliminary Blood No Growth after 24 hours Assessment and Plan Plan: 1 acute hypoxic respiratory failure and the patient is currently on a BiPAP at a pressure of 14/7 cm of water with an FiO2 of 100%. The patient's respiratory failure is multifactorial. The patient has Covid 19 related pneumonia and bilateral pulmonary embolism both contributing to this acute hypoxic respiratory failure 2 acute bilateral pulmonary embolism and a previous refer to the CT angios and the patient has a RV strain pattern. 3 acute bilateral Covid 19 related pneumonia with minimal groundglass changes bilaterally 4 obstructive sleep apnea maintained on CPAP on outpatient basis 5 coronary artery disease 6 hypertension 7 hyperlipidemia 8 previous history of skin cancer of a basal cell carcinoma type 9 acute lactic acidosis, improved and the patient also had anion gap metabolic acidosis 10 leukocytosis Plan IV heparin, seen IV heparin for another 24 hours 2-D echocardiogram to evaluate pulmonary hypertension and RV dysfunction and the patient's LV function is mildly impaired with an ejection fraction of 4045% and a pulmonary artery pressures around 47 We will hold off on Ekos The BiPAP has been discontinued and the patient is currently on 8 L of oxygen by nasal cannula Complete a course of Decadron 6 mg by mouth daily , extend to a ten-day course We'll continue to follow. Doppler of the lower extremities are negative for now. IV fluids to KVO.
[2020-09-18] MEDS: HEPARIN SODIUM 1,000 UN/ML (10ML VL) IV PRN ×2 (12:48→20:04)
[2020-09-18 16:55] LABS: Glucose,Whole Blood 166 mg/dL (75-99)
[2020-09-18 20:03] LABS: Hemoglobin A1C 5.4 % (4.0-6.0)
[2020-09-18] MEDS: ATORVASTATIN 80 MG TAB PO SCH (20:04)
[2020-09-18 20:23] LABS: Glucose,Whole Blood 158 mg/dL (75-99)
--- NOTE | 2020-09-18 23:41 | P.PN ---
Subjective Progress Note Date: 09/18/20 Patient is a 70-year-old male with a known history of coronary artery disease remote, CABG, basal cell cancer, hypertension, hyperlipidemia, obstructive sleep apnea presents to ER due to worsening shortness of breath. Patient denies any complaints of chest pain. Generalized weakness and no complaints of dizziness or lightheadedness. No fever no chills. No nausea vomiting or abdominal pain or diarrhea. Patient is hard of hearing and is also on BiPAP. Patient was tested positive for COVID-19 infection on 09/04/2020 at [facility] in [place]. Patient was recently admitted to the hospital from 09/10/2020 to 09/11/2020 due to hypoxic respiratory failure and was not requiring oxygen upon discharge. Patient was discharged home on Decadron 6 mg daily. Patient has been having increased shortness of breath this morning. Patient was brought to the hospital by EMS. In the ER patient was found to be in hypoxic respiratory failure and was placed on BiPAP. Patient was found to have elevated D-dimer level 23.28. CT angio of the chest was done which showed bilateral diffuse pulmonary acute emboli beginning at the level of main pulmonary artery bilaterally and extending into the secondary and distal branches. Slightly elevated right ventricular left-ventricular ratio suggest mild RV strain. Widespread scattered abdominal gassiness bilaterally correlate for pneumonitis including viral pneumonitis. Laboratory data showed WBC 20.9 hemoglobin 14.4 lymphocytes 1.25 and lactic acid level was 8.6 on admission and blood sugar 292 troponin less than 0.012 ABG showed pH of 7.43, PCO2 31 PO2 133 EKG showed right bundle branch block. 09/18/2020 Patient is currently lying in the bed currently of BiPAP. Saturating well on oxygen 8 L via nasal cannula. Patient is being continued on heparin drip. Ech ocardiogram showed mild systolic dysfunction ejection fraction 40 to 45%. there was segmental wall motion abnormalities on the left, RV was moderately dilated and the pulmonary artery pressure was 47. There was evidence of some moderate impairment of the RV function. Blood pressure is stable. Vascular surgery recommends no intervention at this time. Laboratory showed WBC 15.2 hemoglobin 12.4 and platelets 213 BUN 24 creatinine 0.85 and A1c 5.4 and calcium 8.2 Current medications reviewed. Objective - Vital Signs Vital signs: Vital Signs Temp 98.4 F 09/18/20 16:00 Pulse 63 09/18/20 16:00 Resp 18 09/18/20 16:00 BP 120/61 09/18/20 16:00 Pulse Ox 97 09/18/20 16:34 Intake & Output 09/18/20 09/18/20 09/19/20 06:59 18:59 06:59 Intake Total 813.612 5329.144 Output Total 350 800 Balance -79.386 676.144 Weight 108 kg Intake: IV 20 111.8 Heparin Sod,Pork in 0.45% 111.8 NaCl 25,000 unit In 0.45 % NaCl 1 250ml.bag @ 18 UNITS/KG/HR 19.44 mls/hr IV .[id number] [facility] Rx#: [id number] Invasive Line 1 10 Invasive Line 2 10 Intake, IV Titration 250.614 888.344 Amount Heparin Sod,Pork in 0.45% 250.614 88.344 NaCl 25,000 unit In 0.45 % NaCl 1 250ml.bag @ 18 UNITS/KG/HR 19.44 mls/hr IV .[id number] [facility] Rx#: [id number] Sodium Chloride 0.9% 1, 800 000 ml @ 20 mls/hr IV . Q24H [facility] Rx#:[id number] Oral 476 Output: Urine 350 800 Other: Voiding Method Urinal # Voids 1 # Bowel Movements 0 - Exam PHYSICAL EXAMINATION: Patient is lying in the bed comfortably, no acute distress, awake alert and oriented.. HEENT: Normocephalic. Neck is supple. Pupils reactive. Nostrils clear. Oral cavity is moist. Ears reveal no drainage. Neck reveals no JVD, carotid bruits, or thyromegaly. CHEST EXAMINATION: Trachea is central. Symmetrical expansion. Lung johnson clear to auscultation and percussion. CARDIAC: Normal S1, S2 with no gallops. No murmurs ABDOMEN: Soft. Bowel sounds normal. No organomegaly. No abdominal bruits. Extremities: reveal no edema. No clubbing or cyanosis Neurologically awake, alert, oriented x3 with well-coordinated movements. No focal deficits noted Skin: No rash or skin lesions. Psychiatric: Coperative. Nonsuicidal Musculoskeletal: No joint swelling or deformity. Normal range of motion. - Labs CBC & Chem 7: 09/18/20 03:44 09/18/20 03:44 Labs: Abnormal Lab Results - Last 24 Hours (Table) 09/17/20 09/17/20 09/18/20 Range/Units 16:12 22:52 03:44 WBC 15.2 H (3.8-10.6) k/uL RBC 4.26 L (4.30-5.90) m/uL Hgb 12.4 L (13.0-17.5) gm/dL Hct 35.6 L (39.0-53.0) % RDW 17.5 H (11.5-15.5) % Neutrophils # 13.5 H (1.3-7.7) k/uL Lymphocytes # 0.7 L (1.0-4.8) k/uL APTT (22.0-30.0) sec Chloride (98-107) mmol/L BUN (9-20) mg/dL Glucose (74-99) mg/dL POC Glucose (mg/dL) 182 H (75-99) mg/dL Calcium (8.4-10.2) mg/dL Procalcitonin 0.16 H (0.02-0.09) ng/mL 09/18/20 09/18/20 09/18/20 Range/Units 03:44 03:44 06:13 WBC (3.8-10.6) k/uL RBC (4.30-5.90) m/uL Hgb (13.0-17.5) gm/dL Hct (39.0-53.0) % RDW (11.5-15.5) % Neutrophils # (1.3-7.7) k/uL Lymphocytes # (1.0-4.8) k/uL APTT 125.6 H* (22.0-30.0) sec Chloride 108 H (98-107) mmol/L BUN 24 H (9-20) mg/dL Glucose 131 H (74-99) mg/dL POC Glucose (mg/dL) 139 H (75-99) mg/dL Calcium 8.2 L (8.4-10.2) mg/dL Procalcitonin (0.02-0.09) ng/mL 09/18/20 09/18/20 09/18/20 Range/Units 11:33 12:05 15:18 WBC (3.8-10.6) k/uL RBC (4.30-5.90) m/uL Hgb (13.0-17.5) gm/dL Hct (39.0-53.0) % RDW (11.5-15.5) % Neutrophils # (1.3-7.7) k/uL Lymphocytes # (1.0-4.8) k/uL APTT 40.2 H 45.4 H (22.0-30.0) sec Chloride (98-107) mmol/L BUN (9-20) mg/dL Glucose (74-99) mg/dL POC Glucose (mg/dL) 139 H (75-99) mg/dL Calcium (8.4-10.2) mg/dL Procalcitonin (0.02-0.09) ng/mL 09/18/20 09/18/20 Range/Units 16:53 19:06 WBC (3.8-10.6) k/uL RBC (4.30-5.90) m/uL Hgb (13.0-17.5) gm/dL Hct (39.0-53.0) % RDW (11.5-15.5) % Neutrophils # (1.3-7.7) k/uL Lymphocytes # (1.0-4.8) k/uL APTT 39.5 H (22.0-30.0) sec Chloride (98-107) mmol/L BUN (9-20) mg/dL Glucose (74-99) mg/dL POC Glucose (mg/dL) 166 H (75-99) mg/dL Calcium (8.4-10.2) mg/dL Procalcitonin (0.02-0.09) ng/mL Microbiology - Last 24 Hours (Table) 09/17/20 09:47 Blood Culture - Preliminary Blood No Growth after 24 hours Assessment and Plan Assessment: Acute hypoxic respiratory failure requiring BiPAP secondary to acute bilateral diffuse pulmonary emboli.Currently off BiPAP. On 8 L oxygen via nasal cannula. Acute bilateral PE with mild RV strain Severe lactic acidosis 8.6 due to hypoxia improving now Acute bilateral Covid 19 pneumonia with groundglass opacities bilaterally. COVID-19 diagnosed, 09/04/2020 Obstructive sleep apnea on CPAP at home Coronary disease history of CABG Basal cell carcinoma of the skin s/p removal Hypertension Hyperlipidemia Leukocytosis likely due to steroid use. Rule out infection Hyperglycemia likely due to steroids. A1c level was ordered DVT prophylaxis patient is already on heparin drip. Plan: Patient was placed on BiPAP and started on heparin drip. Currently off BiPAP. On 8 L oxygen via nasal cannula.y. Vascular surgery was consulted for possible intervention including EKOS. No intervention was recommended. Patient is hemodynamically stable. Lactic acid level is trending down. IV fluids will be discontinued patient is tolerating oral diet. Patient will be continued on dexamethasone and multivitamins and oxygen supplementation. Insulin sliding scale and follow-up A1c level 5.4 2D echocardiogram report reviewed. and lower extremity duplex scan -ve dvt. Pulmonary is on board and further recommendations based on clinical course. Pr ognosis guarded at this time. Time with Patient: Greater than 30
[2020-09-19] MEDS: HEPARIN SOD,PORK IN 0.45% NACL 25,000 UNIT in 0.45% NACL 1 250ML.BAG IV SCH ×2 (03:44→10:47)
[2020-09-19] MEDS: HEPARIN SODIUM 1,000 UN/ML (10ML VL) IV PRN (03:46)
[2020-09-19 06:27] LABS: Glucose,Whole Blood 145 mg/dL (75-99)
[2020-09-19] MEDS: INSULIN ASPART (NovoLOG) 100 UNIT/ML VIAL SQ SCH ×4 (06:43→20:33)
[2020-09-19] MEDS: ZINC SULFATE 220 MG CAP PO SCH (08:24)
[2020-09-19] MEDS: dexAMETHasone 2 MG TAB PO SCH (08:24)
[2020-09-19] MEDS: SERTRALINE 100 MG TAB PO SCH (08:24)
[2020-09-19] MEDS: ASPIRIN 81 MG PO SCH (08:24)
[2020-09-19] MEDS: ASCORBIC ACID 500 MG TAB PO SCH ×2 (08:25→20:31)
--- NOTE | 2020-09-19 10:30 | P.PN ---
Subjective Progress Note Date: 09/19/20 Principal diagnosis: Pulmonary embolism She is seen and examined lying in bed. His respiratory status is improved, he is on 7 L high flow nasal cannula. He states his breathing is better and shortness of breath has improved. He is denying any chest pain. States he has some chest congestion and cough. He remains on IV heparin drip. Plan is for transition to oral anticoagulations today. Objective - Vital Signs Vital signs: Vital Signs Temp 96.6 F L 09/19/20 08:00 Pulse 83 09/19/20 08:00 Resp 20 09/19/20 08:00 BP 114/55 09/19/20 08:00 Pulse Ox 96 09/19/20 08:00 Intake & Output 09/18/20 09/19/20 09/19/20 18:59 06:59 18:59 Intake Total 1476.144 254.912 240 Output Total 800 700 300 Balance 676.144 -445.088 -60 Weight 108 kg Intake: IV 111.8 20 Heparin Sod,Pork in 0.45% 111.8 NaCl 25,000 unit In 0.45 % NaCl 1 250ml.bag @ 18 UNITS/KG/HR 19.44 mls/hr IV .[id number] JENNIFER Rx#: [id number] Invasive Line 1 10 Invasive Line 2 10 Intake, IV Titration 888.344 234.912 Amount Heparin Sod,Pork in 0.45% 88.344 234.912 NaCl 25,000 unit In 0.45 % NaCl 1 250ml.bag @ 18 UNITS/KG/HR 19.44 mls/hr IV .[id number] JENNIFER Rx#: [id number] Sodium Chloride 0.9% 1, 800 000 ml @ 20 mls/hr IV . Q24H JENNIFER Rx#:[id number] Oral 476 240 Output: Urine 800 700 300 Other: Voiding Method Urinal # Voids 1 - Exam General appearance: The patient is alert, oriented, appears in no acute distress. HET: Head is normocephalic and atraumatic. Neck: Supple without lymphadenopathy. Trachea midline. Heart: S1 S2. Regular rate and rhythm. Lungs: Clear to auscultation. Abdomen: Soft, nontender, nondistended. Extremities: Normal skin color and turgor. No cyanosis, rash, ulceration, club conner, or edema. Radial and pedal pulses are 2/4 bilaterally. Neurological: No focal deficits. Alert and oriented 3.. - Labs CBC & Chem 7: 09/18/20 03:44 09/18/20 03:44 Labs: Abnormal Lab Results - Last 24 Hours (Table) 09/18/20 09/18/20 09/18/20 Range/Units 11:33 12:05 15:18 APTT 40.2 H 45.4 H (22.0-30.0) sec POC Glucose (mg/dL) 139 H (75-99) mg/dL 09/18/20 09/18/20 09/18/20 Range/Units 16:53 19:06 20:21 APTT 39.5 H (22.0-30.0) sec POC Glucose (mg/dL) 166 H 158 H (75-99) mg/dL 09/19/20 Range/Units 06:26 APTT (22.0-30.0) sec POC Glucose (mg/dL) 145 H (75-99) mg/dL Microbiology - Last 24 Hours (Table) 09/17/20 09:47 Blood Culture - Preliminary Blood No Growth after 24 hours Assessment and Plan Assessment: 1. Bilateral pulmonary embolism 2. Covid-19 pneumonitis 3. Obesity 4. History hypertension 5. History hyperlipidemia 6. History of coronary artery disease, status post CABG Plan: 1. Symptomatic and supportive care 2. Transition to oral anticoagulation today 3. Echocardiogram ordered and reviewed 4. Venous Doppler ultrasound bilateral lower extremities ordered and reviewed 5. Pulmonology on consultation, appreciate their recommendations 6. Continue medical management Thank you for this consultation, will continue to follow The impression and plan of care has been dictated as directed. Dr. Suarez I performed a history and examination of this patient, discussed the same with the dictator. I agree with the dictator's note ,documented as a scribe. Any additional findings or plans will be noted.
--- NOTE | 2020-09-19 12:03 | P.PN ---
Subjective Progress Note Date: 09/19/20 70-year-old male patient, presented to the hospital because of shortness of breath. The patient was recently admitted for COVID 19 related pneumonia/infection and the patient was discharged home. The patient was hospitalized between 09/10/2020 and 09/11/2020 and the patient was not requiring oxygen and the patient was discharged home on Decadron. The patient this morning had some increased shortness of breath. He was found to be hypoxic by the EMS. He was brought into the emergency room with a CT angios gram of the chest was done and it shows diffuse bilateral pulmonary embolism with clots be ginning at the level of the main pulmonary artery bilaterally and extending into the secondary and distal branches. The patient also had elevated RV/LV ratio consistent with right ventricular strain pattern. There was also bilateral ground glass pulmonary infiltrates consistent with Covid 19 related pneumonia. The patient also had a Doppler of the lower extremity that showed no evidence of any DVT. The patient is currently on IV heparin. The patient's d-dimer was at 23.2. Initial lactic acid level was 8.6 and subsequently dropped down to 2.4, and the patient a component of anion gap metabolic acidosis with a serum bicarb of 14 and a gap of 16. Creatinine is at 1.1, liver function tests were normal, troponin was less than 0.01, and the white cell count was 20.9 with a hemoglobin of 14.4 and a platelet count of 253. Was found to be quite short of breath and patient was placed on a BiPAP at a pressure of 14/7 cm of water with an FiO2 of 70%. His heart rate is around mid 70s in the most recent BP is 98/68. EKG showing a right bundle branch block pattern. Patient is currently on IV heparin. On today's evaluation of 09/18/2020, the patient was taken off the BiPAP and he was weaned off the apices of oxygen by nasal cannula. His resting comfortably in bed. Has no new complaints. No chest pain. No shortness of breath. Remains on IV heparin. Atelectatic discussion with the vascular surgeon and we opted not to use the intra-arterial thrombolytic system as the patient's condition was stable and the clot burden was not great and the patient was clinically improving. He is hemodynamically stable. His current blood pressure is 105/62. No tachycardia. Echocardiogram was also done and the patient had preserved LV with some mild dysfunction and ejection fraction of 40-45%, there was segmental wall motion abnormalities on the left, RV was moderately dilated and the pulmonary artery pressure was 47. There was evidence of some moderate impairment of the RV function. In any rate, the patient is doing well now 09/19/2020 on seeing the patient for a follow-up. Patient is still on a heparin and the patient is going to be transitioned to long-term anticoagulation with oral anticoagulants. He is currently on 6 L of oxygen by nasal cannula. No new complaints otherwise for now. I discussed the case with the vascular surgery team and we decided to proceed with long-term anticoagulation data support analyst and stopped IV heparin. The patient is otherwise doing well. His PTT is therapeutic for now. No chest pain. He has been weaned down to 6 L his current pulse ox is 96% and I'm hoping that we can further weaning his FiO2 down Objective - Vital Signs Vital signs: Vital Signs Temp 96.6 F L 09/19/20 08:00 Pulse 83 09/19/20 08:00 Resp 20 09/19/20 08:00 BP 114/55 09/19/20 08:00 Pulse Ox 96 09/19/20 08:00 Intake & Output 09/18/20 09/19/20 09/19/20 18:59 06:59 18:59 Intake Total 1476.144 254.912 360.314 Output Total 800 700 300 Balance 676.144 -445.088 60.314 Weight 108 kg Intake: IV 111.8 20 Heparin Sod,Pork in 0.45% 111.8 NaCl 25,000 unit In 0.45 % NaCl 1 250ml.bag @ 18 UNITS/KG/HR 19.44 mls/hr IV .[id number] JENNIFER Rx#: [id number] Invasive Line 1 10 Invasive Line 2 10 Intake, IV Titration 888.344 234.912 120.314 Amount Heparin Sod,Pork in 0.45% 88.344 234.912 120.314 NaCl 25,000 unit In 0.45 % NaCl 1 250ml.bag @ 18 UNITS/KG/HR 19.44 mls/hr IV .[id number] JENNIFER Rx#: [id number] Sodium Chloride 0.9% 1, 800 000 ml @ 20 mls/hr IV . Q24H JENNIFER Rx#:[id number] Oral 476 240 Output: Urine 800 700 300 Other: Voiding Method Urinal # Voids 1 - Exam General appearance: The patient is alert, oriented, appears in no acute distress at this time, on 6 liters and the patient carries a BMI of 34.2 Head exam was generally normal. There was no scleral icterus or corneal arcus. Mucous membranes were moist. Neck was supple and without jugular venous distension, thyromegaly, or carotid bruits. Carotids were easily palpable bilaterally. There was no adenopathy. Cardiac exam revealed the PMI to be normally situated and sized. The rhythm was regular and no extrasystoles were noted during several minutes of auscultation. The first and second heart sounds were normal and physiologic splitting of the second heart sound was noted. There were no murmurs, rubs, clicks, or gallops. Lungs: Normal expansion with equal air entry. Clear to auscultation Abdomen: Soft, obese, nontender, nondistended. Extremities: Normal skin color and turgor. No cyanosis, rash, ulceration, clubbing, or edema. Radial and pedal pulses are 2/4 bilaterally. Neurologically, the patient is awake and alert and the patient does not have any focal neurological deficit. Cranial nerves are essentially intact. Examination of the skin revealed no evidence of significant rashes, suspicious appearing nevi or other concerning lesions. - Labs CBC & Chem 7: 09/18/20 03:44 09/18/20 03:44 Labs: Abnormal Lab Results - Last 24 Hours (Table) 09/18/20 09/18/20 09/18/20 Range/Units 11:33 12:05 15:18 APTT 40.2 H 45.4 H (22.0-30.0) sec POC Glucose (mg/dL) 139 H (75-99) mg/dL 09/18/20 09/18/20 09/18/20 Range/Units 16:53 19:06 20:21 APTT 39.5 H (22.0-30.0) sec POC Glucose (mg/dL) 166 H 158 H (75-99) mg/dL 09/19/20 09/19/20 Range/Units 06:26 09:29 APTT 78.5 H (22.0-30.0) sec POC Glucose (mg/dL) 145 H (75-99) mg/dL Microbiology - Last 24 Hours (Table) 09/17/20 09:47 Blood Culture - Preliminary Blood No Growth after 24 hours Assessment and Plan Plan: 1 acute hypoxic respiratory failure and the patient is currently on 6 liters The patient has Covid 19 related pneumonia and bilateral pulmonary embolism both contributing to this acute hypoxic respiratory failure 2 acute bilateral pulmonary embolism and a previous refer to the CT angios and the patient has a RV strain pattern. 3 acute bilateral Covid 19 related pneumonia with minimal groundglass changes bilaterally 4 obstructive sleep apnea maintained on CPAP on outpatient basis 5 coronary artery disease 6 hypertension 7 hyperlipidemia 8 previous history of skin cancer of a basal cell carcinoma type 9 acute lactic acidosis, improved and the patient also had anion gap metabolic acidosis 10 leukocytosis Plan Stop the IV heparin and put the patient on Eliquis 10 mg by mouth twice a day 2-D echocardiogram to evaluate pulmonary hypertension and RV dysfunction and the patient's LV function is mildly impaired with an ejection fraction of 4045% and a pulmonary artery pressures around 47 Wean down the FiO2 to maintain saturation above 90% currently on 6 L Complete a course of Decadron 6 mg by mouth daily , extend to a ten-day course We'll continue to follow. Doppler of the lower extremities are negative for now. IV fluids to KVO. Will follow
[2020-09-19] MEDS: ALBUTEROL HFA INHALER INHALATION PRN ×2 (12:07→20:05)
[2020-09-19 12:25] LABS: Glucose,Whole Blood 162 mg/dL (75-99)
[2020-09-19] MEDS: APIXABAN 5 MG TAB PO SCH ×2 (12:37→20:32)
[2020-09-19 17:11] LABS: Glucose,Whole Blood 155 mg/dL (75-99)
[2020-09-19] MEDS: ATORVASTATIN 80 MG TAB PO SCH (20:31)
[2020-09-19] MEDS: SODIUM CHLORIDE 0.9% 1,000 ML IV SCH (20:33)
[2020-09-19 20:45] LABS: Glucose,Whole Blood 165 mg/dL (75-99)
--- NOTE | 2020-09-19 21:23 | P.PN ---
Subjective Progress Note Date: 09/19/20 Principal diagnosis: Acute pulmonary embolism with right ventricular strain with recent Covid infection Patient is a 70-year-old male with a known history of coronary artery disease remote, CABG, basal cell cancer, hypertension, hyperlipidemia, obstructive sleep apnea presents to ER due to worsening shortness of breath. Patient denies any complaints of chest pain. Generalized weakness and no complaints of dizziness or lightheadedness. No fever no chills. No nausea vomiting or abdominal pain or diarrhea. Patient is hard of hearing and is also on BiPAP. Patient was tested positive for COVID-19 infection on 09/04/2020 at [facility] in [place]. Patient was recently admitted to the hospital from 09/10/2020 to 09/11/2020 due to hypoxic respiratory failure and was not requiring oxygen upon discharge. Patient was discharged home on Decadron 6 mg daily. Patient has been having increased shortness of breath this morning. Patient was brought to the hospital by EMS. In the ER patient was found to be in hypoxic respiratory failure and was placed on BiPAP. Patient was found to have elevated D-dimer level 23.28. CT angio of the chest was done which showed bilateral diffuse pulmonary acute emboli beginning at the level of main pulmonary artery bilaterally and extending into the secondary and distal branches. Slightly elevated right ventricular lef t-ventricular ratio suggest mild RV strain. Widespread scattered abdominal gassiness bilaterally correlate for pneumonitis including viral pneumonitis. Laboratory data showed WBC 20.9 hemoglobin 14.4 lymphocytes 1.25 and lactic acid level was 8.6 on admission and blood sugar 292 troponin less than 0.012 ABG showed pH of 7.43, PCO2 31 PO2 133 EKG showed right bundle branch block. 09/18/2020 Patient is currently lying in the bed currently of BiPAP. Saturating well on oxygen 8 L via nasal cannula. Patient is being continued on heparin drip. Echocardiogram showed mild systolic dysfunction ejection fraction 40 to 45%. there was segmental wall motion abnormalities on the left, RV was moderately dilated and the pulmonary artery pressure was 47. There was evidence of some moderate impairment of the RV function. Blood pressure is stable. Vascular surgery recommends no intervention at this time. Laboratory showed WBC 15.2 hemoglobin 12.4 and platelets 213 BUN 24 creatinine 0.85 and A1c 5.4 and calcium 8.2 09/19/2020 Patient is currently resting in the bed. Requiring 7 L high flow oxygen which is being titrated down to 6 L now. No complaints of chest pain. Patient is being continued on IV heparin which is being transitioned to Eliquis. Discussed with vascular surgery and pulmonary team. No complaints of nausea vomiting or abdominal pain or diarrhea. No cough or sputum production. No hematemesis or melena. Blood pressure is 107/63 and pulse is 65 respiration 20 and pulse ox 98% on 7 L oxygen via nasal cannula. Current medications reviewed. Objective - Vital Signs Vital signs: Vital Signs Temp 98.4 F 09/19/20 12:13 Pulse 65 09/19/20 12:13 Resp 20 09/19/20 12:13 BP 107/63 09/19/20 12:13 Pulse Ox 98 09/19/20 12:13 Intake & Output 09/18/20 09/19/20 09/19/20 18:59 06:59 18:59 Intake Total 1476.144 254.912 857.164 Output Total 800 700 800 Balance 676.144 -445.088 57.164 Weight 108 kg Intake: IV 111.8 20 96.85 Heparin Sod,Pork in 0.45% 111.8 96.85 NaCl 25,000 unit In 0.45 % NaCl 1 250ml.bag @ 18 UNITS/KG/HR 19.44 mls/hr IV .[id number] JENNIFER Rx#: [id number] Invasive Line 1 10 Invasive Line 2 10 Intake, IV Titration 888.344 234.912 280.314 Amount Heparin Sod,Pork in 0.45% 88.344 234.912 120.314 NaCl 25,000 unit In 0.45 % NaCl 1 250ml.bag @ 18 UNITS/KG/HR 19.44 mls/hr IV .[id number] JENNIFER Rx#: [id number] Sodium Chloride 0.9% 1, 800 160 000 ml @ 20 mls/hr IV . Q24H JENNIFER Rx#:[id number] Oral 476 480 Output: Urine 800 700 800 Other: Voiding Method Urinal # Voids 1 - Exam PHYSICAL EXAMINATION: Patient is lying in the bed comfortably, no acute distress, awake alert and oriented.. HEENT: Normocephalic. Neck is supple. Pupils reactive. Nostrils clear. Oral cavity is moist. Ears reveal no drainage. Neck reveals no JVD, carotid bruits, or thyromegaly. CHEST EXAMINATION: Trachea is central. Symmetrical expansion. Lung johnson clear to auscultation and percussion. CARDIAC: Normal S1, S2 with no gallops. No murmurs ABDOMEN: Soft. Bowel sounds normal. No organomegaly. No abdominal bruits. Extremities: reveal no edema. No clubbing or cyanosis Neurologically awake, alert, oriented x3 with well-coordinated movements. No focal deficits noted Skin: No rash or skin lesions. Psychiatric: Coperative. Nonsuicidal Musculoskeletal: No joint swelling or deformity. Normal range of motion. - Labs CBC & Chem 7: 09/18/20 03:44 09/18/20 03:44 Labs: Abnormal Lab Results - Last 24 Hours (Table) 09/18/20 09/18/20 09/18/20 Range/Units 15:18 16:53 19:06 APTT 45.4 H 39.5 H (22.0-30.0) sec POC Glucose (mg/dL) 166 H (75-99) mg/dL Troponin I (0.000-0.034) ng/mL 09/18/20 09/19/20 09/19/20 Range/Units 20:21 06:26 09:29 APTT 78.5 H (22.0-30.0) sec POC Glucose (mg/dL) 158 H 145 H (75-99) mg/dL Troponin I (0.000-0.034) ng/mL 09/19/20 09/19/20 Range/Units 11:28 12:23 APTT (22.0-30.0) sec POC Glucose (mg/dL) 162 H (75-99) mg/dL Troponin I 0.171 H* (0.000-0.034) ng/mL Microbiology - Last 24 Hours (Table) 09/17/20 09:47 Blood Culture - Preliminary Blood No Growth after 48 hours Assessment and Plan Assessment: Acute hypoxic respiratory failure requiring BiPAP secondary to acute bilateral diffuse pulmonary emboli.Currently off BiPAP. On 7 L oxygen via nasal cannula. Acute bilateral PE with mild RV strain Severe lactic acidosis 8.6 due to hypoxia improving now Acute bilateral Covid 19 pneumonia with groundglass opacities bilaterally. COVID-19 diagnosed, 09/04/2020 Obstructive sleep apnea on CPAP at home Coronary disease history of CABG Basal cell carcinoma of the skin s/p removal Hypertension Hyperlipidemia Leukocytosis likely due to steroid use. Rule out infection Hyperglycemia likely due to steroids. A1c level was ordered DVT prophylaxis patient is already on heparin drip. Plan: Patient was placed on BiPAP and started on heparin drip. Currently off BiPAP. On 8 L oxygen via nasal cannula.Heparin is being transitioned to Eliquis. Vascular surgery was consulted for possible intervention including EKOS. No intervention was recommended. Patient is hemodynamically stable. Lactic acid level is trending down. IV fluids will be discontinued patient is tolerating oral diet. Patient will be continued on dexamethasone and multivitamins and oxygen supplementation. Insulin sliding scale and follow-up A1c level 5.4 2D echocardiogram report reviewed. and lower extremity duplex scan -ve dvt. Pulmonary is on board and further recommendations based on clinical course. Pro gnosis guarded at this time. Time with Patient: Greater than 30
[2020-09-20 06:33] LABS: Glucose,Whole Blood 128 mg/dL (75-99)
[2020-09-20] MEDS: INSULIN ASPART (NovoLOG) 100 UNIT/ML VIAL SQ SCH ×2 (06:40→12:36)
[2020-09-20 08:36] LABS: African American GFR (CKD) >90 (>60 ml/min/1.73 sqM); Anion Gap 4 mmol/L; Blood Urea Nitrogen 24 mg/dL (9-20); Calcium 8.2 mg/dL (8.4-10.2); Carbon Dioxide 27 mmol/L (22-30); Chloride 105 mmol/L (98-107); Glucose 109 mg/dL (74-99); Non-African American GFR(CKD) 88 (>60 ml/min/1.73 sqM); Potassium 4.7 mmol/L (3.5-5.1); Sodium 136 mmol/L (137-145)
[2020-09-20 08:45] LABS: Anisocytosis Slight; Basophils % (A) 0 %; Eosinophils # (A) 0.1 k/uL (0-0.7); Eosinophils % (A) 1 %; HGB 12.1 gm/dL (13.0-17.5); Hyperchromasia Slight; Lymphocytes # (A) 0.7 k/uL (1.0-4.8); Lymphocytes % (A) 7 %; MCH 29.2 pg (25.0-35.0); MCHC 34.7 g/dL (31.0-37.0); Mean Platelet Volume 9.7; Monocytes # (A) 0.6 k/uL (0-1.0); Monocytes % (A) 6 %; Neutrophils # (A) 8.3 k/uL (1.3-7.7); Neutrophils % (A) 86 %; Platelet Count 198 k/uL (150-450); Poikilocytosis Moderate; RBC 4.17 m/uL (4.30-5.90); RDW 17.7 % (11.5-15.5); WBC 9.7 k/uL (3.8-10.6)
[2020-09-20] MEDS: ALBUTEROL HFA INHALER INHALATION PRN ×2 (08:49→12:20)
[2020-09-20] MEDS ORDERED: METOPROLOL TARTRATE 25 MG TAB PO SCH (09:00)
[2020-09-20 09:14] VITALS: PULSE 78; TEMP 98
[2020-09-20] MEDS: ASPIRIN 81 MG PO SCH (09:14)
[2020-09-20] MEDS: SERTRALINE 100 MG TAB PO SCH (09:14)
[2020-09-20] MEDS: dexAMETHasone 2 MG TAB PO SCH (09:14)
[2020-09-20] MEDS: ASCORBIC ACID 500 MG TAB PO SCH (09:14)
[2020-09-20] MEDS: ZINC SULFATE 220 MG CAP PO SCH (09:14)
[2020-09-20] MEDS: APIXABAN 5 MG TAB PO SCH (09:14)
--- NOTE | 2020-09-20 09:55 | P.CRDCN ---
History of Present Illness History of present illness: HISTORY OF PRESENTING ILLNESS This is a pleasant 70-year-old male past medical history significant for coronary artery disease status post four-vessel coronary artery bypass grafting, obstructive sleep apnea, hypertension, hyperlipidemia.. He follows in the office with Dr. Epstein. We have been asked to see in consultation for elevated troponin. Patient is seen and examined at bedside, no acute distress. He presents to the emergency department with worsening shortness of breath. Patient states he was exposed to covid-19 infected person and was tested positive at [facility] end of last month. He was recently hospitalized on 09/10/20-09/11/20 due to hypoxic respiratory failure, he recovered and was discharged. He had increased shortness of breath at home and his son was with him and called EMS. On admission, troponin was negative, D-dimer was elevated 23.28. CT chest revealed bilateral diffuse pulmonary acute embolism. Patient was started on a heparin drip and is now transitioned to PO eliquis. He does endorse having fever and chills at home. He denies chest pain, palpitations, shortness of breath, lower extremity edema, fatigue, weakness, lightheadedness, syncope. Denies history of Diabetes. Current home cardiac medications include atenolol 25 mg daily, atorvastatin 80 mg nightly, aspirin 81 mg daily. Laboratory data reviewed, Troponin 0.17, sodium 136, potassium 4.7, serum creatinine 0.85, BUN 24, hemoglobin 12.1, WBC 9.7, platelets 198. DIAGNOSTICS EKG reveals sinus tachycardia HR 130 with right bundle branch block, horizontal ST depression in the anterior lateral leads. Second EKG with sinus mechanism HR 97, no significant ST-T wave abnormalities. Prior EKG reveal sinus mechanism with right bundle branch block CT chest- bilateral diffuse pulmonary embolism beginning at the end of the main pulmonary arteries bilaterally and extending into the secondary distal branches. Slightly elevated right ventricular and left ventricular ratio suggested mild RV strain. Widespread scattered groundglass opacities bilaterally Most recent cardiac catheterization 11/2017- severe triple vessel CAD, patent HERRERA to LAD, patent saphenous vein graft to diagonal branch, patent saphenous vein graft to RCA, totally occluded saphenous vein graft to the OM. - medical management was recommended Echocardiogram 09/17/20: EF 40-45%, with wall motional abnormalities, RV is moderately dilated, RV systolic function is moderately impaired, trace AR, trace MR, mild TR, mild pulmonary hypertension, small pericardial effusion REVIEW OF SYSTEMS At the time of my exam: CONSTITUTIONAL: + fever or chills. CARDIOVASCULAR: +shortness of breath. Denies chest pain, orthopnea, PND or palpitations. RESPIRATORY: Denies cough. GASTROINTESTINAL: Denies abdominal pain, diarrhea, constipation, nausea or vomiting. MUSCULOSKELETAL: Denies myalgias. NEUROLOGIC: Denies numbness, tingling, headacbe or weakness. ENDOCRINE: +fatigue, Denies weight change, polydipsia or polyurina. GENITOURINARY: Denies burning, hematuria or urgency with micturation. HEMATOLOGIC: Denies history of anemia or bleeding. PHYSICAL EXAMINATION Blood pressure 124/70 heart rate 78 afebrile and maintaining oxygen saturation 96% on 3L nasal cannula . CONSTITUTIONAL: No apparent distress. HEENT: Head is normocephalic. Pupils are equal, round. Sclerae anicteric. Mucous membranes of the mouth are moist. No JVD. No carotid bruit. CHEST EXAMINATION: Lungs are diminished bilaterally. No chest wall tenderness is noted on palpation or with deep breathing. HEART EXAMINATION: Regular rate and rhythm. S1, S2 heard. No murmurs, gallops or rub. ABDOMEN: Soft, nontender. Positive bowel sounds. EXTREMITIES: 2+ peripheral pulses, no lower extremity edema and no calf tenderness. NEUROLOGIC EXAMINATION: Patient is awake, alert and oriented x3. ASSESSMENT Coronary artery disease status post four-vessel CABG Hypertension Hyperlipidemia Elevated troponin - most likely related to covid infection, PE and patient's hypercoagulated state due to covid that we have seen Covid-19 Acute hypoxic respiratory failure most likely related to covid-19 Acute bilateral pulmonary embolism with mild RV strain- currently on Eliquis Obstructive sleep apnea on CPAP at home PLAN Elevated troponin not indicative of acute coronary syndrome, most likely related to type II due to covid-19 infection, patient without any chest pain, EKG with no significant evidence of ischemia Will repeat troponin to see trend Restart beta mohsen- metoprolol tartrate 25mg BID From cardiology perspective no further cardiac testing at this time Further recommendations based on clinical course Nurse Practitioner note has been reviewed, I agree with a documented findings and plan of care. Patient was seen and examined. Past Medical History Past Medical History: Coronary Artery Disease (CAD), Cancer, Hearing Disorder / Deafness, Hyperlipidemia, Hypertension, Sleep Apnea/CPAP/BIPAP Additional Past Medical History / Comment(s): Pt tested covid + on 09/04/20 at [facility] in [place]. Pt recently admitted to [facility] on 09/10/20 with acute hypoxic respiratory failuer 2ndary to covid 19. Other hx: Basal cell skin cancer removald, SHEYLA with Cpap use, [place] bilaterally with L ear worse, occasional bilateral knee and low back pain. History of Any Multi-Drug Resistant Organisms: None Reported Past Surgical History: Appendectomy, Coronary Bypass/CABG, Heart Catheterization, Orthopedic Surgery Additional Past Surgical History / Comment(s): Basal cell skin cancer removals, left wrist fx with repair, 2012 CABG 4 vessel, lipoma removed r side neck, colonoscopies. Past Anesthesia/Blood Transfusion Reactions: No Reported Reaction Smoking Status: Former smoker - Past Family History Sister(s) Family Medical History: Blood Disorder, Deep Vein Thrombosis (DVT) Mother Family Medical History: Dementia Father History Unknown: Yes Medications and Allergies Home Medications Medication Instructions Recorded Confirmed Type Aspirin EC [Ecotrin Low Dose] 81 mg PO DAILY 09/23/17 09/17/20 History Atorvastatin Calcium [Lipitor] 80 mg PO HS 09/23/17 09/17/20 History Sertraline HCl [Zoloft] 150 mg PO DAILY 09/23/17 09/17/20 History atenoloL [Tenormin] 25 mg PO DAILY 09/23/17 09/17/20 History Albuterol Inhaler [Ventolin Hfa 2 puff INHALATION RT-Q6H PRN #1 09/11/20 09/17/20 Rx Inhaler] inhaler Ascorbic Acid [Vitamin C] 500 mg PO BID #30 tab 09/11/20 09/17/20 Rx Zinc Sulfate [Orazinc] 220 mg PO DAILY #20 cap 09/11/20 09/17/20 Rx dexAMETHasone ORAL [Hexadrol] 6 mg PO DAILY #7 tab 09/11/20 09/17/20 Rx Apixaban [Eliquis Starter Pack 0 mg PO DIRECTED 30 Days #1 pack 09/19/20 Rx (for VTE)] Allergies Allergy/AdvReac Type Severity Reaction Status Date / Time No Known Allergies Allergy Verified 09/17/20 08:53 Physical Exam Vitals: Vital Signs Temp Pulse Pulse Resp BP Pulse Ox 09/20/20 08:50 98 F 78 22 124/70 96 09/20/20 04:00 97.7 F 69 20 152/82 96 09/20/20 02:00 20 09/20/20 00:00 98.4 F 66 20 134/71 92 L 09/19/20 20:10 94 L 09/19/20 20:00 98.6 F 67 20 122/65 94 L 09/19/20 16:33 97.1 F L 64 20 123/67 96 09/19/20 12:13 98.4 F 65 20 107/63 98 09/19/20 12:10 99 Intake and Output 09/19/20 09/20/20 09/20/20 22:59 06:59 14:59 Intake Total 260 240 Output Total 500 1075 Balance -240 -1075 240 Intake: IV 20 Invasive Line 1 10 Invasive Line 2 10 Oral 240 240 Output: Urine 500 1075 Other: Voiding Method Urinal Urinal # Voids 1 Weight 107.7 kg Results 09/20/20 07:24 09/20/20 07:24 Cardiac Enzymes 09/19/20 Range/Units 11:28 Troponin I 0.171 H* (0.000-0.034) ng/mL Coagulation 09/19/20 Range/Units 09:29 APTT 78.5 H (22.0-30.0) sec CBC 09/20/20 Range/Units 07:24 WBC 9.7 (3.8-10.6) k/uL RBC 4.17 L (4.30-5.90) m/uL Hgb 12.1 L (13.0-17.5) gm/dL Hct 35.0 L (39.0-53.0) % Plt Count 198 (150-450) k/uL Comprehensive Metabolic Panel 09/20/20 Range/Units 07:24 Sodium 136 L (137-145) mmol/L Potassium 4.7 (3.5-5.1) mmol/L Chloride 105 (98-107) mmol/L Carbon Dioxide 27 (22-30) mmol/L BUN 24 H (9-20) mg/dL Creatinine 0.85 (0.66-1.25) mg/dL Glucose 109 H (74-99) mg/dL Calcium 8.2 L (8.4-10.2) mg/dL Current Medications Generic Name Dose Route Start Last Admin Trade Name Freq PRN Reason Stop Dose Admin Albuterol Sulfate 2 puff 09/17/20 16:15 09/20/20 08:49 Albuterol Hfa Inhaler INHALATION 2 puff RT-Q6H PRN Administration Shortness Of Breath Or Wheezing Apixaban 10 mg 09/19/20 12:15 09/20/20 09:14 Apixaban 5 Mg Tab PO 09/22/20 09:01 10 mg BID JENNIFER Administration Ascorbic Acid 500 mg 09/17/20 21:00 09/20/20 09:14 Ascorbic Acid 500 Mg Tab PO 500 mg BID JENNIFER Administration Aspirin 81 mg 09/18/20 09:00 09/20/20 09:14 Aspirin 81 Mg PO 81 mg DAILY JENNIFER Administration Atorvastatin Calcium 80 mg 09/17/20 21:00 09/19/20 20:31 Atorvastatin 80 Mg Tab PO 80 mg HS JENNIFER Administration Dexamethasone 6 mg 09/17/20 16:00 09/20/20 09:14 Dexamethasone 2 Mg Tab PO 6 mg DAILY JENNIFER Administration Sodium Chloride 1,000 mls @ 20 mls/hr 09/17/20 16:00 09/19/20 20:33 Saline 0.9% IV 20 mls/hr .Q24H JENNIFER Administration Insulin Aspart 0 unit 09/17/20 17:30 09/20/20 06:40 Insulin Aspart (Novolog) 100 Unit/Ml Vial SQ Not Given ACHS [facility] Protocol Metoprolol Tartrate 25 mg 09/20/20 09:00 09/20/20 09:14 Metoprolol Tartrate 25 Mg Tab PO 25 mg BID JENNIFER Administration Sertraline HCl 150 mg 09/18/20 09:00 09/20/20 09:14 Sertraline 100 Mg Tab PO 150 mg DAILY JENNIFER Administration Zinc Sulfate 220 mg 09/18/20 09:00 09/20/20 09:14 Zinc Sulfate 220 Mg Cap PO 220 mg DAILY JENNIFER Administration Intake and Output 09/19/20 09/20/20 09/20/20 22:59 06:59 14:59 Intake Total 260 240 Output Total 500 1075 Balance -240 -1075 240 Intake: IV 20 Invasive Line 1 10 Invasive Line 2 10 Oral 240 240 Output: Urine 500 1075 Other: Voiding Method Urinal Urinal # Voids 1 Weight 107.7 kg 09/20/20 07:24 09/20/20 07:24
--- NOTE | 2020-09-20 11:30 | P.PN ---
Subjective Progress Note Date: 09/20/20 Principal diagnosis: Pulmonary embolism Patient is seen and examined lying in bed. He looks well overall. No acute changes through the night. He was transitioned to Eliquis yesterday. His oxygen has had 2 L nasal cannula. He states his breathing is improved significantly. He denies any chest pain. Objective - Vital Signs Vital signs: Vital Signs Temp 98 F 09/20/20 08:50 Pulse 78 09/20/20 08:50 Resp 22 09/20/20 08:50 BP 124/70 09/20/20 08:50 Pulse Ox 96 09/20/20 08:50 Intake & Output 09/19/20 09/20/20 09/20/20 18:59 06:59 18:59 Intake Total 1097.164 20 240 Output Total 1050 1075 Balance 47.164 -1055 240 Weight 107.7 kg Intake: IV 96.85 20 Heparin Sod,Pork in 0.45% 96.85 NaCl 25,000 unit In 0.45 % NaCl 1 250ml.bag @ 18 UNITS/KG/HR 19.44 mls/hr IV .[id number] [facility] Rx#: [id number] Invasive Line 1 10 Invasive Line 2 10 Intake, IV Titration 280.314 Amount Heparin Sod,Pork in 0.45% 120.314 NaCl 25,000 unit In 0.45 % NaCl 1 250ml.bag @ 18 UNITS/KG/HR 19.44 mls/hr IV .[id number] [facility] Rx#: [id number] Sodium Chloride 0.9% 1, 160 000 ml @ 20 mls/hr IV . Q24H [facility]ENN[facility] Rx#:[id number] Oral 720 240 Output: Urine 1050 1075 Other: Voiding Method Urinal # Voids 1 - Exam General appearance: The patient is alert, oriented, appears in no acute distress. HET: Head is normocephalic and atraumatic. Neck: Supple without lymphadenopathy. Trachea midline. Heart: S1 S2. Regular rate and rhythm. Lungs: Clear to auscultation. Abdomen: Soft, nontender, nondistended. Extremities: Normal skin color and turgor. No cyanosis, rash, ulceration, clubbing, or edema. Radial and pedal pulses are 2/4 bilaterally. Neurological: No focal deficits. Alert and oriented 3.. - Labs CBC & Chem 7: 09/20/20 07:24 09/20/20 07:24 Labs: Abnormal Lab Results - Last 24 Hours (Table) 09/19/20 09/19/20 09/19/20 Range/Units 11:28 12:23 17:07 RBC (4.30-5.90) m/uL Hgb (13.0-17.5) gm/dL Hct (39.0-53.0) % RDW (11.5-15.5) % Sodium (137-145) mmol/L BUN (9-20) mg/dL Glucose (74-99) mg/dL POC Glucose (mg/dL) 162 H 155 H (75-99) mg/dL Calcium (8.4-10.2) mg/dL Troponin I 0.171 H* (0.000-0.034) ng/mL 09/19/20 09/20/20 09/20/20 Range/Units 20:29 06:11 07:24 RBC 4.17 L (4.30-5.90) m/uL Hgb 12.1 L (13.0-17.5) gm/dL Hct 35.0 L (39.0-53.0) % RDW 17.7 H (11.5-15.5) % Sodium (137-145) mmol/L BUN (9-20) mg/dL Glucose (74-99) mg/dL POC Glucose (mg/dL) 165 H 128 H (75-99) mg/dL Calcium (8.4-10.2) mg/dL Troponin I (0.000-0.034) ng/mL 09/20/20 09/20/20 Range/Units 07:24 07:24 RBC (4.30-5.90) m/uL Hgb (13.0-17.5) gm/dL Hct (39.0-53.0) % RDW (11.5-15.5) % Sodium 136 L (137-145) mmol/L BUN 24 H (9-20) mg/dL Glucose 109 H (74-99) mg/dL POC Glucose (mg/dL) (75-99) mg/dL Calcium 8.2 L (8.4-10.2) mg/dL Troponin I 0.120 H* (0.000-0.034) ng/mL Microbiology - Last 24 Hours (Table) 09/17/20 09:47 Blood Culture - Preliminary Blood No Growth after 48 hours Assessment and Plan Assessment: 1. Bilateral pulmonary embolism 2. Covid-19 pneumonitis 3. Obesity 4. History hypertension 5. History hyperlipidemia 6. History of coronary artery disease, status post CABG Plan: 1. Symptomatic and supportive care 2. Continue Eliquis 3. Echocardiogram ordered and reviewed 4. Venous Doppler ultrasound bilateral lower extremities ordered and reviewed 5. Pulmonology on consultation, appreciate their recommendations 6. Continue medical management There is no further indication for any vascular surgical intervention. Patient will be discharged home once deemed medically cleared by pulmonology and medicine team. Patient to be discharged home on Eliquis. Thank you for this consultation, we'll sign off at this time The impression and plan of care has been dictated as directed. Dr. Suarez I performed a history and examination of this patient, discussed the same with the dictator. I agree with the dictator's note ,documented as a scribe. Any additional findings or plans will be noted.
[2020-09-20 12:08] LABS: Glucose,Whole Blood 129 mg/dL (75-99)
--- NOTE | 2020-09-20 13:00 | P.PN ---
Subjective Progress Note Date: 09/20/20 70-year-old male patient, presented to the hospital because of shortness of breath. The patient was recently admitted for COVID 19 related pneumonia/infection and the patient was discharged home. The patient was hospitalized between 09/10/2020 and 09/11/2020 and the patient was not requiring oxygen and the patient was discharged home on Decadron. The patient this morning had some increased shortness of breath. He was found to be hypoxic by the EMS. He was brought into the emergency room with a CT angios gram of the chest was done and it shows diffuse bilateral pulmonary embolism with clots beg inning at the level of the main pulmonary artery bilaterally and extending into the secondary and distal branches. The patient also had elevated RV/LV ratio consistent with right ventricular strain pattern. There was also bilateral ground glass pulmonary infiltrates consistent with Covid 19 related pneumonia. The patient also had a Doppler of the lower extremity that showed no evidence of any DVT. The patient is currently on IV heparin. The patient's d-dimer was at 23.2. Initial lactic acid level was 8.6 and subsequently dropped down to 2.4, and the patient a component of anion gap metabolic acidosis with a serum bicarb of 14 and a gap of 16. Creatinine is at 1.1, liver function tests were normal, troponin was less than 0.01, and the white cell count was 20.9 with a hemoglobin of 14.4 and a platelet count of 253. Was found to be quite short of breath and patient was placed on a BiPAP at a pressure of 14/7 cm of water with an FiO2 of 70%. His heart rate is around mid 70s in the most recent BP is 98/68. EKG showing a right bundle branch block pattern. Patient is currently on IV heparin. On today's evaluation of 09/18/2020, the patient was taken off the BiPAP and he was weaned off the apices of oxygen by nasal cannula. His resting comfortably in bed. Has no new complaints. No chest pain. No shortness of breath. Remains on IV heparin. Atelectatic discussion with the vascular surgeon and we opted not to use the intra-arterial thrombolytic system as the patient's condition was stable and the clot burden was not great and the patient was clinically improving. He is hemodynamically stable. His current blood pressure is 105/62. No tachycardia. Echocardiogram was also done and the patient had preserved LV with some mild dysfunction and ejection fraction of 40-45%, there was segmental wall motion abnormalities on the left, RV was moderately dilated and the pulmonary artery pressure was 47. There was evidence of some moderate impairment of the RV function. In any rate, the patient is doing well now 09/19/2020 on seeing the patient for a follow-up. Patient is still on a heparin and the patient is going to be transitioned to long-term anticoagulation with oral anticoagulants. He is currently on 6 L of oxygen by nasal cannula. No new complaints otherwise for now. I discussed the case with the vascular surgery team and we decided to proceed with long-term anticoagulation it compliance analyst and stopped IV heparin. The patient is otherwise doing well. His PTT is therapeutic for now. No chest pain. He has been weaned down to 6 L his current pulse ox is 96% and I'm hoping that we can further weaning his FiO2 down 09/20/2020 patient seen in follow-up care, yesterday he was a transition over to oral anticoagulants Eliquis, currently at 10 mg twice daily, no worsening dyspnea, no chest discomfort, lung sounds for bibasilar crackles. No hemoptysis, currently on 3 L of oxygen prophylaxis 96%, no fever or chills, it is not have been reviewed, electrolytes and renal profile are unremarkable, troponin is 0.12. he is on oral Decadron 6 g daily, multivitamins. Objective - Vital Signs Vital signs: Vital Signs Temp 98 F 09/20/20 08:50 Pulse 78 09/20/20 08:50 Resp 22 09/20/20 08:50 BP 124/70 09/20/20 08:50 Pulse Ox 96 09/20/20 08:50 Intake & Output 09/19/20 09/20/20 09/20/20 18:59 06:59 18:59 Intake Total 1097.164 20 240 Output Total 1050 1075 Balance 47.164 -1055 240 Weight 107.7 kg Intake: IV 96.85 20 Heparin Sod,Pork in 0.45% 96.85 NaCl 25,000 unit In 0.45 % NaCl 1 250ml.bag @ 18 UNITS/KG/HR 19.44 mls/hr IV .[id number] [facility] Rx#: [id number] Invasive Line 1 10 Invasive Line 2 10 Intake, IV Titration 280.314 Amount Heparin Sod,Pork in 0.45% 120.314 NaCl 25,000 unit In 0.45 % NaCl 1 250ml.bag @ 18 UNITS/KG/HR 19.44 mls/hr IV .[id number] JENNIFER Rx#: [id number] Sodium Chloride 0.9% 1, 160 000 ml @ 20 mls/hr IV . Q24H JENNIFER Rx#:[id number] Oral 720 240 Output: Urine 1050 1075 Other: Voiding Method Urinal # Voids 1 - Exam GENERAL EXAM: Alert, very pleasant 70 year old on 3 l/min with pulse ox of 91 comfortable in no apparent distress. HEAD: Normocephalic/atraumatic. EYES: Normal reaction of pupils, equal size. Conjunctiva pink, sclera white. NOSE: Clear with pink turbinates. THROAT: No erythema or exudates. NECK: No masses, no JVD, no thyroid enlargement, no adenopathy. CHEST: No chest wall deformity. Symmetrical expansion. LUNGS: Equal air entry with bibasilar crackles CVS: Regular rate and rhythm, normal S1 and S2, no gallops, no murmurs, no rubs ABDOMEN: Soft, nontender. No hepatosplenomegaly, normal bowel sounds, no guarding or rigidity. EXTREMITIES: No clubbing, no edema, no cyanosis, 2+ pulses and upper and lower extremities. MUSCULOSKELETAL: Muscle strength and tone normal. SPINE: No scoliosis or deformity SKIN: No rashes CENTRAL NERVOUS SYSTEM: Alert and oriented -3. No focal deficits, tone is normal in all 4 extremities. PSYCHIATRIC: Alert and oriented -3. Appropriate affect. Intact judgment and insight. - Labs CBC & Chem 7: 09/20/20 07:24 09/20/20 07:24 Labs: Abnormal Lab Results - Last 24 Hours (Table) 09/19/20 09/19/20 09/19/20 Range/Units 11:28 17:07 20:29 RBC (4.30-5.90) m/uL Hgb (13.0-17.5) gm/dL Hct (39.0-53.0) % RDW (11.5-15.5) % Sodium (137-145) mmol/L BUN (9-20) mg/dL Glucose (74-99) mg/dL POC Glucose (mg/dL) 155 H 165 H (75-99) mg/dL Calcium (8.4-10.2) mg/dL Troponin I 0.171 H* (0.000-0.034) ng/mL 09/20/20 09/20/20 09/20/20 Range/Units 06:11 07:24 07:24 RBC 4.17 L (4.30-5.90) m/uL Hgb 12.1 L (13.0-17.5) gm/dL Hct 35.0 L (39.0-53.0) % RDW 17.7 H (11.5-15.5) % Sodium 136 L (137-145) mmol/L BUN 24 H (9-20) mg/dL Glucose 109 H (74-99) mg/dL POC Glucose (mg/dL) 128 H (75-99) mg/dL Calcium 8.2 L (8.4-10.2) mg/dL Troponin I (0.000-0.034) ng/mL 09/20/20 09/20/20 Range/Units 07:24 12:07 RBC (4.30-5.90) m/uL Hgb (13.0-17.5) gm/dL Hct (39.0-53.0) % RDW (11.5-15.5) % Sodium (137-145) mmol/L BUN (9-20) mg/dL Glucose (74-99) mg/dL POC Glucose (mg/dL) 129 H (75-99) mg/dL Calcium (8.4-10.2) mg/dL Troponin I 0.120 H* (0.000-0.034) ng/mL Microbiology - Last 24 Hours (Table) 09/17/20 09:47 Blood Culture - Preliminary Blood No Growth after 72 hours Assessment and Plan Plan: 1 acute hypoxic respiratory failure and the patient is currently on 6 liters The patient has Covid 19 related pneumonia and bilateral pulmonary embolism both contributing to this acute hypoxic respiratory failure 2 acute bilateral pulmonary embolism and a previous refer to the CT angios and the patient has a RV strain pattern. 3 acute bilateral Covid 19 related pneumonia with minimal groundglass changes bilaterally 4 obstructive sleep apnea maintained on CPAP on outpatient basis 5 coronary artery disease 6 hypertension 7 hyperlipidemia 8 previous history of skin cancer of a basal cell carcinoma type 9 acute lactic acidosis, improved and the patient also had anion gap metabolic acidosis 10 leukocytosis Plan: Patient has been hemodynamically stable, has been transitioned to oral anticoagulants, vital stable, obtain home oxygen assessment, doing well, no worsening dyspnea, increase activity as tolerated, from pulmonary perspective he can be considered for discharge home today outpatient follow-up with Dr. Rosas in the office in 3-4 weeks I performed a history & physical examination of the patient and discussed their management with my nurse practitioner, Sallie Owen. I reviewed the nurse practitioner's note and agree with the documented findings and plan of care. Lung sounds are positive for bibasilar crackles throughout the lung johnson. The findings and the impression was discussed with the patient. I attest to the documentation by the nurse practitioner. Time with Patient: Less than 30
[2020-09-20 13:44] VITALS: BP 120/72; RESP 18
== END 2020-09-20 17:18 | disposition home health service (06) | DRG 177 ==
LOC: EC 07:33 → 3SCARD 12:37
PROVIDERS: ADMIT Hospitalist; ATTEND Hospitalist
PROC: 5A09357 Assistance with Respiratory Ventilation, Less than 24 Consecutive Hours, Continuous Positive Airway Pressure (ICD-10-PCS; principal; 2020-09-17)
DX: U07.1 COVID-19 (principal); J12.82 Pneumonia due to coronavirus disease 2019; I26.99 Other pulmonary embolism without acute cor pulmonale; J96.01 Acute respiratory failure with hypoxia; E87.2 Acidosis; I25.10 Atherosclerotic heart disease of native coronary artery without angina pectoris; E78.5 Hyperlipidemia, unspecified; I10 Essential (primary) hypertension; H91.93 Unspecified hearing loss, bilateral; E66.9 Obesity, unspecified; F41.9 Anxiety disorder, unspecified; T38.0X5A Adverse effect of glucocorticoids and synthetic analogues, initial encounter; D72.828 Other elevated white blood cell count; R73.9 Hyperglycemia, unspecified; I45.10 Unspecified right bundle-branch block; G47.33 Obstructive sleep apnea (adult) (pediatric); Z79.82 Long term (current) use of aspirin; Z79.899 Other long term (current) drug therapy; Z85.828 Personal history of other malignant neoplasm of skin; Z87.891 Personal history of nicotine dependence; Z95.1 Presence of aortocoronary bypass graft; Z83.2 Family history of diseases of the blood and blood-forming organs and certain disorders involving the immune mechanism; Z82.49 Family history of ischemic heart disease and other diseases of the circulatory system; Z90.49 Acquired absence of other specified parts of digestive tract; Z98.890 Other specified postprocedural states; Z68.34 Body mass index [BMI] 34.0-34.9, adult; Z81.8 Family history of other mental and behavioral disorders
CPT/HCPCS: 36415; 71045; 71275; 80048; 80053; 82805; 83036; 83605; 83735; 84145; 84484; 85025; 85379; 85610; 85730; 87040; 93005; 93306; 93970; 94640; 94660; 94760; 99291

== ENCOUNTER → 2020-12-13 | Outpatient (CLI) | payer MEDICARE, OTHER | END | disposition home or self-care (01) | DX: R91.8 Other nonspecific abnormal finding of lung field (principal) ==

== ENCOUNTER 2024-04-04 09:18 | Day surgery (SDC) | payer MEDICARE, OTHER ==
[~2024-04-04 09:18] MED LIST changes: -DEXAMETHASONE SOD PHOSPHATE 10 MG/ML 1 ML VIAL IV ONE; -HEPARIN SODIUM,PORCINE 5,000 UNIT/ML 1 ML VIAL SQ ONE; -LACTATED RINGERS 1,000 ML IV SCH; +LIDOCAINE 1% (10MG/ML) FOR IV START INTRADERMA PRN; -LIDOCAINE 1% 20 ML VIAL (10MG/ML) FOR IV START INTRADERMA PRN; -MIDAZOLAM 2 MG/2 ML VIAL IV PRN; -fentaNYL (PF) 50 MCG/ML 2 ML AMP IV PRN
[2024-04-04] MEDS: IV FLUID CONTINUATION 1,000 ML IV ONE (09:52)
[2024-04-04 09:53] VITALS: TEMP 97
[2024-04-04] MEDS: LACTATED RINGERS 1,000 ML IV SCH (10:00)
[2024-04-04] MEDS ORDERED: PHENYLEPHRINE-0.9% NACL SYG 1,000 MCG/10 ML SYRINGE ONE (10:22)
[2024-04-04] MEDS ORDERED: PROPOFOL 10 MG/ML 20 ML VIAL IV ONE (10:22)
[2024-04-04] MEDS ORDERED: LIDOCAINE 1% INJ 10MG/ML (20 ML MDV) ONE (10:22)
--- NOTE | 2024-04-04 10:43 | P.PCN ---
Date of Procedure: 04/04/24 Procedure(s) Performed: BRIEF HISTORY: Patient is a 73-year-old pleasant white man scheduled for an elective colonoscopy as a part of screening for colon cancer. PROCEDURE PERFORMED: Colonoscopy with cold snare polypectomy. PREOPERATIVE DIAGNOSIS: Screening for colon cancer. IV sedation per Anesthesia. PROCEDURE: After informed consent was obtained, the patient, was brought into the endoscopy unit. IV sedation was administered by Anesthesia under continuous monitoring. Digital rectal examination was normal. Initially the Olympus CF-160 flexible video colonoscope was then inserted in the rectum, gradually advanced into the cecum without any difficulty. Careful examination was performed as the scope was gradually being withdrawn. Ileocecal valve and the appendiceal orifice were visualized and appeared normal. Prep was excellent. Mucosa of the cecum, ascending colon normal. The transverse colon there was a 5 mm polyp that was removed by cold snare polypectomy. Rest of the, transverse colon, descending colon, sigmoid colon, and rectum appeared normal. Scattered sigmoid diverticulosis. Retroflexion was performed in the rectum and no lesions were seen. The patient tolerated the procedure well. IMPRESSION: 5 mm transverse colon colon polyp status post cold snare polypectomy Scattered sigmoid diverticulosis RECOMMENDATIONS: Findings of this examination were discussed with the patient as well as his family. He was advised to follow-up with the biopsy results. If the biopsy reveals adenoma he can have repeat colonoscopy in 5 years..
[2024-04-04 11:08] VITALS: BP 126/76; PULSE 65; RESP 16
== END 2024-04-04 11:32 | disposition home or self-care (01) ==
LOC: ORWHC2ENDO 09:18
PROVIDERS: ATTEND Internal Medicine Gastroenterology
DX: Z12.11 Encounter for screening for malignant neoplasm of colon (principal); D12.3 Benign neoplasm of transverse colon; K57.30 Diverticulosis of large intestine without perforation or abscess without bleeding; Z86.0100 Personal history of colon polyps, unspecified; I25.10 Atherosclerotic heart disease of native coronary artery without angina pectoris; E78.5 Hyperlipidemia, unspecified; I10 Essential (primary) hypertension; G47.33 Obstructive sleep apnea (adult) (pediatric); M19.90 Unspecified osteoarthritis, unspecified site; F41.9 Anxiety disorder, unspecified; F17.210 Nicotine dependence, cigarettes, uncomplicated; H91.90 Unspecified hearing loss, unspecified ear; Z79.899 Other long term (current) drug therapy; Z85.828 Personal history of other malignant neoplasm of skin; Z79.82 Long term (current) use of aspirin; Z95.1 Presence of aortocoronary bypass graft
CPT/HCPCS: 88305; 45385; J2003; J2704; J2371